=== PATIENT | female | born 1960 | race Hispanic/Latino ===

== ENCOUNTER 2018-11-02 08:47 | Inpatient (IN) | payer MEDICARE, MEDICAID ==
[2018-11-02 09:04] VITALS: BMI 29.2
[2018-11-02] MEDS ORDERED: Sodium Chloride 0.9% 1,000 ML IV STA (09:05)
--- NOTE | 2018-11-02 09:19 | ED PDOC ---
Arrival/HPI - General Chief Complaint: Abdominal Pain Time Seen by Provider: 11/02/18 08:49 Historian: Patient - History of Present Illness Narrative History of Present Illness (Text): 11/02/18 09:22 A 58 year old female, whose past medical history includes gallstones, COPD and [place] (5 yrs ago), presents to the emergency department complaining of right-side abdominal pain. Patient reports she was recently in a hospital down in [facility], where she was diagnosed with cholecystitis. Patient was prescribed antibiotics, which she completed about 3 weeks ago. Patient mentions she was instructed to go to the ER if she began experiencing back pain and fever. Notes experiencing those symptoms at this time, along with multiple episodes of vomiting. States she has not taken anything for pain. Patient denies any other complaints at this time. No PMD Past Medical History - Provider Review Nursing Documentation Reviewed: Yes - Reproductive Menopause: Yes - Cardiac Hx Cardiac Disorders: Yes Hx Hypertension: Yes - Pulmonary Hx Chronic Obstructive Pulmonary Disease (COPD): Yes - Gastrointestinal Hx Gastrointestinal Disorders: Yes Hx Gall Bladder Disease: Yes Hx Gastroesophageal Reflux: Yes Hx Gastrointestinal Ulcer: Yes - Psychiatric Hx Substance Use: No - Surgical History Hx Musculoskeletal Surgery: Yes - Anesthesia Hx Anesthesia: Yes Hx Anesthesia Reactions: No Hx Malignant Hyperthermia: No Family/Social History - Physician Review Nursing Documentation Reviewed: Yes Family/Social History: No Known Family HX Smoking Status: Heavy Smoker > 10 Cigarettes Daily Hx Alcohol Use: No Hx Substance Use: No Allergies/Home Meds Allergies/Adverse Reactions: Allergies chocolate flavor Allergy (Verified 11/02/18 09:03) RASH peanut Allergy (Verified 11/02/18 09:03) ANGIOEDEMA Home Medications: Home Meds Medication Instructions Recorded Confirmed Atorvastatin [Lipitor] 10 mg PO DIN 11/02/18 11/02/18 Clopidogrel [Plavix] 75 mg PO DAILY 11/02/18 11/02/18 Fluticasone/Vilanterol 100/25 1 puff PO DAILY 11/02/18 11/02/18 [Breo Ellipta 100-25 MCG INH] Mirtazapine [Remeron] 15 mg PO HS 11/02/18 11/02/18 Olanzapine [Zyprexa] 5 mg PO BID 11/02/18 11/02/18 Pantoprazole [Protonix] 40 mg PO DAILY 11/02/18 11/02/18 Pregabalin [Lyrica] 50 mg PO TID 11/02/18 11/02/18 RX: Aspirin [Aspirin Chewable] 81 mg PO DAILY 11/02/18 11/02/18 amLODIPine [Norvasc] 5 mg PO DAILY 11/02/18 11/02/18 Review of Systems - Physician Review All systems were reviewed & negative as marked: Yes - Review of Systems Constitutional: Fevers Gastrointestinal: Abdominal Pain (right-side), Vomiting Musculoskeletal: Back Pain Physical Exam Vital Signs Reviewed: Yes Vital Signs Temp Pulse Resp BP Pulse Ox 11/02/18 08:48 98.7 F 92 H 18 135/88 99 Temperature: Afebrile Blood Pressure: Normal Pulse: Regular Respiratory Rate: Normal Appearance: Positive for: Well-Appearing, Non-Toxic, Comfortable Pain Distress: None Mental Status: Positive for: Alert and Oriented X 3 - Systems Exam Head: Present: Atraumatic, Normocephalic Pupils: Present: PERRL Extroacular Muscles: Present: EOMI Conjunctiva: Present: Normal Mouth: Present: Moist Mucous Membranes Neck: Present: Normal Range of Motion Respiratory/Chest: Present: Clear to Auscultation, Good Air Exchange. No: Respiratory Distress, Accessory Muscle Use, Tachypneic Cardiovascular: Present: Regular Rate and Rhythm, Normal S1, S2. No: Murmurs, Tachycardic Abdomen: Present: Tenderness (tenderness to palpation at RUQ). No: Distention, Peritoneal Signs Back: Present: Normal Inspection Upper Extremity: Present: Tenderness (right shoulder). No: Cyanosis, Edema Lower Extremity: Present: Normal Inspection. No: Edema Neurological: Present: GCS=15, CN II-XII Intact, Speech Normal Skin: Present: Warm, Dry, Normal Color. No: Rashes Psychiatric: Present: Alert, Oriented x 3, Normal Insight, Normal Concentration Medical Decision Making ED Course and Treatment: 11/02/18 09:24 Impression: 58 year old female with right-side abdominal pain, multiple episodes of vomiting, back pain, and fever. Plan: -- EKG -- Abdominal Ultrasound -- Chest X-ray -- Labs -- Venous Blood Gas -- Toradol -- Reglan --Maolox -- --Pepcid -- IV Fluids -- Urinalysis -- Reassess and disposition Progress Notes: 11/02/2018 10:46 Labs reviewed with no elevation in bilirubin and transaminases. Surgery resident evaluated patient with no acute surgical intervention to be offered at this time. Upon interrogation, patient reports feelings of suicidal ideation. 11/02/18 12:43 PES feather mixer called. Patient is medically cleared at this time. 11/02/18 13:43 PES feather mixer assesses patient deeming her eligible for inpatient psychiatric admission. She is stable for transfer to the floor - Lab Interpretations Lab Results: 11/02/18 09:42 11/02/18 09:42 Lab Results 11/02/18 09:42: Free T4 0.85, TSH 3rd Generation Pending, Alcohol, Quantitative < 10 11/02/18 09:42: Salicylates < 1 L 11/02/18 09:42: Sodium 134, Chloride 96 L, Potassium 4.7, Carbon Dioxide 23, Anion Gap 20, BUN 13, Creatinine 0.6 L, Est GFR ( Amer) > 60, Est GFR (Non-Af Amer) > 60, Random Glucose 72, Calcium 9.8, Magnesium 1.8, Total Bilirubin 0.8, AST 35, ALT 32, Alkaline Phosphatase 98, Troponin I < 0.01, Total Protein 8.3, Albumin 4.6, Globulin 3.7, Albumin/Globulin Ratio 1.2, Lipase 40 11/02/18 09:42: pO2 41, VBG pH 7.31 L, VBG pCO2 44.0, VBG HCO3 22.2, VBG Total CO2 23.6, VBG O2 Sat (Calc) 78.4 H, VBG Base Excess -4.1 L, VBG Potassium 4.0, Sodium 132.0, Chloride 95.0 L, Glucose 72, Lactate 2.0, FiO2 21.0, Venous Blood Potassium 4.0 11/02/18 09:42: Urine Color Yellow, Urine Appearance Clear, Urine pH 6.0, Ur Specific [place] 1.020, Urine Protein Negative, Urine Glucose (UA) Negative, Urine Ketones >=80, Urine Blood Trace-intact H, Urine Nitrate Negative, Urine Bi lirubin Negative, Urine Urobilinogen 0.2, Ur Leukocyte Esterase Negative, Urine RBC 1 - 3 H, Urine WBC 0 - 2, Ur Epithelial Cells 1 - 3, Urine Bacteria Few 11/02/18 09:42: PT 11.3, INR 0.98, APTT 27.8 11/02/18 09:42: WBC 7.9, RBC 4.24, Hgb 12.3, Hct 37.1, MCV 87.5, MCH 29.0, MCHC 33.2, RDW 14.7 H, Plt Count 341, MPV 9.2, Gran % 64.8, Lymph % (Auto) 24.6, [place] % (Auto) 9.6 H, Eos % (Auto) 0.1 L, Baso % (Auto) 0.9, Gran # 5.09, Lymph # (Auto) 1.9, [place] # (Auto) 0.8 H, Eos # (Auto) 0.0, Baso # (Auto) 0.07 I have reviewed the lab results: Yes - RAD Interpretation Narrative RAD Interpretations (Text): 11/02/2018 10:10 Chest X-ray IMPRESSION: No active pulmonary disease. COPD. Dictator: Evelyn Gilliland MD Radiology Orders: 11/02/18 09:05 CHEST PORTABLE [RAD] Stat ABDOMEN COMPLETE [US] Stat - EKG Interpretation EKG Interpretation (Text): 11/02/18 12:45 Abdominal Ultrasound IMPRESSION: No cholethiasis or or biliary dilatation. Dictator: Evelyn Gilliland MD Interpreted by ED Physician: Yes - Medication Orders Current Medication Orders: Sodium Chloride (Sodium Chloride 0.9%) 1,000 mls @ 1,000 mls/hr IV .Q1H STA Stop: 11/02/18 10:04 Discontinued Medications Ketorolac Tromethamine (Toradol) 30 mg IVP STAT STA Stop: 11/02/18 09:06 Metoclopramide HCl (Reglan) 10 mg IVP STAT STA Stop: 11/02/18 09:06 - Scribe Statement The provider has reviewed the documentation as recorded by the Deborah Ayala Provider Scribe Attestation: All medical record entries made by the Jayibcaitlin were at my direction and personally dictated by me. I have reviewed the chart and agree that the record accurately reflects my personal performance of the history, physical exam, medical decision making, and the department course for this patient. I have also personally directed, reviewed, and agree with the discharge instructions and disposition. Disposition/Present on Arrival - Present on Arrival Any Indicators Present on Arrival: No History of DVT/PE: No History of Uncontrolled Diabetes: No Urinary Catheter: No History of Decub. Ulcer: No History Surgical Site Infection Following: None - Disposition Have Diagnosis and Disposition been Completed?: Yes Diagnosis: Depression Disposition: HOSPITALIZED Disposition Time: 13:00 Patient Plan: Admission Patient Problems: Current Active Problems Problem Status Onset Anxiety Acute Depression Acute Condition: STABLE
[2018-11-02 10:04] LABS: BASO # 0.07 K/mm3 (0.0-2.0); BASO % 0.9 % (0.0-3.0); EOS % 0.1 % (1.5-5.0); GRAN # 5.09 (1.4-6.5); GRAN % 64.8 % (50.0-68.0); HEMOGLOBIN 12.3 g/dL (12.0-16.0); LYMPH # 1.9 (1.2-3.4); LYMPH % 24.6 % (22.0-35.0); MEAN CELL VOLUME 87.5 fl (80.0-105.0); MEAN CORPUSCULAR HGB CONC 33.2 g/dl (31.0-37.0); MEAN PLATELET VOLUME 9.2 fl (7.0-11.0); MONO # 0.8 (0.1-0.6); MONO % 9.6 % (1.0-6.0); RBC 4.24 10^6/uL (3.5-6.1); RED CELL DISTRIBUTION WIDTH 14.7 % (11.5-14.5); WHITE BLOOD COUNT 7.9 10^3/uL (4.5-11.0)
[2018-11-02 10:09] LABS: VENOUS BLOOD GAS BASE EXCESS -4.1 mmol/L (0.0-2.0); VENOUS BLOOD GAS PO2 41 mm/Hg (30-55); VENOUS BLOOD PH 7.31 (7.32-7.43)
[2018-11-02 10:12] LABS: INR 0.98; PARTIAL THROMBOPLASTIN TIME 27.8 Seconds (25.1-36.5); PROTHROMBIN TIME 11.3 SECONDS (9.4-12.5)
--- NOTE | 2018-11-02 10:13 | RAD ---
Date of service: 11/02/2018 HISTORY: RUQ abdominal pain r/o free air COMPARISON: No prior. FINDINGS: LUNGS: The lungs are hyperinflated and there is peribronchial thickening with chronic changes in both lungs. No focal consolidation. PLEURA: No pleural effusions or pneumothorax. CARDIOVASCULAR: The heart is normal in size. No aortic atherosclerotic calcifications present. OSSEOUS STRUCTURES: Within normal limits for the patient's age. VISUALIZED UPPER ABDOMEN: Normal. OTHER FINDINGS: None. IMPRESSION: No active pulmonary disease. COPD.
[2018-11-02 10:26] LABS: TROPONIN I < 0.01 ng/mL
[2018-11-02 10:36] LABS: ALB/GLOB RATIO 1.2 (1.1-1.8); ALBUMIN 4.6 g/dL (3.0-4.8); ALT/SGPT 32 U/L (7-56); AST/SGOT 35 U/L (14-36); BLOOD UREA NITROGEN 13 mg/dL (7-21); CALCIUM 9.8 mg/dL (8.4-10.5); GFR NON-AFRICAN AMERICAN > 60; LIPASE 40 U/L (23-300)
[2018-11-02 10:40] LABS: URINE APPEARANCE CLEAR (CLEAR); URINE BILIRUBIN NEGATIVE (NEGATIVE); URINE BLOOD TRACE-INTACT (NEGATIVE); URINE COLOR YELLOW (YELLOW); URINE GLUCOSE (UA) NEGATIVE (NEGATIVE); URINE LEUKOCYTE ESTERASE NEGATIVE Leu/uL (NEGATIVE); URINE PROTEIN NEGATIVE mg/dL (<30 mg/dL); URINE UROBILINOGEN 0.2 E.U./dL (<1 E.U./dL)
[2018-11-02 10:44] LABS: URINE BACTERIA FEW /hpf; URINE WBC 0 - 2 /hpf (0-6)
--- NOTE | 2018-11-02 10:50 | US ---
Date of service: 11/02/2018 HISTORY: RUQ pain w/ h/o cholecystitis COMPARISON: None. TECHNIQUE: Grayscale imaging was performed. FINDINGS: LIVER: Measures 13.7 cm. Normal echogenicity of the liver parenchyma. No mass. No intrahepatic bile duct dilatation. GALLBLADDER: There are no gallstones, wall thickening or pericholecystic fluid. The sonographic Lindo's sign is negative. COMMON BILE DUCT: Measures 5.2 mm. No stones. No dilatation. PANCREAS: Unremarkable as visualized. No mass. No ductal dilatation. RIGHT KIDNEY: Measures 10.4cm. Normal echogenicity. No calculus, mass, or hydronephrosis. LEFT KIDNEY: Measures 9.5cm. Normal echogenicity. No calculus, mass, or hydronephrosis. SPLEEN: Normal in size and contour. No mass. AORTA: No aneurysmal dilatation. IVC: Unremarkable. OTHER FINDINGS: None. IMPRESSION: No cholelithiasis or biliary dilatation.
--- NOTE | 2018-11-02 11:29 | CP.PCM.CON ---
History of Present Illness - History of Present Illness History of Present Illness: Resident Progress Note for Dr. Middleton Patient is a 58 year old female with past medical history peptic ulcer disease, COPD, and M.I. presenting with chief complaint of abdominal pain and back pain which began approximately a month prior. Patient also admits to subjective fevers, nausea, vomiting, diarrhea. Patient states she was diagnosed with cholecysitis recently for which she completed a course of antibiotics 3 weeks prior. Her most recent endoscopy was one month ago which showed peptic ulcer disease. Denies chills, chest pain, shortness of breath. Review of Systems - Review of Systems All systems: reviewed and no additional remarkable complaints except (as stated in HPI) Past Patient History - Past Social History Smoking Status: Heavy Smoker > 10 Cigarettes Daily - CARDIAC Hx Cardiac Disorders: Yes Hx Hypertension: Yes - PULMONARY Hx Chronic Obstructive Pulmonary Disease (COPD): Yes - GASTROINTESTINAL Hx Gastrointestinal Disorders: Yes Hx Gall Bladder Disease: Yes Hx Gastroesophageal Reflux: Yes - PSYCHIATRIC Hx Substance Use: No - SURGICAL HISTORY Hx Musculoskeletal Surgery: Yes - ANESTHESIA Hx Anesthesia: Yes Hx Anesthesia Reactions: No Hx Malignant Hyperthermia: No Meds Allergies/Adverse Reactions: Allergies Allergy/AdvReac Type Severity Reaction Status Date / Time chocolate flavor Allergy RASH Verified 11/02/18 09:03 peanut Allergy ANGIOEDEMA Verified 11/02/18 09:03 Physical Exam - Constitutional Appears: Non-toxic, No Acute Distress - Head Exam Head Exam: ATRAUMATIC, NORMOCEPHALIC - Eye Exam Eye Exam: EOMI - ENT Exam ENT Exam: Mucous Membranes Moist - Respiratory Exam Respiratory Exam: NORMAL BREATHING PATTERN. absent: Accessory Muscle Use, Respiratory Distress - Cardiovascular Exam Cardiovascular Exam: REGULAR RHYTHM, +S1, +S2 - GI/Abdominal Exam GI & Abdominal Exam: Soft, Tenderness (mild epigastric ). absent: Distended, Firm, Guarding, Mass, Rebound, Rigid - Extremities Exam Extremities exam: Positive for: normal inspection. Negative for: pedal edema - Neurological Exam Neurological exam: Alert, Oriented x3 - Psychiatric Exam Psychiatric exam: Normal Affect, Normal Mood - Skin Skin Exam: Dry, Intact, Normal Color Results - Vital Signs Recent Vital Signs: Last Vital Signs Temp 98.7 F 11/02/18 08:48 Pulse 92 H 11/02/18 08:48 Resp 18 11/02/18 08:48 BP 135/88 11/02/18 08:48 Pulse Ox 99 01/15/19 08:48 - Labs Result Diagrams: 11/02/18 09:42 11/02/18 09:42 Labs: Laboratory Results - last 24 hr 11/02/18 11/02/18 11/02/18 09:42 09:42 09:42 WBC 7.9 RBC 4.24 Hgb 12.3 Hct 37.1 MCV 87.5 MCH 29.0 MCHC 33.2 RDW 14.7 H Plt Count 341 MPV 9.2 Gran % 64.8 Lymph % (Auto) 24.6 [place] % (Auto) 9.6 H Eos % (Auto) 0.1 L Baso % (Auto) 0.9 Gran # 5.09 Lymph # (Auto) 1.9 [place] # (Auto) 0.8 H Eos # (Auto) 0.0 Baso # (Auto) 0.07 PT 11.3 INR 0.98 APTT 27.8 pO2 VBG pH VBG pCO2 VBG HCO3 VBG Total CO2 VBG O2 Sat (Calc) VBG Base Excess VBG Potassium Sodium Chloride Glucose Lactate FiO2 Potassium Carbon Dioxide Anion Gap BUN Creatinine Est GFR ( Amer) Est GFR (Non-Af Amer) Random Glucose Calcium Magnesium Total Bilirubin AST ALT Alkaline Phosphatase Troponin I Total Protein Albumin Globulin Albumin/Globulin Ratio Lipase Venous Blood Potassium Urine Color Yellow Urine Appearance Clear Urine pH 6.0 Ur Specific [place] 1.020 Urine Protein Negative Urine Glucose (UA) Negative Urine Ketones >=80 Urine Blood Trace-intact H Urine Nitrate Negative Urine Bilirubin Negative Urine Urobilinogen 0.2 Ur Leukocyte Esterase Negative Urine RBC 1 - 3 H Urine WBC 0 - 2 Ur Epithelial Cells 1 - 3 Urine Bacteria Few 11/02/18 11/02/18 09:42 09:42 WBC RBC Hgb Hct MCV MCH MCHC RDW Plt Count MPV Gran % Lymph % (Auto) [place] % (Auto) Eos % (Auto) Baso % (Auto) Gran # Lymph # (Auto) [place] # (Auto) Eos # (Auto) Baso # (Auto) PT INR APTT pO2 41 VBG pH 7.31 L VBG pCO2 44.0 VBG HCO3 22.2 VBG Total CO2 23.6 VBG O2 Sat (Calc) 78.4 H VBG Base Excess -4.1 L VBG Potassium 4.0 Sodium 132.0 134 Chloride 95.0 L 96 L Glucose 72 Lactate 2.0 FiO2 21.0 Potassium 4.7 Carbon Dioxide 23 Anion Gap 20 BUN 13 Creatinine 0.6 L Est GFR ( Amer) > 60 Est GFR (Non-Af Amer) > 60 Random Glucose 72 Calcium 9.8 Magnesium 1.8 Total Bilirubin 0.8 AST 35 ALT 32 Alkaline Phosphatase 98 Troponin I < 0.01 Total Protein 8.3 Albumin 4.6 Globulin 3.7 Albumin/Globulin Ratio 1.2 Lipase 40 Venous Blood Potassium 4.0 Urine Color Urine Appearance Urine pH Ur Specific [place] Urine Protein Urine Glucose (UA) Urine Ketones Urine Blood Urine Nitrate Urine Bilirubin Urine Urobilinogen Ur Leukocyte Esterase Urine RBC Urine WBC Ur Epithelial Cells Urine Bacteria Assessment & Plan - Assessment and Plan (Free Text) Assessment: Patient is a 58 year old female with past medical history peptic ulcer disease, COPD, and M.I. presenting with chief complaint of abdominal pain and back pain Plan: Abdominal pain - history of peptic ulcer disease - afebrile, no leukocytosis, LFTs within normal limits - Abd U/S shows no signs of cholecystitis, no renal calculi - CXR unremarkable - no surgical intervention indicated at this time Nikkie Vega PGY-1 - Date & Time Date: 11/02/18 Time: 11:31
[2018-11-02 12:35] LABS: FREE T4 0.85 ng/dL (0.78-2.19)
[2018-11-02] MEDS ORDERED: Alum-Mag Hydrox-Simethicone Susp (30 mL) PO STA (12:42)
[2018-11-02] MEDS ORDERED: Atrop/Hyosc/Scopal/PB Elixir (120 ml) PO STA (12:42)
[2018-11-02 12:55] LABS: BENZODIAZEPINES, UR NEGATIVE (NEGATIVE)
[2018-11-02 13:02] LABS: BARBITURATES, UR NEGATIVE (NEGATIVE); OPIATES, UR NEGATIVE (NEGATIVE); PHENCYCLIDINE, UR NEGATIVE (NEGATIVE)
[2018-11-02] MEDS ORDERED: Magnesium Hydroxide Susp 30 ml UD PO PRN (16:54)
--- NOTE | 2018-11-02 18:39 | PCM.BM ---
<Jenniffer Gonzalez - Last Filed: 11/02/18 18:35> Treatment Plan Problems - Problems identified on initial assessmt anxiety Date Initiated: 11/02/18 Time Initiated: 18:30 Assessment reference: NA Status: Active Priority: 1 fear Date Initiated: 11/02/18 Time Initiated: 18:30 Status: Active Priority: 2 panic attacks Date Initiated: 11/02/18 Time Initiated: 18:30 Assessment reference: NA Status: Active Priority: 3 altered sleep pattern Date Initiated: 11/02/18 Time Initiated: 18:30 Assessment reference: NA Status: Active Priority: 4 Treatment assets and liabiliti Patient Assests: cooperative, ADL independent, cognitively intact Patient Liabilities: live alone, financial problems, poor support system - Milieu Protocol Maintain good personal hygiene: every shift Encourage regular showers, every shift Remind patient to perform daily oral care, every shift Assist patient to perform ADL's Maintain personal safety: every shift Educate patient to report safety concerns to staff, every shift Monitor environment for contraband/sharps Medication safety: Monitor for expected outcome, potential side effects: every shift, Assess barriers to learning: every shift, Assess readiness for medication education: every shift Discharge/Continuing Care - Education Needs Education Needs: Patient Medication, Patient Diagnosis/Disease Process, Patient Coping Skills, Patient Placement options, Patient Community resources, Patient Activities of Daily Living, Patient Pain, Patient Nutrition, Patient Health Practices/Safety, Patient Personal Hygiene/Grooming, Patient Aftercare Safety Plan - Discharge Discharge Criteria: Tolerates medication w/o severe side effects, Free of Suicidal thoughts, Normal sleep pattern, Ability to care for self, Reduction of target symptoms Discharge to:: Home <Teresa Stahl - Last Filed: 11/03/18 13:52> - Diagnosis (1) Depression Status: Acute Interventions: 11/03/18 13:52 Psychoeducation Psychopharmacology/adjustment of medications as needed/ monitoring possible side effects Evaluate pt on daily basis Compliance with medications and follow up appointments Suicide and homicide risk assessment and prevention Relapse prevention Reduction of symptoms Improve functional status Family involvement As outpatient: cognitive behavioral therapy (2) Anxiety Status: Acute Interventions: 11/03/18 13:52 Psychoeducation Psychopharmacology/adjustment of medications as needed/ monitoring possible side effects Evaluate pt on daily basis Discussion of importance of being compliant with medications and follow up appointments Suicide and homicide risk assessment and prevention, coping strategies, safety plan Reduction of symptoms Relaxation techniques and breathing exercises Improve functional status Family involvement Cognitive behavioral therapy as outpatient <Tamara Tello - Last Filed: 11/03/18 16:07>
--- NOTE | 2018-11-03 07:37 | CARD ---
APPROVED REPORT Date of service: 11/02/2018 EKG Measurement Heart [id number] <Conclusion> Normal sinus rhythm Possible Left atrial enlargement Possible septal infarct, age undetermined
[2018-11-03] MEDS: Pantoprazole 40 mg EC Tab PO SCH (09:48)
--- NOTE | 2018-11-03 10:34 | HP ---
DATE OF EXAM: 11/03/2018 HISTORY OF PRESENT ILLNESS: The patient is in the Behavioral Care Unit. The patient has ALLERGY TO PEANUTS AND CHOCOLATE. She has past history of dermatitis and angioedema for peanuts. The patient's past history is significant in that the patient has depression and the patient has past history of coronary artery disease, has been treated medically, has not had any intervention. The patient had 2 episodes of cerebrovascular events, stroke (the patient has been treated for that). The patient has history of chronic lung disease. The patient has history of hypertension and hypothyroidism. SOCIAL HISTORY: The patient is a smoker. PAST SURGICAL HISTORY: She has injury to the right arm, compound fracture that has completely healed. The patient has no other advanced surgical procedures. PHYSICAL EXAMINATION: VITAL SIGNS: The patient's pulse is 89, blood pressure 153/102, but standard blood pressure is 131/75. The patient respirations 22 per minute, HEENT: The patient's head is normocephalic. She is sitting in the chair comfortably answers all questions. NECK: The patient's neck and thyroid is not clinically enlarged. No lymphadenopathy. Carotid pulses are present. LUNGS: Trachea is central. Breath sounds vesicular. No localizing signs. HEART: Normal sinus rhythm. S1 and S2 present. Sinus tachycardia. ABDOMEN: Soft. Liver and spleen not palpable. CENTRAL NERVOUS SYSTEM: The patient is conscious, rational and oriented. She is able to move all 4 limbs and ambulation seems to be adequate. MEDICATIONS: List of medicine, the patient is on Ativan 1 mg every 6 hours p.r.n. for agitation, Geodon 20 mg every 6 hours p.r.n. for agitation. The patient is on Prozac 20 mg daily, Sonata 5 mg daily for sleep and the patient is supposed to be on Plavix 75 mg. The patient's medications have to be placed. She is also on pantoprazole 40 mg daily. The patient is on amlodipine 5 mg daily, Lipitor 10 mg daily. We will have to place these medications. She gets Breo Ellipta that is for chronic lung disease, the patient gets it once a day. DIET: The patient's diet is heart healthy diet. PLAN: We will follow up medically and we will introduce some medications she was supposed to be on. We want to check these medicines and add the Lipitor on this lady. She is supposed to be on Protonix, Plavix, Lipitor and amlodipine. Jose Alfredo Bolanos MD [facility]
--- NOTE | 2018-11-03 13:24 | CP.PCM.CON ---
<Erickson Paul - Last Filed: 11/03/18 17:33> History of Present Illness - History of Present Illness History of Present Illness: GI Consult Note for Dr. Cho Reason for Consultation: Abdominal pain Patient is a 58 yo F with PMH of PUD, COPD, and NV presents to [facility] for 1 month of abdominal and back pain. Patient states that she was admitted to another hospital about one month ago and was diagnosed with acute cholecystitis. Patient was treated with IV antibiotics and PO antibiotics on discharge. Patient was not aware of any plan for cholecystectomy at that time. Patient is currently admitted to [facility] for depression. GI was consulted due to abdominal pain. At time of admission patient complained of subjective fever as well as n/v/d. Patient reports pain in RUQ and midback. Pain will intermittently improve. but worsens with food. Patient denies any alleviating factors. Currently, patient denies CP, SOB, n/v/d, fever, chills, HERNANDEZ, or dizziness. PMH: as above Surg: none All: Chocolate flavor, peanut SH: Admits to smoking; denied EtOH and illicit drug use FHx: non-contributory Review of Systems - Review of Systems All systems: reviewed and no additional remarkable complaints except (12 point ROS reviewed and is negative other than what is stated in HPI.) Past Patient History - Past Social History Smoking Status: Heavy Smoker > 10 Cigarettes Daily - CARDIAC Hx Cardiac Disorders: Yes Hx Hypertension: Yes - PULMONARY Hx Tuberculosis: No - NEUROLOGICAL HX Cerebrovascular Accident: No Hx Seizures: No - ENDOCRINE/METABOLIC Hx Hypothyroidism: Yes - HEMATOLOGICAL/ONCOLOGICAL Hx Cancer: No Hx Human Immunodeficiency Virus (HIV): No - MUSCULOSKELETAL/RHEUMATOLOGICAL Hx Musculoskeletal Disorders: No - GASTROINTESTINAL Hx Gastrointestinal Disorders: Yes Hx Gall Bladder Disease: Yes Hx Gastroesophageal Reflux: Yes - GENITOURINARY/GYNECOLOGICAL Hx Sexually Transmitted Disorders: No - PSYCHIATRIC Hx Anxiety: Yes Hx Depression: Yes Hx Substance Use: No - SURGICAL HISTORY Hx Musculoskeletal Surgery: Yes - ANESTHESIA Hx Anesthesia: Yes Hx Anesthesia Reactions: No Hx Malignant Hyperthermia: No Meds Allergies/Adverse Reactions: Allergies Allergy/AdvReac Type Severity Reaction Status Date / Time chocolate flavor Allergy RASH Verified 11/02/18 09:03 peanut Allergy ANGIOEDEMA Verified 11/02/18 09:03 - Medications Medications: Current Medications Acetaminophen (Tylenol 325mg Tab) 650 mg PO Q6H PRN PRN Reason: Pain, moderate (4-7) Al Hydrox/Mg Hydrox/Simethicone (Maalox Plus 30 Ml) 30 ml PO DAILY PRN PRN Reason: Indigestion / Heartburn Amlodipine Besylate (Norvasc) 5 mg PO DAILY [facility] Last Admin: 11/03/18 09:48 Dose: 5 mg Aspirin (Aspirin Chewable) 81 mg PO DAILY [facility] Atorvastatin Calcium (Lipitor) 10 mg PO DIN [facility] Clopidogrel Bisulfate (Plavix) 75 mg PO DAILY [facility] Last Admin: 11/03/18 09:48 Dose: 75 mg Fluoxetine HCl (Prozac) 20 mg PO DAILY [facility] Last Admin: 11/03/18 08:24 Dose: 20 mg Lorazepam (Ativan) 1 mg PO Q6 PRN; Protocol PRN Reason: Anxiety Last Admin: 11/03/18 08:24 Dose: 1 mg Lorazepam (Ativan) 1 mg IM Q6H PRN; Protocol PRN Reason: Anxiety Magnesium Hydroxide (Milk Of Magnesia) 30 ml PO DAILY PRN PRN Reason: Constipation Pantoprazole Sodium (Protonix Ec Tab) 40 mg PO DAILY [facility] Last Admin: 11/03/18 09:48 Dose: 40 mg Pregabalin (Lyrica) 50 mg PO TID [facility] Zaleplon (Sonata) 5 mg PO HS PRN PRN Reason: Insomnia Ziprasidone (Geodon Cap) 20 mg PO Q6 PRN; Protocol PRN Reason: Agitation Ziprasidone (Geodon Inj) 20 mg IM Q6 PRN; Protocol PRN Reason: Agitation Physical Exam - Constitutional Appears: No Acute Distress - Head Exam Head Exam: NORMAL INSPECTION - Eye Exam Eye Exam: EOMI, Normal appearance - ENT Exam ENT Exam: Mucous Membranes Moist, Normal Exam - Neck Exam Neck exam: Positive for: Normal Inspection - Respiratory Exam Respiratory Exam: Clear to Auscultation Bilateral. absent: Rales, Rhonchi, Wheezes - Cardiovascular Exam Cardiovascular Exam: RRR, +S1, +S2. absent: Gallop, Rubs, Systolic Murmur - GI/Abdominal Exam GI & Abdominal Exam: Soft, Tenderness (RUQ, positive Lindo's sign). absent: Distended, Guarding, Rebound - Extremities Exam Extremities exam: Positive for: normal inspection - Back Exam Back exam: NORMAL INSPECTION - Neurological Exam Neurological exam: Alert, Normal Gait, Oriented x3 - Psychiatric Exam Psychiatric exam: Depressed - Skin Skin Exam: Normal Color, Warm Results - Vital Signs Recent Vital Signs: Last Vital Signs Temp 98.6 F 11/03/18 07:34 Pulse 89 11/03/18 09:48 Resp 22 11/03/18 07:34 BP 153/102 H 11/03/18 09:48 Pulse Ox 99 11/02/18 15:23 - Labs Result Diagrams: 11/02/18 09:42 11/02/18 09:42 Labs: Laboratory Results - last 24 hr 11/02/18 12:11 Urine Opiates Screen Negative Ur Barbiturates Screen Negative Ur Phencyclidine Scrn Negative Ur Amphetamines Screen Negative U Oth Cocaine Metabols Negative U Cannabinoids Screen Negative Assessment & Plan - Assessment and Plan (Free Text) Assessment: Patient is a 58 F with PMH of PUD, COPD, NV is admitted to psychiatry for depression. GI consulted for abdominal pain with history of cholecystitis. Abdominal ultrasound shows no signs of acute cholecystitis. LFT's unremarkable, no signs of cholestasis. 1. Abdominal Pain 2. Biliary Colic 3. Depression Plan: - Abdomen/Pelvis CT with PO and IV contrast - Surgery recommended outpatient followup Patient seen and discussed in detail with Dr. Cho. Frank Paul DO PGY2 <Chandler Cho V - Last Filed: 11/03/18 23:57> Meds - Medications Medications: Current Medications Acetaminophen (Tylenol 325mg Tab) 650 mg PO Q6H PRN PRN Reason: Pain, moderate (4-7) Al Hydrox/Mg Hydrox/Simethicone (Maalox Plus 30 Ml) 30 ml PO DAILY PRN PRN Reason: Indigestion / Heartburn Amlodipine Besylate (Norvasc) 5 mg PO DAILY [facility] Last Admin: 11/03/18 09:48 Dose: 5 mg Aspirin (Aspirin Chewable) 81 mg PO DAILY [facility] Atorvastatin Calcium (Lipitor) 10 mg PO DIN [facility] Last Admin: 11/03/18 17:38 Dose: 10 mg Clopidogrel Bisulfate (Plavix) 75 mg PO DAILY [facility] Last Admin: 11/03/18 09:48 Dose: 75 mg Lorazepam (Ativan) 1 mg PO Q6 PRN; Protocol PRN Reason: Anxiety Last Admin: 11/03/18 21:25 Dose: 1 mg Lorazepam (Ativan) 1 mg IM Q6H PRN; Protocol PRN Reason: Anxiety Magnesium Hydroxide (Milk Of Magnesia) 30 ml PO DAILY PRN PRN Reason: Constipation Nicotine (Nicoderm Cq) 1 patch TD DAILY [facility] Last Admin: 11/03/18 17:29 Dose: Not Given Pantoprazole Sodium (Protonix Ec Tab) 40 mg PO DAILY [facility] Last Admin: 11/03/18 09:48 Dose: 40 mg Pregabalin (Lyrica) 50 mg PO TID [facility] Last Admin: 11/03/18 17:38 Dose: 50 mg Sertraline HCl (Zoloft) 50 mg PO DAILY [facility] Zaleplon (Sonata) 5 mg PO HS PRN PRN Reason: Insomnia Last Admin: 11/03/18 21:25 Dose: 5 mg Ziprasidone (Geodon Cap) 20 mg PO Q6 PRN; Protocol PRN Reason: Agitation Ziprasidone (Geodon Inj) 20 mg IM Q6 PRN; Protocol PRN Reason: Agitation Results - Vital Signs Recent Vital Signs: Last Vital Signs Temp 98.6 F 11/03/18 07:34 Pulse 81 11/03/18 16:00 Resp 22 11/03/18 07:34 BP 123/89 11/03/18 16:00 Pulse Ox 99 11/02/18 15:23 - Labs Result Diagrams: 11/02/18 09:42 11/02/18 09:42 Attending/Attestation - Attestation I have personally seen and examined this patient.: Yes I have fully participated in the care of the patient.: Yes I have reviewed all pertinent clinical information: Yes Notes (Text): This is an addendum to GI consult report dictated by the Flight Radio Officer. The patient was seen and evaluated earlier. Medical records, lab studies, imagings were reviewed. Last 24 hours events reviewed. Agreed with the above treatment plan as outlined in Flight Radio Officer 's notes with the addition of the following 11/03/18 23:55
[2018-11-04] MEDS ORDERED: Barium Sulfate Susp 2.1% w/v, 2.0% w/w 450 mL Bottle PO ONE (00:54)
--- NOTE | 2018-11-04 08:31 | CP.PCM.PN ---
Subjective - Date & Time of Evaluation Date of Evaluation: 11/04/18 Time of Evaluation: 07:45 - Subjective Subjective: Patient seen this morning. she says that she had an abdominal ultrasound. Objective - Vital Signs/Intake and Output Vital Signs (last 24 hours): Temp Pulse Resp BP Pulse Ox 98.5 F 92 H 20 142/105 H 99 11/04/18 07:08 11/04/18 07:08 11/04/18 07:08 11/04/18 07:08 11/02/18 15:23 - Medications Medications: Current Medications Acetaminophen (Tylenol 325mg Tab) 650 mg PO Q6H PRN PRN Reason: Pain, moderate (4-7) Last Admin: 11/04/18 06:44 Dose: 650 mg Al Hydrox/Mg Hydrox/Simethicone (Maalox Plus 30 Ml) 30 ml PO DAILY PRN PRN Reason: Indigestion / Heartburn Amlodipine Besylate (Norvasc) 5 mg PO DAILY [facility] Last Admin: 11/03/18 09:48 Dose: 5 mg Aspirin (Aspirin Chewable) 81 mg PO DAILY [facility] Atorvastatin Calcium (Lipitor) 10 mg PO DIN [facility] Last Admin: 11/03/18 17:38 Dose: 10 mg Clopidogrel Bisulfate (Plavix) 75 mg PO DAILY [facility] Last Admin: 11/03/18 09:48 Dose: 75 mg Lorazepam (Ativan) 1 mg PO Q6 PRN; Protocol PRN Reason: Anxiety Last Admin: 11/04/18 06:20 Dose: 1 mg Lorazepam (Ativan) 1 mg IM Q6H PRN; Protocol PRN Reason: Anxiety Magnesium Hydroxide (Milk Of Magnesia) 30 ml PO DAILY PRN PRN Reason: Constipation Metoprolol Succinate (Toprol Xl) 50 mg PO BRK [facility] Nicotine (Nicoderm Cq) 1 patch TD DAILY [facility] Last Admin: 11/03/18 17:29 Dose: Not Given Pantoprazole Sodium (Protonix Ec Tab) 40 mg PO DAILY [facility] Last Admin: 11/03/18 09:48 Dose: 40 mg Pregabalin (Lyrica) 50 mg PO TID [facility] Last Admin: 11/03/18 17:38 Dose: 50 mg Sertraline HCl (Zoloft) 50 mg PO DAILY [facility] Zaleplon (Sonata) 5 mg PO HS PRN PRN Reason: Insomnia Last Admin: 11/03/18 21:25 Dose: 5 mg Ziprasidone (Geodon Cap) 20 mg PO Q6 PRN; Protocol PRN Reason: Agitation Ziprasidone (Geodon Inj) 20 mg IM Q6 PRN; Protocol PRN Reason: Agitation - Labs Labs: 11/02/18 09:42 11/02/18 09:42 PT 11.3 SECONDS (9.4-12.5) 11/02/18 09:42 INR 0.98 11/02/18 09:42 APTT 27.8 Seconds (25.1-36.5) 11/02/18 09:42 - Constitutional Appears: No Acute Distress - Head Exam Head Exam: ATRAUMATIC, NORMOCEPHALIC - Respiratory Exam Respiratory Exam: Clear to Ausculation Bilateral, NORMAL BREATHING PATTERN - Cardiovascular Exam Cardiovascular Exam: REGULAR RHYTHM, +S1, +S2 - GI/Abdominal Exam GI & Abdominal Exam: Soft, Normal Bowel Sounds. absent: Tenderness - Extremities Exam Extremities Exam: Normal Inspection - Neurological Exam Neurological Exam: Alert, Awake, Oriented x3 Assessment and Plan - Assessment and Plan (Free Text) Assessment: HTN H/O CVA Asthma Plan: continue Norvasc, blood pressure is elevated, will add Toprol continue Lipitor for hyperlipidemia Ultrasound of abdomen is negative for gallstones; no acute findings
--- NOTE | 2018-11-04 08:37 | CP.PCM.PN ---
<Keenan PaulErickson - Last Filed: 11/04/18 11:32> Subjective - Date & Time of Evaluation Date of Evaluation: 11/04/18 Time of Evaluation: 08:34 - Subjective Subjective: GI Progress Note for Dr. Cho Patient seen and examined at bedside. No acute overnight events. Patient states that abdominal pain is intermittent and is worse with fatty meals. Patient denies CP, SOB, n/v/d, fever, chills, HERNANDEZ, or dizziness. Objective - Vital Signs/Intake and Output Vital Signs (last 24 hours): Temp Pulse Resp BP Pulse Ox 98.5 F 92 H 20 142/105 H 99 11/04/18 07:08 11/04/18 07:08 11/04/18 07:08 11/04/18 07:08 11/02/18 15:23 - Medications Medications: Current Medications Acetaminophen (Tylenol 325mg Tab) 650 mg PO Q6H PRN PRN Reason: Pain, moderate (4-7) Last Admin: 11/04/18 06:44 Dose: 650 mg Al Hydrox/Mg Hydrox/Simethicone (Maalox Plus 30 Ml) 30 ml PO DAILY PRN PRN Reason: Indigestion / Heartburn Amlodipine Besylate (Norvasc) 5 mg PO DAILY [facility] Last Admin: 11/03/18 09:48 Dose: 5 mg Aspirin (Aspirin Chewable) 81 mg PO DAILY [facility] Atorvastatin Calcium (Lipitor) 10 mg PO DIN [facility] Last Admin: 11/03/18 17:38 Dose: 10 mg Clopidogrel Bisulfate (Plavix) 75 mg PO DAILY [facility] Last Admin: 11/03/18 09:48 Dose: 75 mg Lorazepam (Ativan) 1 mg PO Q6 PRN; Protocol PRN Reason: Anxiety Last Admin: 11/04/18 06:20 Dose: 1 mg Lorazepam (Ativan) 1 mg IM Q6H PRN; Protocol PRN Reason: Anxiety Magnesium Hydroxide (Milk Of Magnesia) 30 ml PO DAILY PRN PRN Reason: Constipation Metoprolol Succinate (Toprol Xl) 50 mg PO BRK [facility] Nicotine (Nicoderm Cq) 1 patch TD DAILY [facility] Last Admin: 11/03/18 17:29 Dose: Not Given Pantoprazole Sodium (Protonix Ec Tab) 40 mg PO DAILY [facility] Last Admin: 11/03/18 09:48 Dose: 40 mg Pregabalin (Lyrica) 50 mg PO TID [facility] Last Admin: 11/03/18 17:38 Dose: 50 mg Sertraline HCl (Zoloft) 50 mg PO DAILY [facility] Zaleplon (Sonata) 5 mg PO HS PRN PRN Reason: Insomnia Last Admin: 11/03/18 21:25 Dose: 5 mg Ziprasidone (Geodon Cap) 20 mg PO Q6 PRN; Protocol PRN Reason: Agitation Ziprasidone (Geodon Inj) 20 mg IM Q6 PRN; Protocol PRN Reason: Agitation - Labs Labs: 11/02/18 09:42 11/02/18 09:42 PT 11.3 SECONDS (9.4-12.5) 11/02/18 09:42 INR 0.98 11/02/18 09:42 APTT 27.8 Seconds (25.1-36.5) 11/02/18 09:42 - Constitutional Appears: No Acute Distress - Head Exam Head Exam: NORMAL INSPECTION - Eye Exam Eye Exam: EOMI, Normal appearance Pupil Exam: NORMAL ACCOMODATION - ENT Exam ENT Exam: Mucous Membranes Moist, Normal Exam - Neck Exam Neck Exam: Normal Inspection - Respiratory Exam Respiratory Exam: Clear to Ausculation Bilateral. absent: Rales, Rhonchi, Whe ezes - Cardiovascular Exam Cardiovascular Exam: RRR, +S1, +S2. absent: Gallop, Rubs, Murmur - GI/Abdominal Exam GI & Abdominal Exam: Soft, Tenderness (RUQ). absent: Distended, Rebound - Back Exam Back Exam: NORMAL INSPECTION - Neurological Exam Neurological Exam: Alert, Awake, Oriented x3 - Psychiatric Exam Psychiatric exam: Normal Affect, Normal Mood - Skin Skin Exam: Dry, Intact, Normal Color, Warm Assessment and Plan - Assessment and Plan (Free Text) Assessment: Patient is a 58 F with PMH of PUD, COPD, AL is admitted to psychiatry for depression. GI consulted for abdominal pain. Abdominal ultrasound shows no signs of acute cholecystitis. LFT's unremarkable, no signs of cholestasis. 1. Abdominal Pain 2. Depression Plan: - Abdomen/Pelvis CT with PO and IV contrast pending - Will obtain prior inpatient records, workup, EGD/colonoscopy - Surgery consulted - no surgical intervention at this time Patient seen and discussed in detail with Dr. Cho. Frank Paul, DO PGY2 <Marquis,Kovil V - Last Filed: 11/04/18 23:44> Objective - Vital Signs/Intake and Output Vital Signs (last 24 hours): Temp Pulse Resp BP Pulse Ox 98.5 F 79 17 120/86 99 11/04/18 07:08 11/04/18 15:00 11/04/18 09:29 11/04/18 15:00 11/02/18 15:23 - Medications Medications: Current Medications Acetaminophen (Tylenol 325mg Tab) 650 mg PO Q6H PRN PRN Reason: Pain, moderate (4-7) Last Admin: 11/04/18 06:44 Dose: 650 mg Al Hydrox/Mg Hydrox/Simethicone (Maalox Plus 30 Ml) 30 ml PO DAILY PRN PRN Reason: Indigestion / Heartburn Last Admin: 11/04/18 18:58 Dose: 30 ml Amlodipine Besylate (Norvasc) 5 mg PO DAILY [facility] Last Admin: 11/04/18 08:40 Dose: 5 mg Aspirin (Aspirin Chewable) 81 mg PO DAILY [facility] Last Admin: 11/04/18 08:38 Dose: Not Given Atorvastatin Calcium (Lipitor) 10 mg PO DIN [facility] Last Admin: 11/04/18 17:37 Dose: 10 mg Clopidogrel Bisulfate (Plavix) 75 mg PO DAILY [facility] Last Admin: 11/04/18 10:37 Dose: 75 mg Lorazepam (Ativan) 1 mg PO Q6 PRN; Protocol PRN Reason: Anxiety Last Admin: 11/04/18 18:54 Dose: 1 mg Lorazepam (Ativan) 1 mg IM Q6H PRN; Protocol PRN Reason: Anxiety Magnesium Hydroxide (Milk Of Magnesia) 30 ml PO DAILY PRN PRN Reason: Constipation Metoprolol Succinate (Toprol Xl) 50 mg PO BRK [facility] Last Admin: 11/04/18 08:38 Dose: 50 mg Nicotine (Nicoderm Cq) 1 patch TD DAILY [facility] Last Admin: 11/04/18 10:36 Dose: 1 patch Pantoprazole Sodium (Protonix Ec Tab) 40 mg PO DAILY [facility] Last Admin: 11/04/18 10:37 Dose: 40 mg Pregabalin (Lyrica) 50 mg PO TID [facility] Last Admin: 11/04/18 17:37 Dose: 50 mg Sertraline HCl (Zoloft) 50 mg PO DAILY [facility] Last Admin: 11/04/18 10:37 Dose: 50 mg Zaleplon (Sonata) 5 mg PO HS PRN PRN Reason: Insomnia Last Admin: 11/04/18 22:49 Dose: 5 mg Ziprasidone (Geodon Cap) 20 mg PO Q6 PRN; Protocol PRN Reason: Agitation Ziprasidone (Geodon Inj) 20 mg IM Q6 PRN; Protocol PRN Reason: Agitation - Labs Labs: 11/02/18 09:42 11/02/18 09:42 PT 11.3 SECONDS (9.4-12.5) 11/02/18 09:42 INR 0.98 11/02/18 09:42 APTT 27.8 Seconds (25.1-36.5) 11/02/18 09:42 Attending/Attestation - Attestation I have personally seen and examined this patient.: Yes I have fully participated in the care of the patient.: Yes I have reviewed all pertinent clinical information, including history, physical exam and plan: Yes Notes (Text): This is an addendum to GI followup report dictated by the Salon Stylist. The patient was seen and evaluated earlier. Medical records, lab studies, imagings were reviewed. Last 24 hours events reviewed. Agreed with the above treatment plan as outlined in Salon Stylist 's notes with the addition of the following Sonogram and CAT scan imagings were reviewed No gallstones noticed. Etiology for right upper quadrant abdmfort unclear need to Review of the previous GI workup from last hospitalization And discussed with nursing staff 11/04/18 23:43
[2018-11-04] MEDS: Metoprolol Succinate 50 mg XL Tab PO SCH (08:38)
[2018-11-04] MEDS ORDERED: Iohexol 350 MG/100 ML VIAL ONE (09:52)
--- NOTE | 2018-11-04 10:29 | CT ---
Date of service: 11/04/2018 PROCEDURE: CT Abdomen and Pelvis with contrast HISTORY: abdominal pain COMPARISON: None. TECHNIQUE: Contrast dose: 100 cc of Omni 350 Radiation dose: Total exam DLP = 516.01 mGy-cm. This CT exam was performed using one or more of the following dose reduction techniques: Automated exposure control, adjustment of the mA and/or kV according to patient size, and/or use of iterative reconstruction technique. FINDINGS: LOWER THORAX: Unremarkable. LIVER: Unremarkable. No gross lesion or ductal dilatation. GALLBLADDER AND BILE DUCTS: Unremarkable. PANCREAS: Unremarkable. No gross lesion or ductal dilatation. SPLEEN: Unremarkable. ADRENALS: Unremarkable. No mass. KIDNEYS AND URETERS: Unremarkable. No hydronephrosis. No solid mass. VASCULATURE: Unremarkable. No aortic aneurysm. Aortic calcification BOWEL: Unremarkable. No obstruction. No gross mural thickening. APPENDIX: Normal appendix. PERITONEUM: Unremarkable. No free fluid. No free air. LYMPH NODES: Unremarkable. No enlarged lymph nodes. BLADDER: Unremarkable. REPRODUCTIVE: Unremarkable. BONES: No acute fracture. OTHER FINDINGS: None. IMPRESSION: No acute intra-abdominal findings
[2018-11-04] MEDS: Pantoprazole 40 mg EC Tab PO SCH (10:37)
--- NOTE | 2018-11-04 14:50 | PCM.PYCHPN ---
Psychiatric Progress Note - Psychiatric Progress Note Patient seen today, length of contact: 30min Patient Chief Complaint: "I feel the same" Problems Identified/Issues Discussed: Suicide/ homicide prevention, past psychiatric h/o, current psychiatric symptoms, medical problems, risk/benefits and alternatives of medications, medications compliance, coping strategies, substance abuse h/o, relapse prevention, importance of follow up with psychiatrist and therapist, discharge plan. Medical Problems: 11/02/18 09:42 11/02/18 09:42 Lab Results 11/02/18 12:11: Urine Opiates Screen Negative, Urine Methadone Screen Negative, Ur Barbiturates Screen Negative, Ur Phencyclidine Scrn Negative, Ur Amphetamines Screen Negative, U Benzodiazepines Scrn Negative, U Oth Cocaine Metabols Negative, U Cannabinoids Screen Negative 11/02/18 09:42: Free T4 0.85, TSH 3rd Generation 1.19, Alcohol, Quantitative < 10 11/02/18 09:42: Salicylates < 1 L 11/02/18 09:42: Sodium 134, Chloride 96 L, Potassium 4.7, Carbon Dioxide 23, Anion Gap 20, BUN 13, Creatinine 0.6 L, Est GFR ( Amer) > 60, Est GFR (Non-Af Amer) > 60, Random Glucose 72, Calcium 9.8, Magnesium 1.8, Total Bilirubin 0.8, AST 35, ALT 32, Alkaline Phosphatase 98, Troponin I < 0.01, Total Protein 8.3, Albumin 4.6, Globulin 3.7, Albumin/Globulin Ratio 1.2, Lipase 40 11/02/18 09:42: pO2 41, VBG pH 7.31 L, VBG pCO2 44.0, VBG HCO3 22.2, VBG Total CO2 23.6, VBG O2 Sat (Calc) 78.4 H, VBG Base Excess -4.1 L, VBG Potassium 4.0, Sodium 132.0, Chloride 95.0 L, Glucose 72, Lactate 2.0, FiO2 21.0, Venous Blood Potassium 4.0 11/02/18 09:42: Urine Color Yellow, Urine Appearance Clear, Urine pH 6.0, Ur Specific [place] 1.020, Urine Protein Negative, Urine Glucose (UA) Negative, Urine Ketones >=80, Urine Blood Trace-intact H, Urine Nitrate Negative, Urine Bilirubin Negative, Urine Urobilinogen 0.2, Ur Leukocyte Esterase Negative, Urine RBC 1 - 3 H, Urine WBC 0 - 2, Ur Epithelial Cells 1 - 3, Urine Bacteria Few 11/02/18 09:42: PT 11.3, INR 0.98, APTT 27.8 11/02/18 09:42: WBC 7.9, RBC 4.24, Hgb 12.3, Hct 37.1, MCV 87.5, MCH 29.0, MCHC 33.2, RDW 14.7 H, Plt Count 341, MPV 9.2, Gran % 64.8, Lymph % (Auto) 24.6, [place] % (Auto) 9.6 H, Eos % (Auto) 0.1 L, Baso % (Auto) 0.9, Gran # 5.09, Lymph # (Auto) 1.9, [place] # (Auto) 0.8 H, Eos # (Auto) 0.0, Baso # (Auto) 0.07 Vital Signs Temp Pulse Pulse Resp BP Pulse Ox 11/04/18 09:29 81 17 122/93 H 11/04/18 08:40 92 H 142/105 H 11/04/18 08:38 92 H 142/105 H 11/04/18 07:08 98.5 F 92 H 20 142/105 H 11/04/18 07:05 98.5 F 92 H 20 142/105 H 11/03/18 16:00 81 123/89 11/03/18 09:48 89 153/102 H 11/03/18 07:34 98.6 F 89 22 153/102 H 11/02/18 18:48 94 H 18 11/02/18 15:23 97.9 F 84 18 124/75 99 11/02/18 15:21 97.9 F 84 18 124/75 99 11/02/18 11:41 93 H 18 122/79 97 11/02/18 08:48 98.7 F 92 H 18 135/88 99 DSM 5 Symptoms Update: shortly, pt is 58 year old female, self reported h/o depression and anxiety, one previous psychiatric admission, 2 previous suicidal attempts, first 1 was at age of 18 patient overdosed on alcohol and pills, patient was admitted to ICU for 7 days then stayed in to the psychiatric inpatient unit for 3 weeks, second suicidal attempt was about 7 years ago, patient overdosed on pills, jason maya reported lives in [place], came to [place] visiting her family, patient is not sure how she ended up in [place], patient reported that she called 911 because she was feeling depressed and anxious. In the emergency room patient was initially complaining of abdominal pain, nausea, vomiting, patient also reported that she is depressed that is why psychiatric services were involved. Patient was admitted for evaluation and stabilization of depressive symptoms, anxiety, possible suicidal ideation with a plan to shotgun, patient denied access to any guns. Patient was seen and examined today in her room, patient presented with acceptable personal hygiene, good ADLs, patient looks much older than her chronological age, has deep wrinkles in her face, uncombed hair. pt reported that she feels "the same depressed, i wish to be ..." pt reported that she has low energy, hopelessness and helplessness. as per staff pt is self isolating no psychosis, no agitation pt has good appetite pt tolerates meds well, no side effects observed or reported, AIMS 0, no EPS this pattern chart writer asked pt about pharmacy, pt said that it was "mail in orders" Impression: r/o MDD r/o DAVID Medication Change: Yes Medical Record Reviewed: Yes Consults ordered or reviewed: medical and GI consults called Mental Status Examination - Cognitive Function Orientation: Person, Place, Situation, Time Memory: Impaired Attention: Poor Concentration: Poor Association: Loose Fund of Knowledge: Poor - Mood Mood: Depressed, Anxious - Affect Affect: Constricted, Flat - Formal Thought Process Formal Thought Process: No Impairment - Suicidal Ideation Suicidal Ideation: Yes Plan: "I wish to be ' - Homicidal Ideation Homicidal Ideation: No Goal/Treatment Plan - Goal/Treatment Plan Need for Continued Stay: Remain at risks for inpatient hospitalization, Severe depression anxiety, Discharge may exacerbated symptoms, Severe functional impairment Progress Toward Problem(s) and Goals/Treatment Plan: Milieu/structure/supportive therapy Medical consult appreciated, see medical team note for more detailed info SW consultation for discharge plan and social issues Med management As per patient she was feeling medication in [facility] [phone], but as per record patient never filled any medication there As per patient she was on Zyprexa, Prozac, Remeron which were "not effective" We will start Zoloft, as needed medication for sleep, will consider Seroquel Family involvement Follow up on labs Will monitor closely Pt was educated about risk/benefits and alternatives of medications, coping strategies (safety plan, suicide prevention), relapse prevention, importance of follow up with psychiatrist and therapist, stay away from drugs/alcohol/smoking Estimated Date of D/C: 11/11/18
[2018-11-04] MEDS: Alum-Mag Hydrox-Simethicone Susp (30 mL) PO PRN (18:58)
[2018-11-05] MEDS: Metoprolol Succinate 50 mg XL Tab PO SCH (09:37)
[2018-11-05] MEDS: Pantoprazole 40 mg EC Tab PO SCH (09:39)
--- NOTE | 2018-11-05 10:00 | PN ---
DATE: 11/05/2018 LOCATION: The patient is in the [facility] Unit, room 517, bed 1. SUBJECTIVE: The patient was admitted with depression. The patient has history of chronic lung disease, coronary artery disease, cerebrovascular disease, hypertension, and hyperlipidemia. The patient is seen this morning. She is able to ambulate. She seemed to be without distress. PHYSICAL EXAMINATION: VITAL SIGNS: The patient's pulse is 81, blood pressure 122/85, and respirations are 20. HEENT: The patient's head is normocephalic. LUNGS: Trachea is central. Breath sounds vesicular. No adventitious sounds. HEART: Normal sinus rhythm. S1 and S2 present. ABDOMEN: Soft. Liver and spleen not palpable. The patient has also abdominal pain and possible cholelithiasis. CENTRAL NERVOUS SYSTEM: The patient does not have any focal neurological deficits even though she has history of 2 episodes of stroke. MEDICATIONS: The patient's list of medications consists of aspirin 81 mg daily. The patient is on Ativan, Geodon p.r.n. The patient is on Lipitor 10 mg daily, Lyrica 50 mg daily. The patient is also getting nicotine patch for withdrawal from cigarette. The patient is on amlodipine 5 mg daily, Plavix 75 mg daily, and pantoprazole 40 mg daily. LABORATORY DATA: The patient's report regarding the abdominal ultrasound; the thickening of the gallbladder wall, but there is no stones in the gallbladder or in the common duct. The patient has no signs of acute cholecystitis. The patient's plain chest x-ray is clinically clear. PLAN: She will continue current management with all the medications and we will follow up medically. Jose Alfredo Bolanos MD GEO
--- NOTE | 2018-11-05 11:55 | CP.PCM.PN ---
Subjective - Date & Time of Evaluation Date of Evaluation: 11/05/18 Time of Evaluation: 11:51 - Subjective Subjective: GI Progress Note for Dr. Cho Patient seen and examined at bedside. No acute overnight events. Patient states that abdominal pain is not any worse and she tries to eat smaller meals to avoid the pain. Patient denies CP, SOB, n/v/d, fever, chills, HERNANDEZ, or dizziness. Objective - Vital Signs/Intake and Output Vital Signs (last 24 hours): Temp Pulse Resp BP Pulse Ox 98.1 F 81 20 122/85 99 11/05/18 07:19 11/05/18 09:38 11/05/18 07:19 11/05/18 09:38 11/02/18 15:23 - Medications Medications: Current Medications Acetaminophen (Tylenol 325mg Tab) 650 mg PO Q6H PRN PRN Reason: Pain, moderate (4-7) Last Admin: 11/04/18 06:44 Dose: 650 mg Al Hydrox/Mg Hydrox/Simethicone (Maalox Plus 30 Ml) 30 ml PO DAILY PRN PRN Reason: Indigestion / Heartburn Last Admin: 11/04/18 18:58 Dose: 30 ml Amlodipine Besylate (Norvasc) 5 mg PO DAILY [facility] Last Admin: 11/05/18 09:38 Dose: 5 mg Aspirin (Aspirin Chewable) 81 mg PO DAILY [facility] Last Admin: 11/05/18 09:29 Dose: Not Given Atorvastatin Calcium (Lipitor) 10 mg PO DIN [facility] Last Admin: 11/04/18 17:37 Dose: 10 mg Clopidogrel Bisulfate (Plavix) 75 mg PO DAILY [facility] Last Admin: 11/05/18 09:38 Dose: 75 mg Lorazepam (Ativan) 1 mg PO Q6 PRN; Protocol PRN Reason: Anxiety Last Admin: 11/05/18 09:39 Dose: 1 mg Lorazepam (Ativan) 1 mg IM Q6H PRN; Protocol PRN Reason: Anxiety Magnesium Hydroxide (Milk Of Magnesia) 30 ml PO DAILY PRN PRN Reason: Constipation Metoprolol Succinate (Toprol Xl) 50 mg PO BRK [facility] Last Admin: 11/05/18 09:37 Dose: 50 mg Nicotine (Nicoderm Cq) 1 patch TD DAILY [facility] Last Admin: 11/05/18 09:37 Dose: 1 patch Pantoprazole Sodium (Protonix Ec Tab) 40 mg PO DAILY [facility] Last Admin: 11/05/18 09:39 Dose: 40 mg Pregabalin (Lyrica) 50 mg PO TID [facility] Last Admin: 11/05/18 09:38 Dose: 50 mg Sertraline HCl (Zoloft) 50 mg PO DAILY [facility] Last Admin: 11/05/18 09:39 Dose: 50 mg Zaleplon (Sonata) 5 mg PO HS PRN PRN Reason: Insomnia Last Admin: 11/04/18 22:49 Dose: 5 mg Ziprasidone (Geodon Cap) 20 mg PO Q6 PRN; Protocol PRN Reason: Agitation Ziprasidone (Geodon Inj) 20 mg IM Q6 PRN; Protocol PRN Reason: Agitation - Labs Labs: 11/02/18 09:42 11/02/18 09:42 PT 11.3 SECONDS (9.4-12.5) 11/02/18 09:42 INR 0.98 11/02/18 09:42 APTT 27.8 Seconds (25.1-36.5) 11/02/18 09:42 - Constitutional Appears: No Acute Distress - Head Exam Head Exam: NORMAL INSPECTION - Eye Exam Eye Exam: EOMI, Normal appearance - ENT Exam ENT Exam: Mucous Membranes Moist, Normal Exam - Respiratory Exam Respiratory Exam: Clear to Ausculation Bilateral. absent: Rales, Rhonchi, Wheezes - Cardiovascular Exam Cardiovascular Exam: RRR, +S1, +S2. absent: Gallop, Rubs, Murmur - GI/Abdominal Exam GI & Abdominal Exam: Soft, Tenderness (RUQ). absent: Distended, Rigid, Rebound - Extremities Exam Extremities Exam: Normal Inspection - Back Exam Back Exam: NORMAL INSPECTION - Neurological Exam Neurological Exam: Alert, Awake, Oriented x3 - Psychiatric Exam Psychiatric exam: Normal Affect, Normal Mood - Skin Skin Exam: Dry, Intact, Normal Color, Warm Assessment and Plan - Assessment and Plan (Free Text) Assessment: Patient is a 58 F with PMH of PUD, COPD, CT is admitted to psychiatry for depression. GI consulted for abdominal pain. Abdominal ultrasound shows no signs of acute cholecystitis. LFT's unremarkable, no signs of cholestasis. Prior records obtained from admission in 08/2017, which showed biliary sludge and gallstones on imaging. EGD was done at that time which revealed esophagitis and gastritis. Biopsies revealed normal gastric mucosa and mild reflux esophagitis. 1. Abdominal Pain likely biliary colic 2. Depression Plan: - Abdomen/Pelvis CT with PO and IV contrast negative - Will trial Ursodiol for 2 months - Recommend GI outpatient follow up - Surgery consulted - no surgical intervention at this time Patient seen and discussed in detail with Dr. Cho. Frank Paul DO PGY2
--- NOTE | 2018-11-05 16:43 | PCM.PYCHPN ---
Psychiatric Progress Note - Psychiatric Progress Note Patient seen today, length of contact: 30min Patient Chief Complaint: "I feel very depressed, I feel my memory is getting worse, may I see n eurologist?" Problems Identified/Issues Discussed: Suicide/ homicide prevention, past psychiatric h/o, current psychiatric symptoms, medical problems, risk/benefits and alternatives of medications, medications compliance, coping strategies, substance abuse h/o, relapse prevention, importance of follow up with psychiatrist and therapist, discharge plan. Medical Problems: 11/02/18 09:42 11/02/18 09:42 Lab Results 11/02/18 12:11: Urine Opiates Screen Negative, Urine Methadone Screen Negative, Ur Barbiturates Screen Negative, Ur Phencyclidine Scrn Negative, Ur Amphetamines Screen Negative, U Benzodiazepines Scrn Negative, U Oth Cocaine Metabols Negative, U Cannabinoids Screen Negative 11/02/18 09:42: Free T4 0.85, TSH 3rd Generation 1.19, Alcohol, Quantitative < 10 11/02/18 09:42: Salicylates < 1 L 11/02/18 09:42: Sodium 134, Chloride 96 L, Potassium 4.7, Carbon Dioxide 23, Anion Gap 20, BUN 13, Creatinine 0.6 L, Est GFR ( Amer) > 60, Est GFR (Non-Af Amer) > 60, Random Glucose 72, Calcium 9.8, Magnesium 1.8, Total Bilirubin 0.8, AST 35, ALT 32, Alkaline Phosphatase 98, Troponin I < 0.01, Total Protein 8.3, Albumin 4.6, Globulin 3.7, Albumin/Globulin Ratio 1.2, Lipase 40 11/02/18 09:42: pO2 41, VBG pH 7.31 L, VBG pCO2 44.0, VBG HCO3 22.2, VBG Total CO2 23.6, VBG O2 Sat (Calc) 78.4 H, VBG Base Excess -4.1 L, VBG Potassium 4.0, Sodium 132.0, Chloride 95.0 L, Glucose 72, Lactate 2.0, FiO2 21.0, Venous Blood Potassium 4.0 11/02/18 09:42: Urine Color Yellow, Urine Appearance Clear, Urine pH 6.0, Ur Specific [place] 1.020, Urine Protein Negative, Urine Glucose (UA) Negative, Urine Ketones >=80, Urine Blood Trace-intact H, Urine Nitrate Negative, Urine Bilirubin Negative, Urine Urobilinogen 0.2, Ur Leukocyte Esterase Negative, Urine RBC 1 - 3 H, Urine WBC 0 - 2, Ur Epithelial Cells 1 - 3, Urine Bacteria Few 11/02/18 09:42: PT 11.3, INR 0.98, APTT 27.8 11/02/18 09:42: WBC 7.9, RBC 4.24, Hgb 12.3, Hct 37.1, MCV 87.5, MCH 29.0, MCHC 33.2, RDW 14.7 H, Plt Count 341, MPV 9.2, Gran % 64.8, Lymph % (Auto) 24.6, [place] % (Auto) 9.6 H, Eos % (Auto) 0.1 L, Baso % (Auto) 0.9, Gran # 5.09, Lymph # (Auto) 1.9, [place] # (Auto) 0.8 H, Eos # (Auto) 0.0, Baso # (Auto) 0.07 Vital Signs Temp Pulse Pulse Resp BP Pulse Ox 11/04/18 09:29 81 17 122/93 H 11/04/18 08:40 92 H 142/105 H 11/04/18 08:38 92 H 142/105 H 11/04/18 07:08 98.5 F 92 H 20 142/105 H 11/04/18 07:05 98.5 F 92 H 20 142/105 H 11/03/18 16:00 81 123/89 11/03/18 09:48 89 153/102 H 11/03/18 07:34 98.6 F 89 22 153/102 H 11/02/18 18:48 94 H 18 11/02/18 15:23 97.9 F 84 18 124/75 99 11/02/18 15:21 97.9 F 84 18 124/75 99 11/02/18 11:41 93 H 18 122/79 97 11/02/18 08:48 98.7 F 92 H 18 135/88 99 Diagnostic Results: Patient was seen by medical team as well as neurology team Discussed with Dr. Thompson B12 level was ordered, TSH and free T4 is down, CT scan of the head with no contrast DSM 5 Symptoms Update: shortly, pt is 58 year old female, self reported h/o depression and anxiety, one previous psychiatric admission, 2 previous suicidal attempts, first 1 was at age of 18 patient overdosed on alcohol and pills, patient was admitted to ICU for 7 days then stayed in to the psychiatric inpatient unit for 3 weeks, second suicidal attempt was about 7 years ago, patient overdosed on pills, patient reported lives in [place], came to [place] visiting her family, patient is not sure how she ended up in [place], patient reported that she called 911 because she was feeling depressed and anxious. In the emergency room patient was initially complaining of abdominal pain, nausea, vomiting, patient also reported that she is depressed that is why psychiatric services were involved. Patient was admitted for evaluation and stabilization of depressive symptoms, anxiety, possible suicidal ideation with a plan to shotgun, patient denied access to any guns. Patient was seen and examined today at the treatment team meeting room, patient presented with acceptable personal hygiene, good ADLs, patient looks much older than her chronological age, has deep wrinkles in her face, uncombed hair. pt reported that she feels "the same depressed, i wish to be ..." Patient complained that her memory issues are "getting worse", patient reported that she was on Aricept in the past, neurology team was contacted, as per Dr. Thompson no Aricept needed as of now, they will follow up on vitamin B12 level, CT scan of the head with no contrast could be done next week. pt reported that she has low energy, hopelessness and helplessness. as per staff pt is self isolating no psychosis, no agitation pt has good appetite pt tolerates meds well, no side effects observed or reported, AIMS 0, no EPS As per long term care social worker patient is providing inconsistent stories today patient said that she was in boarding home, then she was in a group home, during the treatment team meeting patient said that she was living with her mother. This law writer would like to r/o dementia vs malingering, vs pseudodementia. Impression: r/o MDD r/o DAVID Medication Change: Yes (Vistaril added) Medical Record Reviewed: Yes Consults ordered or reviewed: medical and GI consults called Neurology consult appreciated Mental Status Examination - Cognitive Function Orientation: Person, Place, Situation, Time Memory: Impaired Attention: Poor Concentration: Poor Association: Loose Fund of Knowledge: Poor - Mood Mood: Depressed, Anxious - Affect Affect: Constricted, Flat - Formal Thought Process Formal Thought Process: No Impairment - Suicidal Ideation Suicidal Ideation: No Plan: Denied today - Homicidal Ideation Homicidal Ideation: No Goal/Treatment Plan - Goal/Treatment Plan Need for Continued Stay: Remain at risks for inpatient hospitalization, Severe depression anxiety, Discharge may exacerbated symptoms, Severe functional impairment Progress Toward Problem(s) and Goals/Treatment Plan: Milieu/structure/supportive therapy Medical consult appreciated, see medical team note for more detailed info SW consultation for discharge plan and social issues Med management As per patient she was feeling medication in [place] [facility] [phone], but as per record patient never filled any medication there Medical record was obtained from an [facility] medications reviewed Vistaril 100 mg 3 times a day Remeron 15 mg at the nighttime Lyrica 50 mg 3 times a day Trazodone 100 mg at the nighttime There are no other medications such as Zyprexa, Prozac, more over patient reported all of the medications were "not effective" Zoloft was started 50 mg daily for depression and anxiety Vistaril resumed 50 mg 3 times a day as needed for anxiety Sonata as needed 10 mg at the nighttime for insomnia Family involvement Follow up on labs Will monitor closely Pt was educated about risk/benefits and alternatives of medications, coping strategies (safety plan, suicide prevention), relapse prevention, importance of follow up with psychiatrist and therapist, stay away from drugs/alcohol/smoking Estimated Date of D/C: 11/11/18
--- NOTE | 2018-11-05 17:51 | CON ---
DATE: 11/05/2018 NEUROLOGY CONSULT CHIEF COMPLAINT: Evaluate for dementia. HISTORY OF PRESENT ILLNESS: This is a 58-year-old woman with history of peptic ulcer disease, COPD, [place], admitted to Psychiatry Department for worsening depression, on psychiatric medications in terms of Zoloft, Lyrica. Currently, she was called today for underlying dementia. She has poor attention span, slow thought process, but recall after 5 minutes is 2/3. She can draw the clocks. She can do calculations. She can spell word [place] backwards and can write full sentences without any difficulties. She was on Aricept in the past thinking that she had complete dementia, but she seems that she has very mild cognitive impairment even less than that. No focal weakness and she is moving all extremities equally. Gait is normal. PAST MEDICAL HISTORY: As above. FAMILY HISTORY: Noncontributory. SOCIAL HISTORY: No illicit drug use, smoking or EtOH abuse. ALLERGIES: NOTED TO CHOCOLATE FLAVOR AND PEANUT. MEDICATIONS: Reviewed by nurse's reconciliation sheet. PHYSICAL EXAMINATION: GENERAL: The patient is seen up in bed, in no acute distress. VITAL SIGNS: Temperature of 98.1, pulse rate of 81, blood pressure 122/85, respiratory rate 20, oxygen saturation 99% on room air. HEENT: Atraumatic, normocephalic. PERRLA. Extraocular muscles intact. NECK: Supple. No JVD. No adenopathy noted. LUNGS: Clear to auscultation. No adventitious sounds. HEART: S1 and S2. Normal rate and rhythm. No murmurs, rubs or gallops. ABDOMEN: Soft, nontender, nondistended. Bowel sounds present. EXTREMITIES: No clubbing, no cyanosis. Peripheral pulses are 2+ felt bilaterally. NEUROLOGIC: The patient is alert and oriented to person, place, month and year. Speech is fluent without any errors. Cranial nerves II through XII are intact. Has a flat affect and mildly anxious. Motor: Moves all extremities equally. Toes downgoing bilaterally. Sensory: Light touch, pinprick, proprioception and vibration are intact. DTRs are 2+ throughout. Coordination: [id number] is intact. No dysmetria noted. Gait is normal. Romberg negative. LABORATORY DATA: Sodium is 134, potassium 4.7, chloride 96, carbon dioxide 23, BUN of 13, creatinine 0.6, random glucose 72. IMPRESSION: I feel that she has severe dementia and depression with very mild cognitive impairment in terms of attention span slowing and thought process slowing, but not full-blown dementia. RECOMMENDATIONS: At this time, we recommend: 1. Attention and concentration exercise. 2. B2 level, thyroid function test. 3. We can followup with me in the neurologic office for further cognitive exam for underlying dementia. At this time, continue with current and present psychiatric management. Thank you for this consult. Arie Thompson MD
[2018-11-06] MEDS: Pantoprazole 40 mg EC Tab PO SCH (08:29)
[2018-11-06] MEDS: Metoprolol Succinate 50 mg XL Tab PO SCH (08:30)
[2018-11-06] MEDS: Alum-Mag Hydrox-Simethicone Susp (30 mL) PO PRN (08:32)
--- NOTE | 2018-11-06 09:45 | PN ---
DATE: 11/06/2018 SUBJECTIVE: The patient is in [facility], Behavioral Care Unit. THE PATIENT IS ALLERGIC TO CHOCOLATE AND PEANUT. The patient complains of constipation this morning. She was admitted with depression. She has history of chronic lung disease, history of cholelithiasis. The patient also has history of coronary artery disease and cerebrovascular disease, reflux esophagitis, nicotine addiction and smoker. PHYSICAL EXAMINATION: VITAL SIGNS: This morning, she is ambulating. The pulse is 80, blood pressure 120/80 and respirations are 20. HEENT: The patient's head is normocephalic. LUNGS: Clear clinically. HEART: Normal sinus rhythm. S1 and S2, present. ABDOMEN: Soft. Liver and spleen not palpable. No tenderness. No masses. CENTRAL NERVOUS SYSTEM: The patient has no focal neurological deficits. MEDICATIONS: The patient's medications will be Actigall 300 mg p.o. b.i.d. The patient does not show any stones in the gallbladder at this time, probably it resolved with the use of Actigall. The patient also taking aspirin 81 mg daily, Lipitor 10 mg daily. The patient is on Ativan, Lyrica, Geodon. These are medications for her mental state. She is on heart healthy diet. We will prescribe milk of magnesia and Colace two times a day for her constipation. Jose Alfredo Bolanos MD MTDAlex
--- NOTE | 2018-11-06 10:04 | PCM.PYCHPN ---
Psychiatric Progress Note - Psychiatric Progress Note Patient seen today, length of contact: 30min Problems Identified/Issues Discussed: I reviewed assessment and recent notes. Grooming is adequate and patient is oriented x3. She is pleasant and communicative. Reports that she is feeling much better and "slept fantastic". Feels her mood is stable and anxiety is "always there" but not overwhelming at this time. She denies any AVH. Patient tolerates meds well, no side effects observed or reported, AIMS 0, no EPS Patient has been visible on the unit and engages in activities. She can be friendly and social. There were no behavioral issues overnight. Diagnostic Results: r/o MDD r/o DAVID Medication Change: No ( ) Medical Record Reviewed: Yes Mental Status Examination - Cognitive Function Orientation: Person, Place, Situation, Time Memory: Impaired Attention: Poor Concentration: Poor Association: Loose Fund of Knowledge: Poor - Mood Mood: Depressed (better), Anxious - Affect Affect: Constricted, Flat - Speech Speech: Appropriate - Formal Thought Process Formal Thought Process: No Impairment - Suicidal Ideation Suicidal Ideation: No - Homicidal Ideation Homicidal Ideation: No Goal/Treatment Plan - Goal/Treatment Plan Need for Continued Stay: Remain at risks for inpatient hospitalization, Severe depression anxiety, Discharge may exacerbated symptoms, Severe functional impairment Progress Toward Problem(s) and Goals/Treatment Plan: * c/w current tx and plan * No new weekend lab results thus far * Vitals reviewed and noted below: Selected Entries 11/06/18 07:25 Temperature 97.9 F Pulse Rate 81 Respiratory 20 Rate Blood Pressure 118/80 Estimated Date of D/C: 11/11/18
--- NOTE | 2018-11-07 09:32 | PN ---
DATE: 11/07/2018 LOCATION: The patient is in [facility], Behavioral Care Unit. The patient is in room 514, bed 1. SUBJECTIVE: The patient is seen this morning. She still complaints of gas and constipation. She also complaints of abdominal discomfort. Past history is significant that she has history of cholelithiasis. The patient has history of cerebrovascular disease, coronary artery disease and hypothyroidism. The patient also has history of nicotine addiction, cigarette smoking, gastritis and hypertension. The patient seen this morning, sitting in the solarium. PHYSICAL EXAMINATION VITAL SIGNS: The patient's pulse is 72, blood pressure 130/90 and respirations are 20. HEENT: The patient's head is normocephalic. LUNGS: Trachea is central. Breath sounds vesicular. No adventitious sounds. HEART: Normal sinus rhythm. S1 and S2 present. No murmurs. ABDOMEN: Soft. Liver and spleen not palpable. No tenderness. Distention is noted. No localizing signs. CENTRAL NERVOUS SYSTEM: The patient is in normal range even though the patient has had past history of 2 strokes there is no residual weakness noted at this time. LABORATORY DATA: The patient's blood work remains the same. MEDICATIONS: The patient is on aspirin 81 mg daily. The patient is on Actigall 300 mg b.i.d. The patient is on Ativan 1 mg every 6 hours p.r.n. The patient is on Geodon 20 mg every 6 hours p.r.n. and Lipitor 10 mg daily. The patient is on Lyrica 50 mg t.i.d., nicotine patch for withdrawal from cigarettes, Plavix 75 mg daily, amlodipine 5 mg daily, pantoprazole 40 mg daily. The patient is on heart healthy diet and she also gets Sonata 10 mg at nighttime for sleep and metoprolol 50 mg daily also for coronary artery disease and hypertension. ASSESSMENT AND PLAN: The patient's condition seems to be improving. We will continue current medical management. Followup in the unit. Jose Alfredo Bolanos MD GEO
[2018-11-07] MEDS: Pantoprazole 40 mg EC Tab PO SCH (10:00)
[2018-11-07] MEDS: Metoprolol Succinate 50 mg XL Tab PO SCH (10:03)
--- NOTE | 2018-11-07 10:09 | PCM.PYCHPN ---
Psychiatric Progress Note - Psychiatric Progress Note Patient seen today, length of contact: 30min Problems Identified/Issues Discussed: I reviewed recent notes and met with patient in the dayroom. She appears more unkempt today. Remains oriented x3. She generally remains pleasant and communi cative. Reports that she is feeling much better and slept well again. Feels her mood is stable and anxiety is "always there" but not overwhelming at this time. Patient report having vague suicidal thoughts to staff on Thursday. She denies having these thoughts today. She also denies any AVH. Patient tolerates meds well, no side effects observed or reported. Patient has been visible on the unit and engages in some activities. She can be friendly and social. There were no behavioral issues over the weekend. Diagnostic Results: r/o MDD r/o DAVID Medication Change: No ( ) Medical Record Reviewed: Yes Mental Status Examination - Cognitive Function Orientation: Person, Place, Situation, Time Memory: Impaired Attention: Poor Concentration: Poor Association: Loose Fund of Knowledge: Poor - Mood Mood: Depressed (better), Anxious - Affect Affect: Constricted, Flat - Speech Speech: Appropriate - Formal Thought Process Formal Thought Process: No Impairment - Suicidal Ideation Suicidal Ideation: No - Homicidal Ideation Homicidal Ideation: No Goal/Treatment Plan - Goal/Treatment Plan Need for Continued Stay: Remain at risks for inpatient hospitalization, Severe depression anxiety, Discharge may exacerbated symptoms, Severe functional impairment Progress Toward Problem(s) and Goals/Treatment Plan: * c/w current tx and plan * Appreciate f/u by Dr. Bolanos on 11/06/18 and 11/07/18~provided MOM 30 ml and increased colace to TID due to complaints of constipation * Vitals reviewed and noted below: 11/07/18 11/07/18 07:00 09:56 Temperature 97.9 F Pulse Rate 73 81 Respiratory 20 Rate Blood Pressure 129/90 112/71 * New weekend labs noted below: 11/06/18 07:00 Vitamin B12 526 Estimated Date of D/C: 11/11/18
[2018-11-08] MEDS: Pantoprazole 40 mg EC Tab PO SCH (07:02)
--- NOTE | 2018-11-08 08:28 | CP.PCM.PN ---
Subjective - Date & Time of Evaluation Date of Evaluation: 11/08/18 Time of Evaluation: 07:45 - Subjective Subjective: Patient is seen this morning. She says she had a bowel movement. Objective - Vital Signs/Intake and Output Vital Signs (last 24 hours): Temp Pulse Resp BP Pulse Ox 97.6 F 76 20 134/91 H 99 11/08/18 07:00 11/08/18 07:00 11/08/18 07:00 11/08/18 07:00 11/02/18 15:23 - Medications Medications: Current Medications Acetaminophen (Tylenol 325mg Tab) 650 mg PO Q6H PRN PRN Reason: Pain, moderate (4-7) Last Admin: 11/05/18 15:41 Dose: 650 mg Al Hydrox/Mg Hydrox/Simethicone (Maalox Plus 30 Ml) 30 ml PO DAILY PRN PRN Reason: Indigestion / Heartburn Last Admin: 11/06/18 08:32 Dose: 30 ml Amlodipine Besylate (Norvasc) 5 mg PO DAILY [facility] Last Admin: 11/07/18 09:56 Dose: 5 mg Aspirin (Aspirin Chewable) 81 mg PO DAILY [facility] Last Admin: 11/07/18 10:00 Dose: 81 mg Atorvastatin Calcium (Lipitor) 10 mg PO DIN [facility] Last Admin: 11/07/18 16:22 Dose: 10 mg Clopidogrel Bisulfate (Plavix) 75 mg PO DAILY [facility] Last Admin: 11/07/18 09:55 Dose: 75 mg Docusate Sodium (Colace) 100 mg PO BID [facility] Last Admin: 11/07/18 16:22 Dose: 100 mg Hydroxyzine Pamoate (Vistaril) 50 mg PO Q8 PRN; Protocol PRN Reason: Anxiety Last Admin: 11/07/18 10:49 Dose: 50 mg Lorazepam (Ativan) 1 mg PO Q6 PRN; Protocol PRN Reason: Anxiety Last Admin: 11/08/18 07:03 Dose: 1 mg Lorazepam (Ativan) 1 mg IM Q6H PRN; Protocol PRN Reason: Anxiety Magnesium Hydroxide (Milk Of Magnesia) 30 ml PO DAILY PRN PRN Reason: Constipation Metoprolol Succinate (Toprol Xl) 50 mg PO BRK [facility] Last Admin: 11/07/18 10:03 Dose: 50 mg Nicotine (Nicoderm Cq) 1 patch TD DAILY [facility] Last Admin: 11/07/18 09:55 Dose: 1 patch Pantoprazole Sodium (Protonix Ec Tab) 40 mg PO DAILY [facility] Last Admin: 11/08/18 07:02 Dose: 40 mg Pregabalin (Lyrica) 50 mg PO TID [facility] Last Admin: 11/07/18 18:03 Dose: 50 mg Sertraline HCl (Zoloft) 75 mg PO DAILY [facility] Last Admin: 11/07/18 09:56 Dose: 75 mg Ursodiol (Actigall) 300 mg PO BID [facility] Last Admin: 11/07/18 16:22 Dose: 300 mg Zaleplon (Sonata) 10 mg PO HS PRN PRN Reason: Insomnia Last Admin: 11/08/18 00:30 Dose: 10 mg Ziprasidone (Geodon Cap) 20 mg PO Q6 PRN; Protocol PRN Reason: Agitation Last Admin: 11/07/18 10:48 Dose: 20 mg Ziprasidone (Geodon Inj) 20 mg IM Q6 PRN; Protocol PRN Reason: Agitation - Labs Labs: 11/02/18 09:42 11/02/18 09:42 PT 11.3 SECONDS (9.4-12.5) 11/02/18 09:42 INR 0.98 11/02/18 09:42 APTT 27.8 Seconds (25.1-36.5) 11/02/18 09:42 - Constitutional Appears: No Acute Distress - Head Exam Head Exam: ATRAUMATIC, NORMOCEPHALIC - Respiratory Exam Respiratory Exam: Clear to Ausculation Bilateral, NORMAL BREATHING PATTERN - Cardiovascular Exam Cardiovascular Exam: REGULAR RHYTHM, +S1, +S2 - GI/Abdominal Exam GI & Abdominal Exam: Soft, Normal Bowel Sounds. absent: Tenderness - Extremities Exam Extremities Exam: Normal Inspection - Neurological Exam Neurological Exam: Alert, Awake Assessment and Plan - Assessment and Plan (Free Text) Assessment: Constipation HTN HLP H/O CVA CAD Plan: Patient says she had a bowel movement yesterday. continue current medications continue colace twice a day; continue milk of magnesia as needed for constipation
[2018-11-08] MEDS: Metoprolol Succinate 50 mg XL Tab PO SCH (09:23)
--- NOTE | 2018-11-08 16:09 | PCM.PYCHPN ---
Psychiatric Progress Note - Psychiatric Progress Note Patient seen today, length of contact: 30min Patient Chief Complaint: "I don't know, I feel depress and anxious, the same..." Problems Identified/Issues Discussed: Suicide/ homicide prevention, past psychiatric h/o, current psychiatric symptoms, medical problems, risk/benefits and alternatives of medications, medications compliance, coping strategies, substance abuse h/o, relapse prevention, importance of follow up with psychiatrist and therapist, discharge plan. Medical Problems: 11/02/18 09:42 11/02/18 09:42 Lab Results 11/02/18 12:11: Urine Opiates Screen Negative, Urine Methadone Screen Negative, Ur Barbiturates Screen Negative, Ur Phencyclidine Scrn Negative, Ur Amphetamines Screen Negative, U Benzodiazepines Scrn Negative, U Oth Cocaine Metabols Negative, U Cannabinoids Screen Negative 11/02/18 09:42: Free T4 0.85, TSH 3rd Generation 1.19, Alcohol, Quantitative < 10 11/02/18 09:42: Salicylates < 1 L 11/02/18 09:42: Sodium 134, Chloride 96 L, Potassium 4.7, Carbon Dioxide 23, Anion Gap 20, BUN 13, Creatinine 0.6 L, Est GFR ( Amer) > 60, Est GFR (Non-Af Amer) > 60, Random Glucose 72, Calcium 9.8, Magnesium 1.8, Total Bilirubin 0.8, AST 35, ALT 32, Alkaline Phosphatase 98, Troponin I < 0.01, Total Protein 8.3, Albumin 4.6, Globulin 3.7, Albumin/Globulin Ratio 1.2, Lipase 40 11/02/18 09:42: pO2 41, VBG pH 7.31 L, VBG pCO2 44.0, VBG HCO3 22.2, VBG Total CO2 23.6, VBG O2 Sat (Calc) 78.4 H, VBG Base Excess -4.1 L, VBG Potassium 4.0, Sodium 132.0, Chloride 95.0 L, Glucose 72, Lactate 2.0, FiO2 21.0, Venous Blood Potassium 4.0 11/02/18 09:42: Urine Color Yellow, Urine Appearance Clear, Urine pH 6.0, Ur Spe cific [place] 1.020, Urine Protein Negative, Urine Glucose (UA) Negative, Urine Ketones >=80, Urine Blood Trace-intact H, Urine Nitrate Negative, Urine Bilirubin Negative, Urine Urobilinogen 0.2, Ur Leukocyte Esterase Negative, Urine RBC 1 - 3 H, Urine WBC 0 - 2, Ur Epithelial Cells 1 - 3, Urine Bacteria Few 11/02/18 09:42: PT 11.3, INR 0.98, APTT 27.8 11/02/18 09:42: WBC 7.9, RBC 4.24, Hgb 12.3, Hct 37.1, MCV 87.5, MCH 29.0, MCHC 33.2, RDW 14.7 H, Plt Count 341, MPV 9.2, Gran % 64.8, Lymph % (Auto) 24.6, [place] % (Auto) 9.6 H, Eos % (Auto) 0.1 L, Baso % (Auto) 0.9, Gran # 5.09, Lymph # (Auto) 1.9, [place] # (Auto) 0.8 H, Eos # (Auto) 0.0, Baso # (Auto) 0.07 Vital Signs Temp Pulse Pulse Resp BP Pulse Ox 11/04/18 09:29 81 17 122/93 H 11/04/18 08:40 92 H 142/105 H 11/04/18 08:38 92 H 142/105 H 11/04/18 07:08 98.5 F 92 H 20 142/105 H 11/04/18 07:05 98.5 F 92 H 20 142/105 H 11/03/18 16:00 81 123/89 11/03/18 09:48 89 153/102 H 11/03/18 07:34 98.6 F 89 22 153/102 H 11/02/18 18:48 94 H 18 11/02/18 15:23 97.9 F 84 18 124/75 99 11/02/18 15:21 97.9 F 84 18 124/75 99 11/02/18 11:41 93 H 18 122/79 97 11/02/18 08:48 98.7 F 92 H 18 135/88 99 Diagnostic Results: Patient was seen by medical team as well as neurology team Discussed with Dr. Thompson B12 level was ordered, TSH and free T4 is down, CT scan of the head with no contrast DSM 5 Symptoms Update: shortly, pt is 58 year old female, self reported h/o depression and anxiety, one previous psychiatric admission, 2 previous suicidal attempts, first 1 was at age of 18 patient overdosed on alcohol and pills, patient was admitted to ICU for 7 days then stayed in to the psychiatric inpatient unit for 3 weeks, second suicidal attempt was about 7 years ago, patient overdosed on pills, patient reported lives in [place], came to [place] visiting her family, patient is not sure how she ended up in [place], patient reported that she called 911 because she was feeling depressed and anxious. In the emergency room patient was initially complaining of abdominal pain, nausea, vomiting, patient also reported that she is depressed that is why psychiatric services were involved. Patient was admitted for evaluation and stabilization of depressive symptoms, anxiety, possible suicidal ideation with a plan to shotgun, patient de nied access to any guns. Patient was seen and examined today next nursing station, patient presented with acceptable personal hygiene, good ADLs, patient looks much older than her chronological age, has deep wrinkles in her face, uncombed hair. Patient has difficulties to express herself and verbalize her symptoms, patient was making general statements such as "I feel the same, I do not know, very depressed and anxious" Patient was seen by neurology, Dr. Thompson recommended no Aricept needed as of now, they will follow up on vitamin B12 level, CT scan of the head with no contrast could be done next week. pt reported that she has low energy, hopelessness and helplessness. as per staff pt is self isolating no psychosis, no agitation pt has good appetite pt tolerates meds well, no side effects observed or reported, AIMS 0, no EPS As per social services analyst patient is providing inconsistent stories today patient said that she was in boarding home, then she was in a skilled nursing, during the tr eatment team meeting patient said that she was living with her mother. This advertising copy writer would like to r/o dementia vs malingering, vs pseudodementia. Over the weekend as per nursing report patient was more visible in the unit, was brighter. Impression: r/o MDD r/o DAVID Medication Change: Yes (Zoloft increased) Medical Record Reviewed: Yes Consults ordered or reviewed: medical and GI consults called Neurology consult appreciated Mental Status Examination - Cognitive Function Orientation: Person, Place, Situation, Time Memory: Impaired Attention: Poor Concentration: Poor Association: Loose Fund of Knowledge: Poor - Mood Mood: Depressed (better), Anxious - Affect Affect: Constricted, Flat - Speech Speech: Appropriate - Formal Thought Process Formal Thought Process: No Impairment - Suicidal Ideation Suicidal Ideation: No - Homicidal Ideation Homicidal Ideation: No Goal/Treatment Plan - Goal/Treatment Plan Need for Continued Stay: Remain at risks for inpatient hospitalization, Severe depression anxiety, Discharge may exacerbated symptoms, Severe functional impairment Progress Toward Problem(s) and Goals/Treatment Plan: Milieu/structure/supportive therapy Medical consult appreciated, see medical team note for more detailed info SW consultation for discharge plan and social issues Med management As per patient she fills medication in [place] [facility] [phone], but as per record patient never filled any medication there Zoloft 100 mg daily for depression and anxiety Vistaril resumed 50 mg 3 times a day as needed for anxiety Sonata as needed 10 mg at the nighttime for insomnia Family involvement Follow up on labs Will monitor closely Pt was educated about risk/benefits and alternatives of medications, coping strategies (safety plan, suicide prevention), relapse prevention, importance of follow up with psychiatrist and therapist, stay away from drugs/alcohol/smoking Estimated Date of D/C: 11/11/18
[2018-11-09] MEDS: Metoprolol Succinate 50 mg XL Tab PO SCH (08:42)
[2018-11-09] MEDS: Pantoprazole 40 mg EC Tab PO SCH (08:43)
--- NOTE | 2018-11-09 09:05 | PN ---
DATE: 11/09/2018 LOCATION: The patient is seen in [facility] Behavioral Care Unit, room 514, bed 1. SUBJECTIVE: The patient is seen this morning ambulating. She feels better. The patient's constipation is relieved. The patient has no abdominal discomfort that she actually had before even admitted with depression. She has history of coronary artery disease, cerebrovascular disease, hypertension, chronic lung disease, cholecystitis, and cholelithiasis. PHYSICAL EXAMINATION: The patient is seen this morning. VITAL SIGNS: The pulse is 74. The patient's blood pressure is 112/80, and respirations are 20. HEENT: The patient's head is normocephalic. LUNGS: Clear. HEART: Normal sinus rhythm. S1 and S2 present. ABDOMEN: Soft. Nontender. CENTRAL NERVOUS SYSTEM: No focal deficits are noted. MEDICATIONS: Actigall 300 mg b.i.d., aspirin 81 mg daily. The patient is on Ativan, Geodon, Colace, Lipitor, Lyrica, magnesium oxide which is recommended for constipation. The patient is on nicotine patch for cigarette, nicotine withdrawal, cigarette smoker. The patient is on amlodipine, Plavix, pantoprazole, Sonata, and metoprolol. DIET: Heart healthy diet. ASSESSMENT AND PLAN: We will continue current management and followup. Medically, the patient is improving. Jose Alfredo Bolanos MD MTDAlex
--- NOTE | 2018-11-09 15:33 | PCM.PYCHPN ---
Psychiatric Progress Note - Psychiatric Progress Note Patient seen today, length of contact: 30min Patient Chief Complaint: "I feel depressed, I feel the same" Problems Identified/Issues Discussed: Suicide/ homicide prevention, past psychiatric h/o, current psychiatric symp toms, medical problems, risk/benefits and alternatives of medications, medications compliance, coping strategies, substance abuse h/o, relapse prevention, importance of follow up with psychiatrist and therapist, discharge plan. Medical Problems: 11/02/18 09:42 11/02/18 09:42 Lab Results 11/02/18 12:11: Urine Opiates Screen Negative, Urine Methadone Screen Negative, Ur Barbiturates Screen Negative, Ur Phencyclidine Scrn Negative, Ur Amphetamines Screen Negative, U Benzodiazepines Scrn Negative, U Oth Cocaine Metabols Negative, U Cannabinoids Screen Negative 11/02/18 09:42: Free T4 0.85, TSH 3rd Generation 1.19, Alcohol, Quantitative < 10 11/02/18 09:42: Salicylates < 1 L 11/02/18 09:42: Sodium 134, Chloride 96 L, Potassium 4.7, Carbon Dioxide 23, Anion Gap 20, BUN 13, Creatinine 0.6 L, Est GFR ( Amer) > 60, Est GFR (Non-Af Amer) > 60, Random Glucose 72, Calcium 9.8, Magnesium 1.8, Total Bilirubin 0.8, AST 35, ALT 32, Alkaline Phosphatase 98, Troponin I < 0.01, Total Protein 8.3, Albumin 4.6, Globulin 3.7, Albumin/Globulin Ratio 1.2, Lipase 40 11/02/18 09:42: pO2 41, VBG pH 7.31 L, VBG pCO2 44.0, VBG HCO3 22.2, VBG Total CO2 23.6, VBG O2 Sat (Calc) 78.4 H, VBG Base Excess -4.1 L, VBG Potassium 4.0, Sodium 132.0, Chloride 95.0 L, Glucose 72, Lactate 2.0, FiO2 21.0, Venous Blood Potassium 4.0 11/02/18 09:42: Urine Color Yellow, Urine Appearance Clear, Urine pH 6.0, Ur Specific [place] 1.020, Urine Protein Negative, Urine Glucose (UA) Negative, Urine Ketones >=80, Urine Blood Trace-intact H, Urine Nitrate Negative, Urine Bilirubin Negative, Urine Urobilinogen 0.2, Ur Leukocyte Esterase Negative, Urine RBC 1 - 3 H, Urine WBC 0 - 2, Ur Epithelial Cells 1 - 3, Urine Bacteria Few 11/02/18 09:42: PT 11.3, INR 0.98, APTT 27.8 11/02/18 09:42: WBC 7.9, RBC 4.24, Hgb 12.3, Hct 37.1, MCV 87.5, MCH 29.0, MCHC 33.2, RDW 14.7 H, Plt Count 341, MPV 9.2, Gran % 64.8, Lymph % (Auto) 24.6, [place] % (Auto) 9.6 H, Eos % (Auto) 0.1 L, Baso % (Auto) 0.9, Gran # 5.09, Lymph # (Auto) 1.9, [place] # (Auto) 0.8 H, Eos # (Auto) 0.0, Baso # (Auto) 0.07 Vital Signs Temp Pulse Pulse Resp BP Pulse Ox 11/04/18 09:29 81 17 122/93 H 11/04/18 08:40 92 H 142/105 H 11/04/18 08:38 92 H 142/105 H 11/04/18 07:08 98.5 F 92 H 20 142/105 H 11/04/18 07:05 98.5 F 92 H 20 142/105 H 11/03/18 16:00 81 123/89 11/03/18 09:48 89 153/102 H 11/03/18 07:34 98.6 F 89 22 153/102 H 11/02/18 18:48 94 H 18 11/02/18 15:23 97.9 F 84 18 124/75 99 11/02/18 15:21 97.9 F 84 18 124/75 99 11/02/18 11:41 93 H 18 122/79 97 11/02/18 08:48 98.7 F 92 H 18 135/88 99 Diagnostic Results: Patient was seen by medical team as well as neurology team Discussed with Dr. Thompson B12 level was ordered, TSH and free T4 is down, CT scan of the head with no contrast DSM 5 Symptoms Update: shortly, pt is 58 year old female, self reported h/o depression and anxiety, one previous psychiatric admission, 2 previous suicidal attempts, first 1 was at age of 18 patient overdosed on alcohol and pills, patient was admitted to ICU for 7 days then stayed in to the psychiatric inpatient unit for 3 weeks, second suicidal attempt was about 7 years ago, patient overdosed on pills, patient reported lives in [place], came to [place] visiting her family, patient is not sure how she ended up in [place], patient reported that she called 911 because she was feeling depressed and anxious. In the emergency room patient was initially complaining of abdominal pain, nausea, vomiting, patient also reported that she is depressed that is why psychiatric services were involved. Patient was admitted for evaluation and stabilization of depressive symptoms, anxiety, possible suicidal ideation with a plan to shotgun, patient denied access to any guns. Patient was seen and examined today in her room, patient presented with acceptable personal hygiene, good ADLs, patient looks much older than her chronological age, has deep wrinkles in her face, uncombed hair. Patient has difficulties to express herself and verbalize her symptoms, patient was making general statements such as "I feel the same, I do not know, very depressed and anxious", pt then asked what she could have for mood stabilization, then asked about seroquel, willing to resume. Patient was seen by neurology, Dr. Thompson recommended no Aricept needed as of now, they will follow up on vitamin B12 level, CT scan of the head with no contrast could be done next week. pt reported that she has low energy, hopelessness and helplessness. as per staff pt is self isolating no psychosis, no agitation pt has good appetite pt tolerates meds well, no side effects observed or reported, AIMS 0, no EPS As per psychiatric social worker supervisor patient is providing inconsistent stories today patient said that she was in boarding home, then she was in a group home, during the treatment team meeting patient said that she was living with her mother. This bond writer would like to r/o dementia vs malingering, vs pseudodementia. Over the weekend as per nursing report patient was more visible in the unit, was brighter. Impression: r/o MDD r/o DAVID Medication Change: Yes (seroquel resumed) Medical Record Reviewed: Yes Consults ordered or reviewed: medical and GI consults called Neurology consult appreciated Mental Status Examination - Cognitive Function Orientation: Person, Place, Situation, Time Memory: Impaired Attention: Poor Concentration: Poor Association: Loose Fund of Knowledge: Poor - Mood Mood: Depressed (better), Anxious - Affect Affect: Constricted, Flat - Speech Speech: Appropriate - Formal Thought Process Formal Thought Process: No Impairment - Suicidal Ideation Suicidal Ideation: No - Homicidal Ideation Homicidal Ideation: No Goal/Treatment Plan - Goal/Treatment Plan Need for Continued Stay: Remain at risks for inpatient hospitalization, Severe depression anxiety, Discharge may exacerbated symptoms, Severe functional impairment Progress Toward Problem(s) and Goals/Treatment Plan: Milieu/structure/supportive therapy Medical consult appreciated, see medical team note for more detailed info SW consultation for discharge plan and social issues Med management As per patient she fills medication in [facility] [phone], but as per record patient never filled any medication there Zoloft 100 mg daily for depression and anxiety Vistaril resumed 50 mg 3 times a day as needed for anxiety sonata d/c seroquel 100mg po hs, for mood stabilization, pt is not neuroleptically naive, it will be safe for the pt to start with 100mg Family involvement Follow up on labs Will monitor closely Pt was educated about risk/benefits and alternatives of medications, coping strategies (safety plan, suicide prevention), relapse prevention, importance of follow up with psychiatrist and therapist, stay away from drugs/alcohol/smoking Estimated Date of D/C: 11/12/18
[2018-11-10] MEDS: Metoprolol Succinate 50 mg XL Tab PO SCH (08:36)
[2018-11-10] MEDS: Pantoprazole 40 mg EC Tab PO SCH (08:37)
--- NOTE | 2018-11-10 11:51 | PN ---
DATE: 11/10/2018 LOCATION: The patient is in the Behavioral Care Unit Care [facility] in [place]. SUBJECTIVE: She was admitted with depression. She has history of coronary artery disease, cerebrovascular disease, hypertension, and chronic lung disease. PHYSICAL EXAMINATION: VITAL SIGNS: The patient's vital signs this morning; pulse is 75, blood pressure 130/95, and respirations are 20. HEENT: The patient's head is normocephalic. LUNGS: Clear. HEART: Normal sinus rhythm. S1 and S2 present. No murmurs. ABDOMEN: Soft. Liver and spleen not palpable. No tenderness. CENTRAL NERVOUS SYSTEM: No focal deficits. MEDICATIONS: The patient's medications list consists of Actigall 300 mg twice a day. The patient is on aspirin 81 mg daily. The patient also gets Ativan, Geodon p.r.n. The patient is on Lipitor 10 mg daily, Lyrica 50 mg three times a day, nicotine patch for withdrawal from nicotine. The patient is a smoker. LABORATORY DATA: Lab work, no change. ASSESSMENT AND PLAN: We will continue current management and followup medically. Jose Alfredo Bolanos MD [facility]
--- NOTE | 2018-11-10 15:31 | PCM.PYCHPN ---
Psychiatric Progress Note - Psychiatric Progress Note Patient seen today, length of contact: 30min Patient Chief Complaint: "I do not know, my symptoms need to be addressed, can you increase the dose of my medications for my symptoms?" At the same time patient had difficulties to describe reported symptoms that she have. Problems Identified/Issues Discussed: Suicide/ homicide prevention, past psychiatric h/o, current psychiatric symptoms, medical problems, risk/benefits and alternatives of medications, medications compliance, coping strategies, substance abuse h/o, relapse prevention, importance of follow up with psychiatrist and therapist, discharge plan. Medical Problems: 11/02/18 09:42 11/02/18 09:42 Lab Results 11/02/18 12:11: Urine Opiates Screen Negative, Urine Methadone Screen Negative, Ur Barbiturates Screen Negative, Ur Phencyclidine Scrn Negative, Ur Amphetamines Screen Negative, U Benzodiazepines Scrn Negative, U Oth Cocaine Metabols Negative, U Cannabinoids Screen Negative 11/02/18 09:42: Free T4 0.85, TSH 3rd Generation 1.19, Alcohol, Quantitative < 10 11/02/18 09:42: Salicylates < 1 L 11/02/18 09:42: Sodium 134, Chloride 96 L, Potassium 4.7, Carbon Dioxide 23, Anion Gap 20, BUN 13, Creatinine 0.6 L, Est GFR ( Amer) > 60, Est GFR (Non-Af Amer) > 60, Random Glucose 72, Calcium 9.8, Magnesium 1.8, Total Bilirubin 0.8, AST 35, ALT 32, Alkaline Phosphatase 98, Troponin I < 0.01, Total Protein 8.3, Albumin 4.6, Globulin 3.7, Albumin/Globulin Ratio 1.2, Lipase 40 11/02/18 09:42: pO2 41, VBG pH 7.31 L, VBG pCO2 44.0, VBG HCO3 22.2, VBG Total CO2 23.6, VBG O2 Sat (Calc) 78.4 H, VBG Base Excess -4.1 L, VBG Potassium 4.0, Sodium 132.0, Chloride 95.0 L, Glucose 72, Lactate 2.0, FiO2 21.0, Venous Blood Potassium 4.0 11/02/18 09:42: Urine Color Yellow, Urine Appearance Clear, Urine pH 6.0, Ur Specific [place] 1.020, Urine Protein Negative, Urine Glucose (UA) Negative, Urine Ketones >=80, Urine Blood Trace-intact H, Urine Nitrate Negative, Urine Bilirubin Negative, Urine Urobilinogen 0.2, Ur Leukocyte Esterase Negative, Urine RBC 1 - 3 H, Urine WBC 0 - 2, Ur Epithelial Cells 1 - 3, Urine Bacteria Few 11/02/18 09:42: PT 11.3, INR 0.98, APTT 27.8 11/02/18 09:42: WBC 7.9, RBC 4.24, Hgb 12.3, Hct 37.1, MCV 87.5, MCH 29.0, MCHC 33.2, RDW 14.7 H, Plt Count 341, MPV 9.2, Gran % 64.8, Lymph % (Auto) 24.6, [place] % (Auto) 9.6 H, Eos % (Auto) 0.1 L, Baso % (Auto) 0.9, Gran # 5.09, Lymph # (Auto) 1.9, [place] # (Auto) 0.8 H, Eos # (Auto) 0.0, Baso # (Auto) 0.07 Vital Signs Temp Pulse Pulse Resp BP Pulse Ox 11/04/18 09:29 81 17 122/93 H 11/04/18 08:40 92 H 142/105 H 11/04/18 08:38 92 H 142/105 H 11/04/18 07:08 98.5 F 92 H 20 142/105 H 11/04/18 07:05 98.5 F 92 H 20 142/105 H 11/03/18 16:00 81 123/89 11/03/18 09:48 89 153/102 H 11/03/18 07:34 98.6 F 89 22 153/102 H 11/02/18 18:48 94 H 18 11/02/18 15:23 97.9 F 84 18 124/75 99 11/02/18 15:21 97.9 F 84 18 124/75 99 11/02/18 11:41 93 H 18 122/79 97 11/02/18 08:48 98.7 F 92 H 18 135/88 99 Diagnostic Results: Patient was seen by medical team as well as neurology team Discussed with Dr. Thompson B12 level was ordered, TSH and free T4 is down, CT scan of the head with no contrast DSM 5 Symptoms Update: shortly, pt is 58 year old female, self reported h/o depression and anxiety, one previous psychiatric admission, 2 previous suicidal attempts, first 1 was at age of 18 patient overdosed on alcohol and pills, patient was admitted to ICU for 7 days then stayed in to the psychiatric inpatient unit for 3 weeks, second suicidal attempt was about 7 years ago, patient overdosed on pills, jason maya reported lives in [place], came to [place] visiting her family, patient is not sure how she ended up in [place], patient reported that she called 911 because she was feeling depressed and anxious. In the emergency room patient was initially complaining of abdominal pain, nausea, vomiting, patient also reported that she is depressed that is why psychiatric services were involved. Patient was admitted for evaluation and stabilization of depressive symptoms, anxiety, possible suicidal ideation with a plan to shotgun, patient denied access to any guns. Patient was seen and examined today at the treatment team meeting, patient presented with some improvements with her mood, still has difficulties to express herself and find right words for description of her symptoms. Patient r eported slept well, patient denied hearing voices, denied seeing things, patient has angry feelings towards her family and her mother especially. Patient was stated "my mother think that I am disappointment for her, may be she is disappointment for all of us". Patient was seen by neurology, Dr. Thompson recommended no Aricept needed as of now, they will follow up on vitamin B12 level, CT scan of the head with no contrast could be done next week. pt reported that she has low energy, hopelessness and helplessness. as per staff pt is self isolating, keeps asking for Ativan which will be decrea sed today pt has good appetite pt tolerates meds well, no side effects observed or reported, AIMS 0, no EPS Patient was accepted to boarding home, but patient does not know how she feels about it. Impression: r/o MDD r/o DAVID Medication Change: Yes (Seroquel increased, Ativan decreased) Medical Record Reviewed: Yes Mental Status Examination - Cognitive Function Orientation: Person, Place, Situation, Time Memory: Impaired Attention: Poor Concentration: Poor Association: Loose Fund of Knowledge: Poor - Mood Mood: Depressed (better), Anxious - Affect Affect: Constricted, Flat - Speech Speech: Appropriate - Formal Thought Process Formal Thought Process: No Impairment - Suicidal Ideation Suicidal Ideation: No - Homicidal Ideation Homicidal Ideation: No Goal/Treatment Plan - Goal/Treatment Plan Need for Continued Stay: Remain at risks for inpatient hospitalization, Severe depression anxiety, Discharge may exacerbated symptoms, Severe functional imp airment Progress Toward Problem(s) and Goals/Treatment Plan: Milieu/structure/supportive therapy Medical consult appreciated, see medical team note for more detailed info SW consultation for discharge plan and social issues Med management As per patient she fills medication in [facility] [phone], but as per record patient never filled any medication there Zoloft 150 mg daily for depression and anxiety Vistaril resumed 50 mg 3 times a day as needed for anxiety sonata d/c seroquel 100mg po a.m. and at bedtime for mood stabilization Family involvement Follow up on labs Will monitor closely Pt was educated about risk/benefits and alternatives of medications, coping strategies (safety plan, suicide prevention), relapse prevention, importance of follow up with psychiatrist and therapist, stay away from drugs/alcohol/smoking Estimated Date of D/C: 11/15/18
--- NOTE | 2018-11-10 15:43 | PCM.BM ---
<Maegan Rooney Y - Last Filed: 11/10/18 15:43> Treatment Plan Problems - Problems identified on initial assessmt anxiety Date Initiated: 11/02/18 Time Initiated: 18:30 Assessment reference: NA Status: Active Priority: 1 fear Date Initiated: 11/02/18 Time Initiated: 18:30 Status: Active Priority: 2 panic attacks Date Initiated: 11/02/18 Time Initiated: 18:30 Assessment reference: NA Status: Active Priority: 3 altered sleep pattern Date Initiated: 11/02/18 Time Initiated: 18:30 Assessment reference: NA Status: Active Priority: 4 Treatment assets and liabiliti Patient Assests: cooperative, ADL independent, cognitively intact Patient Liabilities: live alone, financial problems, poor support system - Milieu Protocol Maintain good personal hygiene: every shift Encourage regular showers, every shift Remind patient to perform daily oral care, every shift Assist patient to perform ADL's Maintain personal safety: every shift Educate patient to report safety concerns to staff, every shift Monitor environment for contraband/sharps Medication safety: Monitor for expected outcome, potential side effects: every shift, Assess barriers to learning: every shift, Assess readiness for medication education: every shift Milieu Narrative: Milieu/structure/supportive therapy Medical consult appreciated, see medical team note for more detailed info SW consultation for discharge plan and social issues Med management As per patient she fills medication in [facility] [phone], but as per record patient never filled any medication there Zoloft 150 mg daily for depression and anxiety Vistaril resumed 50 mg 3 times a day as needed for anxiety sonata d/c seroquel 100mg po a.m. and at bedtime for mood stabilization Family involvement Follow up on labs Will monitor closely Pt was educated about risk/benefits and alternatives of medications, coping strategies (safety plan, suicide prevention), relapse prevention, importance of follow up with psychiatrist and therapist, stay away from drugs/alcohol/smoking Family Contact Family involvement: Famliy/SO not involved - Goals for Treatment Patient goals for treatment: "I want my anxiety to be controlled." Discharge/Continuing Care - Education Needs Education Needs: Patient Medication, Patient Diagnosis/Disease Process, Patient Coping Skills, Patient Placement options, Patient Community resources, Patient Activities of Daily Living, Patient Pain, Patient Nutrition, Patient Health Practices/Safety, Patient Personal Hygiene/Grooming, Patient Aftercare Safety Plan - Discharge Discharge Criteria: Tolerates medication w/o severe side effects, Free of Suicidal thoughts, Normal sleep pattern, Ability to care for self, Reduction of target symptoms Discharge to:: Home - Treatment Team Participation Patient/Family/SO Statement: Milieu/structure/supportive therapy Medical consult appreciated, see medical team note for more detailed info SW consultation for discharge plan and social issues Med management As per patient she fills medication in [facility] [phone], but as per record patient never filled any medication there Zoloft 150 mg daily for depression and anxiety Vistaril resumed 50 mg 3 times a day as needed for anxiety sonata d/c seroquel 100mg po a.m. and at bedtime for mood stabilization Family involvement Follow up on labs Will monitor closely Pt was educated about risk/benefits and alternatives of medications, coping strategies (safety plan, suicide prevention), relapse prevention, importance of follow up with psychiatrist and therapist, stay away from drugs/alcohol/smoking Treatment Plan Review - Problem anxiety Time Initiated: 18:30 fear Time Initiated: 18:30 panic attacks Time Initiated: 18:30 altered sleep pattern Time Initiated: 18:30 <Teresa Stahl - Last Filed: 11/11/18 15:17> - Diagnosis (1) Depression Status: Acute Interventions: 11/11/18 15:13 pt still depressed but not suicidal or homicidal good appetite and sleep (2) Anxiety Status: Acute Interventions: 11/11/18 15:16 still reports to be anxious but visible in the unit
[2018-11-11] MEDS: Pantoprazole 40 mg EC Tab PO SCH (07:17)
[2018-11-11] MEDS: Metoprolol Succinate 50 mg XL Tab PO SCH (07:18)
--- NOTE | 2018-11-11 09:49 | PN ---
DATE: 11/11/2018 LOCATION: The patient is in [facility] in [place] in room 514, bed 1. SUBJECTIVE: THE PATIENT IS ALLERGIC TO CHOCOLATE AND PEANUT. She is admitted with depression, and she has history of coronary artery disease and cerebrovascular disease. The patient also has history of chronic lung disease, hypertension, gastritis and cholelithiasis. The patient is seen this morning. She is comfortable and ambulating. PHYSICAL EXAMINATION: VITAL SIGNS: The patient's pulse is 70, blood pressure 130/90, and respirations are 20 per minute. LUNGS: The patient's lungs are clear. HEART: Normal sinus rhythm. S1 and S2 present. No murmurs. ABDOMEN: Soft. Liver and spleen not palpable. No tenderness. LABORATORY DATA: Studies performed on the gallbladder by ultrasound did not reveal any calculi in the gallbladder. The patient is on Actigall and probably that is helping to dissolve the stones. MEDICATIONS: The patient's other medications consist of aspirin and the patient is on Lipitor and Ativan. The patient gets Lyrica, nicotine patch, amlodipine 5 mg daily, Plavix 75 mg daily, pantoprazole 40 mg daily, and the patient is on Seroquel 100 mg p.o. at bedtime. DIET: Heart healthy diet. ASSESSMENT AND PLAN: The patient is medically stable and improved. We will continue to follow up the patient's medical conditions. Jose Alfredo Bolanos MD [facility]
--- NOTE | 2018-11-11 15:20 | PCM.PYCHPN ---
Psychiatric Progress Note - Psychiatric Progress Note Patient seen today, length of contact: 30min Patient Chief Complaint: "I do not know, my symptoms need to be addressed, can you increase the dose of my medications for my symptoms?" At the same time patient had difficulties to describe reported symptoms that she have. Problems Identified/Issues Discussed: Suicide/ homicide prevention, past psychiatric h/o, current psychiatric symptoms, medical problems, risk/benefits and alternatives of medications, medications compliance, coping strategies, substance abuse h/o, relapse prevention, importance of follow up with psychiatrist and therapist, discharge plan. Medical Problems: 11/02/18 09:42 11/02/18 09:42 Lab Results 11/02/18 12:11: Urine Opiates Screen Negative, Urine Methadone Screen Negative, Ur Barbiturates Screen Negative, Ur Phencyclidine Scrn Negative, Ur Amphetamines Screen Negative, U Benzodiazepines Scrn Negative, U Oth Cocaine Metabols Negative, U Cannabinoids Screen Negative 11/02/18 09:42: Free T4 0.85, TSH 3rd Generation 1.19, Alcohol, Quantitative < 10 11/02/18 09:42: Salicylates < 1 L 11/02/18 09:42: Sodium 134, Chloride 96 L, Potassium 4.7, Carbon Dioxide 23, Anion Gap 20, BUN 13, Creatinine 0.6 L, Est GFR ( Amer) > 60, Est GFR (Non-Af Amer) > 60, Random Glucose 72, Calcium 9.8, Magnesium 1.8, Total Bilirubin 0.8, AST 35, ALT 32, Alkaline Phosphatase 98, Troponin I < 0.01, Total Protein 8.3, Albumin 4.6, Globulin 3.7, Albumin/Globulin Ratio 1.2, Lipase 40 11/02/18 09:42: pO2 41, VBG pH 7.31 L, VBG pCO2 44.0, VBG HCO3 22.2, VBG Total CO2 23.6, VBG O2 Sat (Calc) 78.4 H, VBG Base Excess -4.1 L, VBG Potassium 4.0, Sodium 132.0, Chloride 95.0 L, Glucose 72, Lactate 2.0, FiO2 21.0, Venous Blood Potassium 4.0 11/02/18 09:42: Urine Color Yellow, Urine Appearance Clear, Urine pH 6.0, Ur Specific [place] 1.020, Urine Protein Negative, Urine Glucose (UA) Negative, Urine Ketones >=80, Urine Blood Trace-intact H, Urine Nitrate Negative, Urine Bilirubin Negative, Urine Urobilinogen 0.2, Ur Leukocyte Esterase Negative, Urine RBC 1 - 3 H, Urine WBC 0 - 2, Ur Epithelial Cells 1 - 3, Urine Bacteria Few 11/02/18 09:42: PT 11.3, INR 0.98, APTT 27.8 11/02/18 09:42: WBC 7.9, RBC 4.24, Hgb 12.3, Hct 37.1, MCV 87.5, MCH 29.0, MCHC 33.2, RDW 14.7 H, Plt Count 341, MPV 9.2, Gran % 64.8, Lymph % (Auto) 24.6, [place] % (Auto) 9.6 H, Eos % (Auto) 0.1 L, Baso % (Auto) 0.9, Gran # 5.09, Lymph # (Auto) 1.9, [place] # (Auto) 0.8 H, Eos # (Auto) 0.0, Baso # (Auto) 0.07 Vital Signs Temp Pulse Pulse Resp BP Pulse Ox 11/04/18 09:29 81 17 122/93 H 11/04/18 08:40 92 H 142/105 H 11/04/18 08:38 92 H 142/105 H 11/04/18 07:08 98.5 F 92 H 20 142/105 H 11/04/18 07:05 98.5 F 92 H 20 142/105 H 11/03/18 16:00 81 123/89 11/03/18 09:48 89 153/102 H 11/03/18 07:34 98.6 F 89 22 153/102 H 11/02/18 18:48 94 H 18 11/02/18 15:23 97.9 F 84 18 124/75 99 11/02/18 15:21 97.9 F 84 18 124/75 99 11/02/18 11:41 93 H 18 122/79 97 11/02/18 08:48 98.7 F 92 H 18 135/88 99 Diagnostic Results: Patient was seen by medical team as well as neurology team Discussed with Dr. Thompson B12 level was ordered, TSH and free T4 is down, CT scan of the head with no contrast DSM 5 Symptoms Update: shortly, pt is 58 year old female, self reported h/o depression and anxiety, one previous psychiatric admission, 2 previous suicidal attempts, first 1 was at age of 18 patient overdosed on alcohol and pills, patient was admitted to ICU for 7 days then stayed in to the psychiatric inpatient unit for 3 weeks, second suicidal attempt was about 7 years ago, patient overdosed on pills, jason maya reported lives in [place], came to [place] visiting her family, patient is not sure how she ended up in [place], patient reported that she called 911 because she was feeling depressed and anxious. In the emergency room patient was initially complaining of abdominal pain, nausea, vomiting, patient also reported that she is depressed that is why psychiatric services were involved. Patient was admitted for evaluation and stabilization of depressive symptoms, anxiety, possible suicidal ideation with a plan to shotgun, patient denied access to any guns. Patient was seen and examined today next to the nursing station. patient presented with some improvements with her mood, still has difficulties to express herself and find right words for description of her symptoms. Patient reported slept well, patient denied hearing voices, denied seeing things. pt reported that she has low energy, hopelessness and helplessness. as per staff pt is visible in the unit, watch TV, very passive in regards of making a phone calls and f/u plan pt has good appetite pt tolerates meds well, no side effects observed or reported, AIMS 0, no EPS Patient was accepted to boarding home, but patient does not know how she feels about it. Impression: r/o MDD r/o DAVID Medication Change: Yes (Seroquel increased, Ativan decreased) Medical Record Reviewed: Yes Mental Status Examination - Cognitive Function Orientation: Person, Place, Situation, Time Memory: Impaired Attention: Poor Concentration: Poor Association: Loose Fund of Knowledge: Poor - Mood Mood: Depressed (better), Anxious - Affect Affect: Constricted, Flat - Speech Speech: Appropriate - Formal Thought Process Formal Thought Process: No Impairment - Suicidal Ideation Suicidal Ideation: No - Homicidal Ideation Homicidal Ideation: No Goal/Treatment Plan - Goal/Treatment Plan Need for Continued Stay: Remain at risks for inpatient hospitalization, Severe depression anxiety, Discharge may exacerbated symptoms, Severe functional impairment Progress Toward Problem(s) and Goals/Treatment Plan: Milieu/structure/supportive therapy Medical consult appreciated, see medical team note for more detailed info SW consultation for discharge plan and social issues Med management As per patient she fills medication in [facility] [phone], but as per record patient never filled any medication there Zoloft 150 mg daily for depression and anxiety Vistaril resumed 50 mg 3 times a day as needed for anxiety sonata d/c seroquel 100mg po a.m. and at bedtime for mood stabilization Family involvement Follow up on labs Will monitor closely Pt was educated about risk/benefits and alternatives of medications, coping strategies (safety plan, suicide prevention), relapse prevention, importance of follow up with psychiatrist and therapist, stay away from drugs/alcohol/smoking Estimated Date of D/C: 11/15/18
[2018-11-12] MEDS: Pantoprazole 40 mg EC Tab PO SCH (08:32)
[2018-11-12] MEDS: Metoprolol Succinate 50 mg XL Tab PO SCH (08:35)
--- NOTE | 2018-11-12 10:59 | PN ---
DATE: 11/12/2018 LOCATION: The patient is in the Behavioral Care Unit, [facility]. SUBJECTIVE: The patient was admitted with depression, suicidal tendency. The patient has history of chronic lung disease, atherosclerotic heart disease, cerebrovascular disease. The patient has history of hypertension. The patient is improved clinically. The patient has had history of cholelithiasis, the gallstones seem to have resolved with Actigall. PHYSICAL EXAMINATION VITAL SIGNS: Pulse is 73, blood pressure 128/78, respirations 20 and O2 saturation 98% on room air. HEENT: The patient's head is normocephalic. NECK: Thyroid is not enlarged. No lymphadenopathy. The carotid pulses are present. LUNGS: Tracheal central. Breath sounds are vesicular. No adventitious sounds. HEART: Normal sinus rhythm. S1 and S2 present. No rubs. No murmurs. ABDOMEN: Soft. Liver and spleen not palpable. No tenderness. No localizing signs. CENTRAL NERVOUS SYSTEM: The patient is conscious, seems to be more rational. No focal neurological deficit. LABORATORY DATA: The patient's lab work remains the same. The patient is waiting for placement in a boarding house and we will followup medically while the patient is under the care of the Behavioral Care Unit. Her medication list consist of Actigall 300 mg b.i.d. The patient is on aspirin 81 mg daily, Ativan 1 mg every 6 hours p.r.n. The patient is on Colace 100 mg b.i.d., Lipitor 10 mg daily. The patient gets Lyrica 50 mg 3 times a day, milk of magnesia for constipation, nicotine patch for nicotine withdrawal, she is smoker by history and the patient is also getting Plavix 75 mg daily, amlodipine 5 mg daily, pantoprazole 40 mg daily. These are her medications and she is getting them during the hospital stay. She will be advised to take these medicines when she goes home. Jose Alfredo Bolanos MD [facility]
--- NOTE | 2018-11-12 14:46 | PCM.PYCHPN ---
Psychiatric Progress Note - Psychiatric Progress Note Patient seen today, length of contact: 30min Patient Chief Complaint: "I do not know, I feel very anxious, I don't know what to say... 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 Medical Problems: 11/02/18 09:42 11/02/18 09:42 Lab Results 11/02/18 12:11: Urine Opiates Screen Negative, Urine Methadone Screen Negative, Ur Barbiturates Screen Negative, Ur Phencyclidine Scrn Negative, Ur Amphetamines Screen Negative, U Benzodiazepines Scrn Negative, U Oth Cocaine Metabols Negative, U Cannabinoids Screen Negative 11/02/18 09:42: Free T4 0.85, TSH 3rd Generation 1.19, Alcohol, Quantitative < 10 11/02/18 09:42: Salicylates < 1 L 11/02/18 09:42: Sodium 134, Chloride 96 L, Potassium 4.7, Carbon Dioxide 23, Anion Gap 20, BUN 13, Creatinine 0.6 L, Est GFR ( Amer) > 60, Est GFR (Non-Af Amer) > 60, Random Glucose 72, Calcium 9.8, Magnesium 1.8, Total Bilirubin 0.8, AST 35, ALT 32, Alkaline Phosphatase 98, Troponin I < 0.01, Total Protein 8.3, Albumin 4.6, Globulin 3.7, Albumin/Globulin Ratio 1.2, Lipase 40 11/02/18 09:42: pO2 41, VBG pH 7.31 L, VBG pCO2 44.0, VBG HCO3 22.2, VBG Total CO2 23.6, VBG O2 Sat (Calc) 78.4 H, VBG Base Excess -4.1 L, VBG Potassium 4.0, Sodium 132.0, Chloride 95.0 L, Glucose 72, Lactate 2.0, FiO2 21.0, Venous Blood Potassium 4.0 11/02/18 09:42: Urine Color Yellow, Urine Appearance Clear, Urine pH 6.0, Ur Specific [place] 1.020, Urine Protein Negative, Urine Glucose (UA) Negative, Urine Ketones >=80, Urine Blood Trace-intact H, Urine Nitrate Negative, Urine Bilirubin Negative, Urine Urobilinogen 0.2, Ur Leukocyte Esterase Negative, Urine RBC 1 - 3 H, Urine WBC 0 - 2, Ur Epithelial Cells 1 - 3, Urine Bacteria Few 11/02/18 09:42: PT 11.3, INR 0.98, APTT 27.8 11/02/18 09:42: WBC 7.9, RBC 4.24, Hgb 12.3, Hct 37.1, MCV 87.5, MCH 29.0, MCHC 33.2, RDW 14.7 H, Plt Count 341, MPV 9.2, Gran % 64.8, Lymph % (Auto) 24.6, [place] % (Auto) 9.6 H, Eos % (Auto) 0.1 L, Baso % (Auto) 0.9, Gran # 5.09, Lymph # (Auto) 1.9, [place] # (Auto) 0.8 H, Eos # (Auto) 0.0, Baso # (Auto) 0.07 Vital Signs Temp Pulse Pulse Resp BP Pulse Ox 11/04/18 09:29 81 17 122/93 H 11/04/18 08:40 92 H 142/105 H 11/04/18 08:38 92 H 142/105 H 11/04/18 07:08 98.5 F 92 H 20 142/105 H 11/04/18 07:05 98.5 F 92 H 20 142/105 H 11/03/18 16:00 81 123/89 11/03/18 09:48 89 153/102 H 11/03/18 07:34 98.6 F 89 22 153/102 H 11/02/18 18:48 94 H 18 11/02/18 15:23 97.9 F 84 18 124/75 99 11/02/18 15:21 97.9 F 84 18 124/75 99 11/02/18 11:41 93 H 18 122/79 97 11/02/18 08:48 98.7 F 92 H 18 135/88 99 Diagnostic Results: Patient was seen by medical team as well as neurology team Discussed with Dr. Thompson B12 level was ordered, TSH and free T4 is down, CT scan of the head with no contrast DSM 5 Symptoms Update: shortly, pt is 58 year old female, self reported h/o depression and anxiety, one previous psychiatric admission, 2 previous suicidal attempts, first 1 was at age of 18 patient overdosed on alcohol and pills, patient was admitted to ICU for 7 days then stayed in to the psychiatric inpatient unit for 3 weeks, second suicidal attempt was about 7 years ago, patient overdosed on pills, patient reported lives in [place], came to [place] visiting her family, patient is not sure how she ended up in [place], patient reported that she called 911 because she was feeling depressed and anxious. In the emergency room patient was initially complaining of abdominal pain, nausea, vomiting, patient also reported that she is depressed that is why psychiatric services were involved. Patient was admitted for evaluation and stabilization of depressive symptoms, anxiety, possible suicidal ideation with a plan to shotgun, patient denied access to any guns. Patient was seen and examined today next to the nursing station. patient presented with some improvements with her mood, still has difficulties to express herself and find right words for description of her symptoms, pt was repeating that she is anxious and "I don't know". but when this television script writer compare pt prior to admission, pt said "oh yes I am better". Patient reported slept well, patient denied hearing voices, denied seeing things. pt reported that she has low energy, hopelessness and helplessness. as per staff pt is visible in the unit, watch TV, very passive in regards of m aking a phone calls and f/u plan pt has good appetite pt tolerates meds well, no side effects observed or reported, AIMS 0, no EPS Patient was accepted to boarding home, but patient does not know how she feels about it. Impression: r/o MDD r/o DAVID Medication Change: Yes ( ) Medical Record Reviewed: Yes Mental Status Examination - Cognitive Function Orientation: Person, Place, Situation, Time Memory: Impaired Attention: Poor Concentration: Poor Association: Loose Fund of Knowledge: Poor - Mood Mood: Depressed (better), Anxious - Affect Affect: Constricted, Flat - Speech Speech: Appropriate - Formal Thought Process Formal Thought Process: No Impairment - Suicidal Ideation Suicidal Ideation: No - Homicidal Ideation Homicidal Ideation: No Goal/Treatment Plan - Goal/Treatment Plan Need for Continued Stay: Remain at risks for inpatient hospitalization, Severe depression anxiety, Discharge may exacerbated symptoms, Severe functional impairment Progress Toward Problem(s) and Goals/Treatment Plan: Milieu/structure/supportive therapy Medical consult appreciated, see medical team note for more detailed info SW consultation for discharge plan and social issues Med management As per patient she fills medication in [facility] [phone], but as per record patient never filled any medication there Zoloft 200 mg daily for depression and anxiety Vistaril resumed 50 mg 3 times a day as needed for anxiety sonata resumed seroquel 100mg po a.m. and at bedtime for mood stabilization Family involvement Follow up on labs Will monitor closely Pt was educated about risk/benefits and alternatives of medications, coping strategies (safety plan, suicide prevention), relapse prevention, importance of follow up with psychiatrist and therapist, stay away from drugs/alcohol/smoking Estimated Date of D/C: 11/15/18
--- NOTE | 2018-11-13 08:21 | CP.PCM.PN ---
Subjective - Date & Time of Evaluation Date of Evaluation: 11/13/18 Time of Evaluation: 08:00 - Subjective Subjective: Patient is in the behavioral care unit for depression. Patient says she feels better. Objective - Vital Signs/Intake and Output Vital Signs (last 24 hours): Temp Pulse Resp BP Pulse Ox 98.2 F 72 20 118/82 99 11/13/18 07:00 11/13/18 07:00 11/13/18 07:00 11/13/18 07:00 11/02/18 15:23 - Medications Medications: Current Medications Acetaminophen (Tylenol 325mg Tab) 650 mg PO Q6H PRN PRN Reason: Pain, moderate (4-7) Last Admin: 11/05/18 15:41 Dose: 650 mg Al Hydrox/Mg Hydrox/Simethicone (Maalox Plus 30 Ml) 30 ml PO DAILY PRN PRN Reason: Indigestion / Heartburn Last Admin: 11/06/18 08:32 Dose: 30 ml Amlodipine Besylate (Norvasc) 5 mg PO DAILY [facility] Last Admin: 11/12/18 08:35 Dose: 5 mg Aspirin (Aspirin Chewable) 81 mg PO DAILY [facility] Last Admin: 11/12/18 08:34 Dose: 81 mg Atorvastatin Calcium (Lipitor) 10 mg PO DIN [facility] Last Admin: 11/12/18 16:06 Dose: 10 mg Clopidogrel Bisulfate (Plavix) 75 mg PO DAILY [facility] Last Admin: 11/12/18 08:34 Dose: 75 mg Docusate Sodium (Colace) 100 mg PO BID [facility] Last Admin: 11/12/18 16:06 Dose: 100 mg Hydroxyzine Pamoate (Vistaril) 50 mg PO Q8 PRN; Protocol PRN Reason: Anxiety Last Admin: 11/11/18 05:33 Dose: 50 mg Lorazepam (Ativan) 1 mg IM Q6H PRN; Protocol PRN Reason: Anxiety Lorazepam (Ativan) 0.5 mg PO Q6 PRN; Protocol PRN Reason: Anxiety Last Admin: 11/12/18 17:43 Dose: 0.5 mg Magnesium Hydroxide (Milk Of Magnesia) 30 ml PO DAILY PRN PRN Reason: Constipation Metoprolol Succinate (Toprol Xl) 50 mg PO BRK [facility] Last Admin: 11/12/18 08:35 Dose: 50 mg Nicotine (Nicoderm Cq) 1 patch TD DAILY [facility] Last Admin: 11/12/18 08:37 Dose: 1 patch Pantoprazole Sodium (Protonix Ec Tab) 40 mg PO DAILY [facility] Last Admin: 11/12/18 08:32 Dose: 40 mg Pregabalin (Lyrica) 50 mg PO TID [facility] Last Admin: 11/12/18 17:43 Dose: 50 mg Quetiapine Fumarate (Seroquel) 100 mg PO HS [facility]; Protocol Last Admin: 11/12/18 22:37 Dose: 100 mg Quetiapine Fumarate (Seroquel) 100 mg PO DAILY [facility]; Protocol Last Admin: 11/12/18 08:32 Dose: 100 mg Sertraline HCl (Zoloft) 200 mg PO DAILY [facility] Ursodiol (Actigall) 300 mg PO BID [facility] Last Admin: 11/12/18 16:06 Dose: 300 mg Zaleplon (Sonata) 10 mg PO HS [facility] Last Admin: 11/12/18 22:37 Dose: 10 mg Ziprasidone (Geodon Cap) 20 mg PO Q6 PRN; Protocol PRN Reason: Agitation Last Admin: 11/09/18 16:30 Dose: 20 mg Ziprasidone (Geodon Inj) 20 mg IM Q6 PRN; Protocol PRN Reason: Agitation - Labs Labs: 11/02/18 09:42 11/02/18 09:42 PT 11.3 SECONDS (9.4-12.5) 11/02/18 09:42 INR 0.98 11/02/18 09:42 APTT 27.8 Seconds (25.1-36.5) 11/02/18 09:42 - Constitutional Appears: No Acute Distress - Head Exam Head Exam: ATRAUMATIC, NORMOCEPHALIC - Respiratory Exam Respiratory Exam: Clear to Ausculation Bilateral, NORMAL BREATHING PATTERN - Cardiovascular Exam Cardiovascular Exam: REGULAR RHYTHM, +S1, +S2 - Extremities Exam Extremities Exam: Normal Inspection - Neurological Exam Neurological Exam: Alert, Awake Assessment and Plan - Assessment and Plan (Free Text) Assessment: HTN H/O CVA Neuropathy Asthma Plan: continue current management continue Norvasc and Toprol for hypertension blood pressure and heart rate are controlled
[2018-11-13] MEDS: Pantoprazole 40 mg EC Tab PO SCH (08:27)
[2018-11-13] MEDS: Metoprolol Succinate 50 mg XL Tab PO SCH (08:29)
--- NOTE | 2018-11-13 15:11 | PCM.PYCHPN ---
Psychiatric Progress Note - Psychiatric Progress Note Patient seen today, length of contact: 30min Patient Chief Complaint: "I am so-so" Problems Identified/Issues Discussed: Suicide/ homicide prevention, past psychiatric h/o, current psychiatric symptoms, medical problems, risk/benefits and alternatives of medications, medications compliance, coping strategies, substance abuse h/o, relapse prevention, importance of follow up with psychiatrist and therapist, discharge p azar. Medical Problems: 11/02/18 09:42 11/02/18 09:42 Lab Results 11/02/18 12:11: Urine Opiates Screen Negative, Urine Methadone Screen Negative, Ur Barbiturates Screen Negative, Ur Phencyclidine Scrn Negative, Ur Amphetamines Screen Negative, U Benzodiazepines Scrn Negative, U Oth Cocaine Metabols Negative, U Cannabinoids Screen Negative 11/02/18 09:42: Free T4 0.85, TSH 3rd Generation 1.19, Alcohol, Quantitative < 10 11/02/18 09:42: Salicylates < 1 L 11/02/18 09:42: Sodium 134, Chloride 96 L, Potassium 4.7, Carbon Dioxide 23, Anion Gap 20, BUN 13, Creatinine 0.6 L, Est GFR ( Amer) > 60, Est GFR (Non-Af Amer) > 60, Random Glucose 72, Calcium 9.8, Magnesium 1.8, Total Bilirubin 0.8, AST 35, ALT 32, Alkaline Phosphatase 98, Troponin I < 0.01, Total Protein 8.3, Albumin 4.6, Globulin 3.7, Albumin/Globulin Ratio 1.2, Lipase 40 11/02/18 09:42: pO2 41, VBG pH 7.31 L, VBG pCO2 44.0, VBG HCO3 22.2, VBG Total CO2 23.6, VBG O2 Sat (Calc) 78.4 H, VBG Base Excess -4.1 L, VBG Potassium 4.0, Sodium 132.0, Chloride 95.0 L, Glucose 72, Lactate 2.0, FiO2 21.0, Venous Blood Potassium 4.0 11/02/18 09:42: Urine Color Yellow, Urine Appearance Clear, Urine pH 6.0, Ur Specific [place] 1.020, Urine Protein Negative, Urine Glucose (UA) Negative, Urine Ketones >=80, Urine Blood Trace-intact H, Urine Nitrate Negative, Urine Bilirubin Negative, Urine Urobilinogen 0.2, Ur Leukocyte Esterase Negative, Urine RBC 1 - 3 H, Urine WBC 0 - 2, Ur Epithelial Cells 1 - 3, Urine Bacteria Few 11/02/18 09:42: PT 11.3, INR 0.98, APTT 27.8 11/02/18 09:42: WBC 7.9, RBC 4.24, Hgb 12.3, Hct 37.1, MCV 87.5, MCH 29.0, MCHC 33.2, RDW 14.7 H, Plt Count 341, MPV 9.2, Gran % 64.8, Lymph % (Auto) 24.6, [place] % (Auto) 9.6 H, Eos % (Auto) 0.1 L, Baso % (Auto) 0.9, Gran # 5.09, Lymph # (Auto) 1.9, [place] # (Auto) 0.8 H, Eos # (Auto) 0.0, Baso # (Auto) 0.07 Vital Signs Temp Pulse Pulse Resp BP Pulse Ox 11/04/18 09:29 81 17 122/93 H 11/04/18 08:40 92 H 142/105 H 11/04/18 08:38 92 H 142/105 H 11/04/18 07:08 98.5 F 92 H 20 142/105 H 11/04/18 07:05 98.5 F 92 H 20 142/105 H 11/03/18 16:00 81 123/89 11/03/18 09:48 89 153/102 H 11/03/18 07:34 98.6 F 89 22 153/102 H 11/02/18 18:48 94 H 18 11/02/18 15:23 97.9 F 84 18 124/75 99 11/02/18 15:21 97.9 F 84 18 124/75 99 11/02/18 11:41 93 H 18 122/79 97 11/02/18 08:48 98.7 F 92 H 18 135/88 99 Diagnostic Results: Patient was seen by medical team as well as neurology team Discussed with Dr. Thompson B12 level was ordered, TSH and free T4 is down, CT scan of the head with no contrast DSM 5 Symptoms Update: shortly, pt is 58 year old female, self reported h/o depression and anxiety, one previous psychiatric admission, 2 previous suicidal attempts, first 1 was at age of 18 patient overdosed on alcohol and pills, patient was admitted to ICU for 7 days then stayed in to the psychiatric inpatient unit for 3 weeks, second suicidal attempt was about 7 years ago, patient overdosed on pills, patient reported lives in [place], came to [place] visiting her family, patient is not sure how she ended up in [place], patient reported that she called 911 because she was feeling depressed and anxious. In the emergency room patient was initially complaining of abdominal pain, nausea, vomiting, patient also reported that she is depressed that is why psychiatric services were i nvolved. Patient was admitted for evaluation and stabilization of depressive symptoms, anxiety, possible suicidal ideation with a plan to shotgun, patient denied access to any guns. Patient was seen and examined today next to the nursing station. patient presented with some improvements with her mood, still has difficulties to express herself today patient reported that she slept better, and her mood is "so-so", when this teletypewriter operator compare pt prior to admission, pt said "oh yes I am better". In regards of anxiety, patient is not asking for Vistaril, patient is using Ativan only twice a day, will start tapering down Ativan. Patient reported slept well, patient denied hearing voices, denied seeing things. pt reported that she has low energy, hopelessness and helplessness. as per staff pt is visible in the unit, watch TV, very passive in regards of making a phone calls and f/u plan pt has good appetite pt tolerates meds well, no side effects observed or reported, AIMS 0, no EPS Patient was accepted to boarding home, but patient does not know how she feels about it. Impression: r/o MDD r/o DAVID Medication Change: Yes (Ativan decreased, Vistaril decreased) Medical Record Reviewed: Yes Mental Status Examination - Cognitive Function Orientation: Person, Place, Situation, Time Memory: Impaired Attention: Poor Concentration: Poor Association: Loose Fund of Knowledge: Poor - Mood Mood: Depressed (better), Anxious - Affect Affect: Constricted, Flat - Speech Speech: Appropriate - Formal Thought Process Formal Thought Process: No Impairment - Suicidal Ideation Suicidal Ideation: No - Homicidal Ideation Homicidal Ideation: No Goal/Treatment Plan - Goal/Treatment Plan Need for Continued Stay: Remain at risks for inpatient hospitalization, Severe depression anxiety, Discharge may exacerbated symptoms, Severe functional impairment Progress Toward Problem(s) and Goals/Treatment Plan: Milieu/structure/supportive therapy Medical consult appreciated, see medical team note for more detailed info SW consultation for discharge plan and social issues Med management As per patient she fills medication in [facility] [phone], but as per record patient never filled any medication there Zoloft 200 mg daily for depression and anxiety Vistaril discontinued because last time patient used Vistaril was on 11 November 2018 chantalata resumed seroquel 100mg po a.m. and at bedtime for mood stabilization Family involvement Follow up on labs Will monitor closely Pt was educated about risk/benefits and alternatives of medications, coping strategies (safety plan, suicide prevention), relapse prevention, importance of follow up with psychiatrist and therapist, stay away from drugs/alcohol/smoking Estimated Date of D/C: 11/15/18
--- NOTE | 2018-11-14 09:26 | CP.PCM.PN ---
Subjective - Date & Time of Evaluation Date of Evaluation: 11/14/18 Time of Evaluation: 08:00 - Subjective Subjective: Patient seen this morning. She is in the behavioral unit for depression Objective - Vital Signs/Intake and Output Vital Signs (last 24 hours): Temp Pulse Resp BP Pulse Ox 97.6 F 71 20 124/81 99 11/14/18 07:17 11/14/18 07:17 11/14/18 07:17 11/14/18 07:17 11/02/18 15:23 - Medications Medications: Current Medications Acetaminophen (Tylenol 325mg Tab) 650 mg PO Q6H PRN PRN Reason: Pain, moderate (4-7) Last Admin: 11/13/18 20:52 Dose: 650 mg Al Hydrox/Mg Hydrox/Simethicone (Maalox Plus 30 Ml) 30 ml PO DAILY PRN PRN Reason: Indigestion / Heartburn Last Admin: 11/06/18 08:32 Dose: 30 ml Amlodipine Besylate (Norvasc) 5 mg PO DAILY [facility] Last Admin: 11/13/18 08:30 Dose: 5 mg Aspirin (Aspirin Chewable) 81 mg PO DAILY [facility] Last Admin: 11/13/18 08:27 Dose: 81 mg Atorvastatin Calcium (Lipitor) 10 mg PO DIN [facility] Last Admin: 11/13/18 16:07 Dose: 10 mg Clopidogrel Bisulfate (Plavix) 75 mg PO DAILY [facility] Last Admin: 11/13/18 08:27 Dose: 75 mg Docusate Sodium (Colace) 100 mg PO BID [facility] Last Admin: 11/13/18 16:07 Dose: 100 mg Lorazepam (Ativan) 1 mg IM Q6H PRN; Protocol PRN Reason: Anxiety Lorazepam (Ativan) 0.5 mg PO BID PRN; Protocol PRN Reason: Anxiety Last Admin: 11/14/18 07:45 Dose: 0.5 mg Magnesium Hydroxide (Milk Of Magnesia) 30 ml PO DAILY PRN PRN Reason: Constipation Metoprolol Succinate (Toprol Xl) 50 mg PO BRK [facility] Last Admin: 11/13/18 08:29 Dose: 50 mg Nicotine (Nicoderm Cq) 1 patch TD DAILY [facility] Last Admin: 11/13/18 08:27 Dose: 1 patch Pantoprazole Sodium (Protonix Ec Tab) 40 mg PO DAILY [facility] Last Admin: 11/13/18 08:27 Dose: 40 mg Pregabalin (Lyrica) 50 mg PO TID [facility] Last Admin: 11/13/18 17:51 Dose: 50 mg Quetiapine Fumarate (Seroquel) 100 mg PO HS [facility]; Protocol Last Admin: 11/13/18 22:28 Dose: 100 mg Quetiapine Fumarate (Seroquel) 100 mg PO DAILY [facility]; Protocol Last Admin: 11/13/18 08:29 Dose: 100 mg Sertraline HCl (Zoloft) 200 mg PO DAILY [facility] Last Admin: 11/13/18 08:29 Dose: 200 mg Ursodiol (Actigall) 300 mg PO BID [facility] Last Admin: 11/13/18 16:07 Dose: 300 mg Zaleplon (Sonata) 10 mg PO HS [facility] Last Admin: 11/13/18 22:28 Dose: 10 mg Ziprasidone (Geodon Cap) 20 mg PO Q6 PRN; Protocol PRN Reason: Agitation Last Admin: 11/09/18 16:30 Dose: 20 mg Ziprasidone (Geodon Inj) 20 mg IM Q6 PRN; Protocol PRN Reason: Agitation - Labs Labs: 11/02/18 09:42 11/02/18 09:42 PT 11.3 SECONDS (9.4-12.5) 11/02/18 09:42 INR 0.98 11/02/18 09:42 APTT 27.8 Seconds (25.1-36.5) 11/02/18 09:42 - Constitutional Appears: No Acute Distress - Head Exam Head Exam: ATRAUMATIC, NORMOCEPHALIC - Respiratory Exam Respiratory Exam: Clear to Ausculation Bilateral, NORMAL BREATHING PATTERN - Cardiovascular Exam Cardiovascular Exam: REGULAR RHYTHM, +S1, +S2 - GI/Abdominal Exam GI & Abdominal Exam: Soft, Normal Bowel Sounds. absent: Tenderness - Extremities Exam Extremities Exam: Normal Inspection - Neurological Exam Neurological Exam: Alert, Awake, Oriented x3 Assessment and Plan - Assessment and Plan (Free Text) Assessment: HTN HLP H/O CVA Constipation Plan: continue current medications continue colace for constipation continue behavioral care treatment as per Dr. Moore guest services representative working on placing patient in a assisted
[2018-11-14] MEDS: Metoprolol Succinate 50 mg XL Tab PO SCH (10:42)
[2018-11-14] MEDS: Pantoprazole 40 mg EC Tab PO SCH (10:43)
--- NOTE | 2018-11-14 12:59 | PCM.PYCHPN ---
Psychiatric Progress Note - Psychiatric Progress Note Patient seen today, length of contact: 30min Patient Chief Complaint: "I not sleeping, but overall better..." Problems Identified/Issues Discussed: Suicide/ homicide prevention, past psychiatric h/o, current psychiatric symptoms, medical problems, risk/benefits and alternatives of medications, medications compliance, coping strategies, substance abuse h/o, relapse prevention, importance of follow up with psychiatrist and therapist, discharge plan. Medical Problems: 11/02/18 09:42 11/02/18 09:42 Lab Results 11/02/18 12:11: Urine Opiates Screen Negative, Urine Methadone Screen Negative, Ur Barbiturates Screen Negative, Ur Phencyclidine Scrn Negative, Ur Amphetamines Screen Negative, U Benzodiazepines Scrn Negative, U Oth Cocaine Metabols Negative, U Cannabinoids Screen Negative 11/02/18 09:42: Free T4 0.85, TSH 3rd Generation 1.19, Alcohol, Quantitative < 10 11/02/18 09:42: Salicylates < 1 L 11/02/18 09:42: Sodium 134, Chloride 96 L, Potassium 4.7, Carbon Dioxide 23, Anion Gap 20, BUN 13, Creatinine 0.6 L, Est GFR ( Amer) > 60, Est GFR (Non-Af Amer) > 60, Random Glucose 72, Calcium 9.8, Magnesium 1.8, Total Bilirubin 0.8, AST 35, ALT 32, Alkaline Phosphatase 98, Troponin I < 0.01, Total Protein 8.3, Albumin 4.6, Globulin 3.7, Albumin/Globulin Ratio 1.2, Lipase 40 11/02/18 09:42: pO2 41, VBG pH 7.31 L, VBG pCO2 44.0, VBG HCO3 22.2, VBG Total CO2 23.6, VBG O2 Sat (Calc) 78.4 H, VBG Base Excess -4.1 L, VBG Potassium 4.0, Sodium 132.0, Chloride 95.0 L, Glucose 72, Lactate 2.0, FiO2 21.0, Venous Blood Potassium 4.0 11/02/18 09:42: Urine Color Yellow, Urine Appearance Clear, Urine pH 6.0, Ur Specific [place] 1.020, Urine Protein Negative, Urine Glucose (UA) Negative, Urine Ketones >=80, Urine Blood Trace-intact H, Urine Nitrate Negative, Urine Bilirubin Negative, Urine Urobilinogen 0.2, Ur Leukocyte Esterase Negative, Urine RBC 1 - 3 H, Urine WBC 0 - 2, Ur Epithelial Cells 1 - 3, Urine Bacteria Few 11/02/18 09:42: PT 11.3, INR 0.98, APTT 27.8 11/02/18 09:42: WBC 7.9, RBC 4.24, Hgb 12.3, Hct 37.1, MCV 87.5, MCH 29.0, MCHC 33.2, RDW 14.7 H, Plt Count 341, MPV 9.2, Gran % 64.8, Lymph % (Auto) 24.6, [place] % (Auto) 9.6 H, Eos % (Auto) 0.1 L, Baso % (Auto) 0.9, Gran # 5.09, Lymph # (Auto) 1.9, [place] # (Auto) 0.8 H, Eos # (Auto) 0.0, Baso # (Auto) 0.07 Vital Signs Temp Pulse Pulse Resp BP Pulse Ox 11/04/18 09:29 81 17 122/93 H 11/04/18 08:40 92 H 142/105 H 11/04/18 08:38 92 H 142/105 H 11/04/18 07:08 98.5 F 92 H 20 142/105 H 11/04/18 07:05 98.5 F 92 H 20 142/105 H 11/03/18 16:00 81 123/89 11/03/18 09:48 89 153/102 H 11/03/18 07:34 98.6 F 89 22 153/102 H 11/02/18 18:48 94 H 18 11/02/18 15:23 97.9 F 84 18 124/75 99 11/02/18 15:21 97.9 F 84 18 124/75 99 11/02/18 11:41 93 H 18 122/79 97 11/02/18 08:48 98.7 F 92 H 18 135/88 99 Diagnostic Results: Patient was seen by medical team as well as neurology team Discussed with Dr. Thompson B12 level was ordered, TSH and free T4 is down, CT scan of the head with no contrast DSM 5 Symptoms Update: shortly, pt is 58 year old female, self reported h/o depression and anxiety, one previous psychiatric admission, 2 previous suicidal attempts, first 1 was at age of 18 patient overdosed on alcohol and pills, patient was admitted to ICU for 7 days then stayed in to the psychiatric inpatient unit for 3 weeks, second suicidal attempt was about 7 years ago, patient overdosed on pills, patient reported lives in [place], came to [place] visiting her family, patient is not sure how she ended up in [place], patient reported that she called 911 because she was feeling depressed and anxious. In the emergency room patient was initially complaining of abdominal pain, nausea, vomiting, patient also reported that she is depressed that is why psychiatric services were involved. Patient was admitted for evaluation and stabilization of depressive symptoms, anxiety, possible suicidal ideation with a plan to shotgun, patient denied access to any guns. Patient was seen and examined today at the dining area, patient appears to be positive from her treatment, usually sitting in the chair, watching TV all day long. Patient reported that she still has difficulty to fall asleep and to stay asleep, but overall "I feel much better". patient presented with some improvements with her mood, still has difficulties to express herself probably due to poor vocabulary and some learning challenges, in regards of anxiety, patient is not asking for Vistaril, patient is using Ativan only twice a day, will start tapering down Ativan. patient denied hearing voices, denied seeing things. pt reported that she has low energy, hopelessness and helplessness. as per staff pt is visible in the unit, watch TV, very passive in regards of making a phone calls and f/u plan pt has good appetite pt tolerates meds well, no side effects observed or reported, AIMS 0, no EPS Patient was accepted to boarding home, but patient does not know how she feels about it. Impression: r/o MDD r/o DAVID Medication Change: Yes (Ativan decreased, Vistaril decreased) Medical Record Reviewed: Yes Mental Status Examination - Cognitive Function Orientation: Person, Place, Situation, Time Memory: Impaired Attention: Poor Concentration: Poor Association: Loose Fund of Knowledge: Poor - Mood Mood: Depressed (better), Anxious - Affect Affect: Constricted, Flat - Speech Speech: Appropriate - Formal Thought Process Formal Thought Process: No Impairment - Suicidal Ideation Suicidal Ideation: No - Homicidal Ideation Homicidal Ideation: No Goal/Treatment Plan - Goal/Treatment Plan Need for Continued Stay: Remain at risks for inpatient hospitalization, Severe depression anxiety, Discharge may exacerbated symptoms, Severe functional impairment Progress Toward Problem(s) and Goals/Treatment Plan: Milieu/structure/supportive therapy Medical consult appreciated, see medical team note for more detailed info SW consultation for discharge plan and social issues Med management As per patient she fills medication in [facility] [phone], but as per record patient never filled any medication there Zoloft 200 mg daily for depression and anxiety Vistaril discontinued because last time patient used Vistaril was on 11 November 2018 sonata resumed seroquel 100mg po a.m. and at bedtime for mood stabilization Family involvement Follow up on labs Will monitor closely Pt was educated about risk/benefits and alternatives of medications, coping strategies (safety plan, suicide prevention), relapse prevention, importance of follow up with psychiatrist and therapist, stay away from drugs/alcohol/smoking Estimated Date of D/C: 11/16/18
[2018-11-15] MEDS: Metoprolol Succinate 50 mg XL Tab PO SCH (10:21)
[2018-11-15] MEDS: Pantoprazole 40 mg EC Tab PO SCH (10:23)
--- NOTE | 2018-11-15 14:56 | PCM.PYCHPN ---
Psychiatric Progress Note - Psychiatric Progress Note Patient seen today, length of contact: 30min Patient Chief Complaint: "I feel very anxious" Problems Identified/Issues Discussed: Suicide/ homicide prevention, past psychiatric h/o, current psychiatric symptoms, medical problems, risk/benefits and alternatives of medications, medications compliance, coping strategies, substance abuse h/o, relapse prevention, importance of follow up with psychiatrist and therapist, discharge plan. Medical Problems: 11/02/18 09:42 11/02/18 09:42 Lab Results 11/02/18 12:11: Urine Opiates Screen Negative, Urine Methadone Screen Negative, Ur Barbiturates Screen Negative, Ur Phencyclidine Scrn Negative, Ur Amphetamines Screen Negative, U Benzodiazepines Scrn Negative, U Oth Cocaine Metabols Negative, U Cannabinoids Screen Negative 11/02/18 09:42: Free T4 0.85, TSH 3rd Generation 1.19, Alcohol, Quantitative < 10 11/02/18 09:42: Salicylates < 1 L 11/02/18 09:42: Sodium 134, Chloride 96 L, Potassium 4.7, Carbon Dioxide 23, Anion Gap 20, BUN 13, Creatinine 0.6 L, Est GFR ( Amer) > 60, Est GFR (Non-Af Amer) > 60, Random Glucose 72, Calcium 9.8, Magnesium 1.8, Total Bilirubin 0.8, AST 35, ALT 32, Alkaline Phosphatase 98, Troponin I < 0.01, Total Protein 8.3, Albumin 4.6, Globulin 3.7, Albumin/Globulin Ratio 1.2, Lipase 40 11/02/18 09:42: pO2 41, VBG pH 7.31 L, VBG pCO2 44.0, VBG HCO3 22.2, VBG Total CO2 23.6, VBG O2 Sat (Calc) 78.4 H, VBG Base Excess -4.1 L, VBG Potassium 4.0, Sodium 132.0, Chloride 95.0 L, Glucose 72, Lactate 2.0, FiO2 21.0, Venous Blood Potassium 4.0 11/02/18 09:42: Urine Color Yellow, Urine Appearance Clear, Urine pH 6.0, Ur Specific [place] 1.020, Urine Protein Negative, Urine Glucose (UA) Negative, Urine Ketones >=80, Urine Blood Trace-intact H, Urine Nitrate Negative, Urine Bilirubin Negative, Urine Urobilinogen 0.2, Ur Leukocyte Esterase Negative, Urine RBC 1 - 3 H, Urine WBC 0 - 2, Ur Epithelial Cells 1 - 3, Urine Bacteria Few 11/02/18 09:42: PT 11.3, INR 0.98, APTT 27.8 11/02/18 09:42: WBC 7.9, RBC 4.24, Hgb 12.3, Hct 37.1, MCV 87.5, MCH 29.0, MCHC 33.2, RDW 14.7 H, Plt Count 341, MPV 9.2, Gran % 64.8, Lymph % (Auto) 24.6, [place] % (Auto) 9.6 H, Eos % (Auto) 0.1 L, Baso % (Auto) 0.9, Gran # 5.09, Lymph # (Auto) 1.9, [place] # (Auto) 0.8 H, Eos # (Auto) 0.0, Baso # (Auto) 0.07 Vital Signs Temp Pulse Pulse Resp BP Pulse Ox 11/04/18 09:29 81 17 122/93 H 11/04/18 08:40 92 H 142/105 H 11/04/18 08:38 92 H 142/105 H 11/04/18 07:08 98.5 F 92 H 20 142/105 H 11/04/18 07:05 98.5 F 92 H 20 142/105 H 11/03/18 16:00 81 123/89 11/03/18 09:48 89 153/102 H 11/03/18 07:34 98.6 F 89 22 153/102 H 11/02/18 18:48 94 H 18 11/02/18 15:23 97.9 F 84 18 124/75 99 11/02/18 15:21 97.9 F 84 18 124/75 99 11/02/18 11:41 93 H 18 122/79 97 11/02/18 08:48 98.7 F 92 H 18 135/88 99 Diagnostic Results: Patient was seen by medical team as well as neurology team Discussed with Dr. Thompson B12 level was ordered, TSH and free T4 is down, CT scan of the head with no contrast DSM 5 Symptoms Update: shortly, pt is 58 year old female, self reported h/o depression and anxiety, one previous psychiatric admission, 2 previous suicidal attempts, first 1 was at age of 18 patient overdosed on alcohol and pills, patient was admitted to ICU for 7 days then stayed in to the psychiatric inpatient unit for 3 weeks, second suicidal attempt was about 7 years ago, patient overdosed on pills, patient reported lives in [place], came to [place] visiting her family, patient is not sure how she ended up in [place], patient reported that she called 911 because she was feeling depressed and anxious. In the emergency room patient was initially complaining of abdominal pain, nausea, vomiting, patient also reported that she is depressed that is why psychiatric services were involved. Patient was admitted for evaluation and stabilization of depressive symptoms, anxiety, possible suicidal ideation with a plan to shotgun, patient denied access to any guns. Patient was seen and examined today at the dining area, correction to my previous note, "patient appears to be positive from her treatment" should be read as PATIENT APPEARS TO BE PASSIVE FOR HER TREATMENT, usually sitting in the chair, watching TV all day long, disengaged, not interested to make any phone calls, not interested to participate in unit activities, just observing. Patient reported that she still has difficulty to fall asleep and to stay asleep, but overall "I feel much better", pt complained of anxiety today to be resumed. patient still has difficulties to express herself probably due to poor vocabulary and some learning challenges. patient denied hearing voices, denied seeing things. pt reported that she has low energy, hopelessness and helplessness. as per staff pt is visible in the unit, watch TV, very passive in regards of making a phone calls and f/u plan pt has good appetite pt tolerates meds well, no side effects observed or reported, AIMS 0, no EPS Patient was accepted to boarding home, but patient does not know how she feels about it. Impression: r/o MDD r/o DAVID Medication Change: Yes (Ativan decreased, Vistaril decreased) Medical Record Reviewed: Yes Mental Status Examination - Cognitive Function Orientation: Person, Place, Situation, Time Memory: Impaired Attention: Poor Concentration: Poor Association: Loose Fund of Knowledge: Poor - Mood Mood: Depressed (better), Anxious - Affect Affect: Constricted, Flat - Speech Speech: Appropriate - Formal Thought Process Formal Thought Process: No Impairment - Suicidal Ideation Suicidal Ideation: No - Homicidal Ideation Homicidal Ideation: No Goal/Treatment Plan - Goal/Treatment Plan Need for Continued Stay: Remain at risks for inpatient hospitalization, Severe depression anxiety, Discharge may exacerbated symptoms, Severe functional impairment Progress Toward Problem(s) and Goals/Treatment Plan: Milieu/structure/supportive therapy Medical consult appreciated, see medical team note for more detailed info SW consultation for discharge plan and social issues Med management As per patient she fills medication in [facility] [phone], but as per record patient never filled any medication there Zoloft 200 mg daily for depression and anxiety Vistaril 50 mg 3 times a day was resumed sonata resumed seroquel 100mg po a.m. and at bedtime for mood stabilization Family involvement Follow up on labs Will monitor closely Pt was educated about risk/benefits and alternatives of medications, coping strategies (safety plan, suicide prevention), relapse prevention, importance of follow up with psychiatrist and therapist, stay away from drugs/alcohol/smoking Estimated Date of D/C: 11/19/18
[2018-11-16 08:54] LABS: BASO # 0.1 K/mm3 (0.0-2.0); BASO % 1.4 % (0.0-3.0); EOS # 0.5 (0.0-0.7); EOS % 6.2 % (1.5-5.0); HEMOGLOBIN 13.2 g/dL (12.0-16.0); LYMPH # 2.6 (1.2-3.4); LYMPH % 35.8 % (22.0-35.0); MEAN CELL VOLUME 89.4 fl (80.0-105.0); MEAN CORPUSCULAR HEMOGLOBIN 28.6 pg (25.0-35.0); MEAN PLATELET VOLUME 9.5 fl (7.0-11.0); MONO # 0.5 (0.1-0.6); MONO % 7.1 % (1.0-6.0); RBC 4.62 10^6/uL (3.5-6.1); RED CELL DISTRIBUTION WIDTH 15.1 % (11.5-14.5); WHITE BLOOD COUNT 7.3 10^3/uL (4.5-11.0)
[2018-11-16 09:25] LABS: ALB/GLOB RATIO 1.1 (1.1-1.8); ALBUMIN 4.4 g/dL (3.0-4.8); ALT/SGPT 17 U/L (7-56); AST/SGOT 21 U/L (14-36); BLOOD UREA NITROGEN 24 mg/dL (7-21); CALCIUM 9.9 mg/dL (8.4-10.5); GFR NON-AFRICAN AMERICAN > 60
[2018-11-16] MEDS: Pantoprazole 40 mg EC Tab PO SCH (09:37)
[2018-11-16] MEDS: Metoprolol Succinate 50 mg XL Tab PO SCH (09:38)
--- NOTE | 2018-11-16 11:35 | PN ---
DATE: 11/16/2018 LOCATION: The patient is in [facility], Behavioral Care Unit, room 519, bed 2. SUBJECTIVE: The patient is a 58-year-old female who was admitted with depression, history of chronic lung disease. The patient has a history of coronary artery disease, cerebrovascular disease, hyperlipidemia, and hypertension. The patient was seen this morning. She is resting in bed. She has no acute complaints. PHYSICAL EXAMINATION: VITAL SIGNS: Pulse 65, blood pressure 96/60, respirations 20. The patient is afebrile. LUNGS: The patient's lungs are clear. HEART: Normal sinus rhythm. S1 and S2 present. ABDOMEN: Soft. Liver and spleen not palpable. No tenderness. CENTRAL NERVOUS SYSTEM: The patient has no focal neurological deficit. MEDICATIONS: The patient is on Actigall for cholelithiasis. The patient has aspirin. She is on Ativan, Geodon p.r.n., Lipitor, Plavix, Lyrica, nicotine patch, amlodipine, pantoprazole, Seroquel, Sonata for sleep, metoprolol for blood pressure. The patient's diet is heart healthy diet. ASSESSMENT AND PLAN: She is clinically improved. We will continue with medical management. Jose Alfredo Bolanos MD MTDAlex
--- NOTE | 2018-11-16 16:27 | PCM.PYCHPN ---
Psychiatric Progress Note - Psychiatric Progress Note Patient seen today, length of contact: 30min Patient Chief Complaint: "I feel little better" Problems Identified/Issues Discussed: Suicide/ homicide prevention, past psychiatric h/o, current psychiatric symptoms, medical problems, risk/benefits and alternatives of medications, medications compliance, coping strategies, substance abuse h/o, relapse prevention, importance of follow up with psychiatrist and therapist, discharge plan. Medical Problems: 11/02/18 09:42 11/02/18 09:42 Lab Results 11/02/18 12:11: Urine Opiates Screen Negative, Urine Methadone Screen Negative, Ur Barbiturates Screen Negative, Ur Phencyclidine Scrn Negative, Ur Amphetamines Screen Negative, U Benzodiazepines Scrn Negative, U Oth Cocaine Metabols Negative, U Cannabinoids Screen Negative 11/02/18 09:42: Free T4 0.85, TSH 3rd Generation 1.19, Alcohol, Quantitative < 10 11/02/18 09:42: Salicylates < 1 L 11/02/18 09:42: Sodium 134, Chloride 96 L, Potassium 4.7, Carbon Dioxide 23, Anion Gap 20, BUN 13, Creatinine 0.6 L, Est GFR ( Amer) > 60, Est GFR (Non-Af Amer) > 60, Random Glucose 72, Calcium 9.8, Magnesium 1.8, Total Bilirubin 0.8, AST 35, ALT 32, Alkaline Phosphatase 98, Troponin I < 0.01, Total Protein 8.3, Albumin 4.6, Globulin 3.7, Albumin/Globulin Ratio 1.2, Lipase 40 11/02/18 09:42: pO2 41, VBG pH 7.31 L, VBG pCO2 44.0, VBG HCO3 22.2, VBG Total CO2 23.6, VBG O2 Sat (Calc) 78.4 H, VBG Base Excess -4.1 L, VBG Potassium 4.0, Sodium 132.0, Chloride 95.0 L, Glucose 72, Lactate 2.0, FiO2 21.0, Venous Blood Potassium 4.0 11/02/18 09:42: Urine Color Yellow, Urine Appearance Clear, Urine pH 6.0, Ur Specific [place] 1.020, Urine Protein Negative, Urine Glucose (UA) Negative, Urine Ketones >=80, Urine Blood Trace-intact H, Urine Nitrate Negative, Urine Bilirubin Negative, Urine Urobilinogen 0.2, Ur Leukocyte Esterase Negative, Urine RBC 1 - 3 H, Urine WBC 0 - 2, Ur Epithelial Cells 1 - 3, Urine Bacteria Few 11/02/18 09:42: PT 11.3, INR 0.98, APTT 27.8 11/02/18 09:42: WBC 7.9, RBC 4.24, Hgb 12.3, Hct 37.1, MCV 87.5, MCH 29.0, MCHC 33.2, RDW 14.7 H, Plt Count 341, MPV 9.2, Gran % 64.8, Lymph % (Auto) 24.6, Hill % (Auto) 9.6 H, Eos % (Auto) 0.1 L, Baso % (Auto) 0.9, Gran # 5.09, Lymph # (Auto) 1.9, Hill # (Auto) 0.8 H, Eos # (Auto) 0.0, Baso # (Auto) 0.07 Vital Signs Temp Pulse Pulse Resp BP Pulse Ox 11/04/18 09:29 81 17 122/93 H 11/04/18 08:40 92 H 142/105 H 11/04/18 08:38 92 H 142/105 H 11/04/18 07:08 98.5 F 92 H 20 142/105 H 11/04/18 07:05 98.5 F 92 H 20 142/105 H 11/03/18 16:00 81 123/89 11/03/18 09:48 89 153/102 H 11/03/18 07:34 98.6 F 89 22 153/102 H 11/02/18 18:48 94 H 18 11/02/18 15:23 97.9 F 84 18 124/75 99 11/02/18 15:21 97.9 F 84 18 124/75 99 11/02/18 11:41 93 H 18 122/79 97 11/02/18 08:48 98.7 F 92 H 18 135/88 99 Abnormal Lab Results 11/16/18 11/16/18 08:40 08:40 WBC 7.3 RBC 4.62 Hgb 13.2 Hct 41.3 MCV 89.4 MCH 28.6 MCHC 32.0 RDW 15.1 H Plt Count 409 MPV 9.5 Neut % (Auto) 49.5 L Lymph % (Auto) 35.8 H Hill % (Auto) 7.1 H Eos % (Auto) 6.2 H Baso % (Auto) 1.4 Lymph # (Auto) 2.6 Hill # (Auto) 0.5 Eos # (Auto) 0.5 Baso # (Auto) 0.10 Absolute Neuts (auto) 3.62 Sodium 141 Potassium 4.2 Chloride 103 Carbon Dioxide 28 Anion Gap 14 BUN 24 H Creatinine 0.8 Est GFR ( Amer) > 60 Est GFR (Non-Af Amer) > 60 Random Glucose 98 Calcium 9.9 Total Bilirubin 0.3 AST 21 ALT 17 Alkaline Phosphatase 76 Total Protein 8.6 H Albumin 4.4 Globulin 4.2 Albumin/Globulin Ratio 1.1 Diagnostic Results: Patient was seen by medical team as well as neurology team Discussed with Dr. Thompson B12 level was ordered, TSH and free T4 is down, CT scan of the head with no contrast CT of the abdomen was within normal DSM 5 Symptoms Update: shortly, pt is 58 year old female, self reported h/o depression and anxiety, one previous psychiatric admission, 2 previous suicidal attempts, first 1 was at age of 18 patient overdosed on alcohol and pills, patient was admitted to ICU for 7 days then stayed in to the psychiatric inpatient unit for 3 weeks, second suicidal attempt was about 7 years ago, patient overdosed on pills, patient reported lives in [place], came to [place] visiting her family, patient is not sure how she ended up in [place], patient reported that she called 911 because she was feeling depressed and anxious. In the emergency room patient was initially complaining of abdominal pain, nausea, vomiting, patient also reported that she is depressed that is why psychiatric services were involved. Patient was admitted for evaluation and stabilization of depressive symptoms, anxiety, possible suicidal ideation with a plan to shotgun, patient denied access to any guns. Patient was seen and examined today at the dining area, PATIENT APPEARS TO BE PASSIVE IN HER TREATMENT, usually sitting in the chair, watching TV all day long, disengaged, not interested to make any phone calls, not interested to participate in unit activities, just observing. Patient reported that today "I feel little better", patient reported that she slept through the night, patient denied any thoughts of harming himself or others. Patient has some future oriented plans to be discharged to [facility] this coming Thursday. patient still has difficulties to express herself probably due to poor vocabulary and some learning challenges. patient denied hearing voices, denied seeing things. as per staff pt is visible in the unit, watch TV, very passive in regards of making a phone calls and f/u plan pt has good appetite pt tolerates meds well, no side effects observed or reported, AIMS 0, no EPS Patient was accepted to boarding home, but patient does not know how she feels about it. Impression: r/o MDD r/o DAVID Medication Change: Yes (Ativan decreased, Vistaril decreased) Medical Record Reviewed: Yes Consults ordered or reviewed: medical and GI consults called Neurology consult appreciated Mental Status Examination - Cognitive Function Orientation: Person, Place, Situation, Time Memory: Impaired Attention: Poor (Some improvement) Concentration: Poor (, Improvement) Association: Loose Fund of Knowledge: Poor - Mood Mood: Depressed (better), Anxious - Affect Affect: Constricted, Flat - Speech Speech: Appropriate - Formal Thought Process Formal Thought Process: No Impairment - Suicidal Ideation Suicidal Ideation: No - Homicidal Ideation Homicidal Ideation: No Goal/Treatment Plan - Goal/Treatment Plan Need for Continued Stay: Remain at risks for inpatient hospitalization, Severe depression anxiety, Discharge may exacerbated symptoms, Severe functional impairment Progress Toward Problem(s) and Goals/Treatment Plan: Milieu/structure/supportive therapy Medical consult appreciated, see medical team note for more detailed info SW consultation for discharge plan and social issues Med management As per patient she fills medication in [place] [facility] [phone], but as per record patient never filled any medication there Zoloft 200 mg daily for depression and anxiety Vistaril 50 mg 3 times a day was resumed sonata resumed seroquel 100mg po a.m. and at bedtime for mood stabilization Family involvement Follow up on labs Will monitor closely Pt was educated about risk/benefits and alternatives of medications, coping strategies (safety plan, suicide prevention), relapse prevention, importance of follow up with psychiatrist and therapist, stay away from drugs/alcohol/smoking Estimated Date of D/C: 11/19/18
[2018-11-17] MEDS: Pantoprazole 40 mg EC Tab PO SCH (08:59)
[2018-11-17] MEDS: Metoprolol Succinate 50 mg XL Tab PO SCH (09:00)
--- NOTE | 2018-11-17 11:38 | PN ---
DATE: 11/17/2018 LOCATION: The patient is seen in [facility], Behavioral Care Unit. SUBJECTIVE: The patient has been on observation. She has depression. She has history of chronic lung disease, coronary artery disease, cerebrovascular disease, and hypertension. PHYSICAL EXAMINATION: VITAL SIGNS: This morning; the pulse is 70, blood pressure is 120/80, respirations are 20. HEENT: The patient's head is normocephalic. NECK: Thyroid is not enlarged. JVP is flat. LUNGS: Clear. HEART: Normal sinus rhythm. S1 and S2 present. No murmur. ABDOMEN: Soft. Liver and spleen not palpable. CENTRAL NERVOUS SYSTEM: No focal deficit. MEDICATIONS: The patient medications were reviewed, these are not changed from yesterday. LABORATORY DATA: The patient has lab work done, the white count is 7,000. The patient's differential shows 49% neutrophils, 35% lymphocytes with 7% monocytes, eosinophils, she has 6.2%. ASSESSMENT AND PLAN: The patient's condition is clinically stable. She has no acute symptoms at this time. She was evaluated for abdominal pain with cholelithiasis. She is on Actigall and the stones seem to have been resolved at this time. We will continue current management and followup medically. Jose Alfredo Bolanos MD MTDD
--- NOTE | 2018-11-17 12:50 | PCM.PYCHPN ---
Psychiatric Progress Note - Psychiatric Progress Note Patient seen today, length of contact: 30min Problems Identified/Issues Discussed: I reviewed recent notes, patient is familiar to me from prior interviews during this admission. She remembers me and appears friendly I meet with her. She rem ains oriented x3. Patient reports feeling "okay, still anxious", a little felix today because she has "been up since 2 am". In general patient feels she is "getting better, eating fine". She denies any side effects new discomfort or pain. Patient has been visible on the unit and engages in some activities. She likes to watch tv. Staff notes indicate that patient appears to be slowly improving t antwon she still seems unmotivated. Diagnostic Results: r/o MDD r/o DAVID Medication Change: Yes (Sonata increased to 15 mg po HS) Medical Record Reviewed: Yes Mental Status Examination - Cognitive Function Orientation: Person, Place, Situation, Time Memory: Impaired Attention: Poor (Some improvement) Concentration: Poor (, Improvement) Association: Loose Fund of Knowledge: Poor - Mood Mood: Depressed (better), Anxious - Affect Affect: Constricted, Flat - Speech Speech: Appropriate - Formal Thought Process Formal Thought Process: No Impairment - Suicidal Ideation Suicidal Ideation: No - Homicidal Ideation Homicidal Ideation: No Goal/Treatment Plan - Goal/Treatment Plan Need for Continued Stay: Remain at risks for inpatient hospitalization, Severe depression anxiety, Discharge may exacerbated symptoms, Severe functional impairment Progress Toward Problem(s) and Goals/Treatment Plan: * c/w current tx and plan * zoloft 200 mg po daily * seroquel 100 mg AMHS * Sonata 10 mg HS increased to 15 mg po HS on 11/17/18 * vistaril 50 q8 prns * Vitals reviewed and noted below: Selected Entries 11/16/18 11/16/18 11/16/18 07:00 09:37 09:38 Temperature 98.5 F Pulse Rate 65 65 72 Respiratory 20 Rate Blood Pressure 96/68 L 96/68 L 101/66 11/16/18 16:00 Temperature Pulse Rate 70 Respiratory Rate Blood Pressure 105/70 * No new lab results noted thus far today Estimated Date of D/C: 11/19/18
--- NOTE | 2018-11-17 14:53 | PCM.BM ---
<Maegan Rooney Y - Last Filed: 11/17/18 14:53> Treatment Plan Problems - Problems identified on initial assessmt anxiety Date Initiated: 11/02/18 Time Initiated: 18:30 Assessment reference: NA Status: Active Priority: 1 fear Date Initiated: 11/02/18 Time Initiated: 18:30 Status: Active Priority: 2 panic attacks Date Initiated: 11/02/18 Time Initiated: 18:30 Assessment reference: NA Status: Active Priority: 3 altered sleep pattern Date Initiated: 11/02/18 Time Initiated: 18:30 Assessment reference: NA Status: Active Priority: 4 Treatment assets and liabiliti Patient Assests: cooperative, ADL independent, cognitively intact Patient Liabilities: live alone, financial problems, poor support system - Milieu Protocol Maintain good personal hygiene: every shift Encourage regular showers, every shift Remind patient to perform daily oral care, every shift Assist patient to perform ADL's Maintain personal safety: every shift Educate patient to report safety concerns to staff, every shift Monitor environment for contraband/sharps Medication safety: Monitor for expected outcome, potential side effects: every shift, Assess barriers to learning: every shift, Assess readiness for medication education: every shift Milieu Narrative: * c/w current tx and plan * zoloft 200 mg po daily * seroquel 100 mg AMHS * Sonata 10 mg HS increased to 15 mg po HS on 11/17/18 * vistaril 50 q8 prns * Vitals reviewed and noted below: Selected Entries 11/16/18 11/16/18 11/16/18 07:00 09:37 09:38 Temperature 98.5 F Pulse Rate 65 65 72 Respiratory 20 Rate Blood Pressure 96/68 L 96/68 L 101/66 11/16/18 16:00 Temperature Pulse Rate 70 Respiratory Rate Blood Pressure 105/70 * No new lab results noted thus far today Family Contact - Goals for Treatment Patient goals for treatment: "I want my anxiety to be controlled." Discharge/Continuing Care - Education Needs Education Needs: Patient Medication, Patient Diagnosis/Disease Process, Patient Coping Skills, Patient Placement options, Patient Community resources, Patient Activities of Daily Living, Patient Pain, Patient Nutrition, Patient Health Practices/Safety, Patient Personal Hygiene/Grooming, Patient Aftercare Safety Plan - Discharge Discharge Criteria: Tolerates medication w/o severe side effects, Free of Suicidal thoughts, Normal sleep pattern, Ability to care for self, Reduction of target symptoms Discharge to:: Home - Treatment Team Participation Patient/Family/SO Statement: * c/w current tx and plan * zoloft 200 mg po daily * seroquel 100 mg AMHS * Sonata 10 mg HS increased to 15 mg po HS on 11/17/18 * vistaril 50 q8 prns * Vitals reviewed and noted below: Selected Entries 11/16/18 11/16/18 11/16/18 07:00 09:37 09:38 Temperature 98.5 F Pulse Rate 65 65 72 Respiratory 20 Rate Blood Pressure 96/68 L 96/68 L 101/66 11/16/18 16:00 Temperature Pulse Rate 70 Respiratory Rate Blood Pressure 105/70 * No new lab results noted thus far today Treatment Plan Review - Problem anxiety Time Initiated: 18:30 fear Time Initiated: 18:30 panic attacks Time Initiated: 18:30 altered sleep pattern Time Initiated: 18:30 <Sylvester Mi - Last Filed: 11/17/18 16:24> Treatment Plan Review - Problem anxiety Progress toward outcomes: improved fear Progress toward outcomes: improved panic attacks Progress toward outcomes: improved altered sleep pattern Progress toward outcomes: improved
[2018-11-17 20:32] VITALS: O2SAT 98
[2018-11-18 07:23] VITALS: RESP 20
--- NOTE | 2018-11-18 10:35 | PCM.PYCHPN ---
Psychiatric Progress Note - Psychiatric Progress Note Patient seen today, length of contact: 30min Problems Identified/Issues Discussed: I reviewed recent notes and met with patient in the hallway. Appearance is unkempt and patient reports that sleep was still restless last night though improved with increase of sonata to 15 mg po HS. She is willing to try 20 mg po tonight. Patient remains oriented x3. Patient reports feeling "okay, still very anxious", In general patient feels she is "getting better, eating fine". Neither hopeful or hopeless. She denies any side effects new discomfort or pain. Patient has been visible on the unit and engages in some activities. She likes to watch tv. Staff notes indicate that patient appears to be slowly improving though she still seems passive and unmotivated. Diagnostic Results: r/o MDD r/o DAVID Medication Change: Yes (Sonata increased to 15 mg po HS) Medical Record Reviewed: Yes Mental Status Examination - Cognitive Function Orientation: Person, Place, Situation, Time Memory: Impaired Attention: Poor (Some improvement) Concentration: Poor (, Improvement) Association: Loose Fund of Knowledge: Poor - Mood Mood: Depressed ("better, neither hopeful or hopeless"), Anxious - Affect Affect: Constricted, Flat - Speech Speech: Appropriate - Formal Thought Process Formal Thought Process: No Impairment - Suicidal Ideation Suicidal Ideation: No - Homicidal Ideation Homicidal Ideation: No Goal/Treatment Plan - Goal/Treatment Plan Need for Continued Stay: Remain at risks for inpatient hospitalization, Severe depression anxiety, Discharge may exacerbated symptoms, Severe functional impairment Progress Toward Problem(s) and Goals/Treatment Plan: * c/w current tx and plan * Appreciate f/u by Dr. Bolanos on 11/17/18~no new recommendations, will continue to follow * zoloft 200 mg po daily * seroquel 100 mg AMHS * Sonata 15 mg HS increased to 20 mg po HS on 11/18/18 * vistaril 50 q8 prns * Vitals reviewed and noted below: Selected Entries 11/18/18 07:23 Temperature 97.5 F L Pulse Rate 70 Respiratory 20 Rate Blood Pressure 119/72 * No new lab results noted thus far today Estimated Date of D/C: 11/19/18
[2018-11-18] MEDS: Pantoprazole 40 mg EC Tab PO SCH (10:38)
[2018-11-18] MEDS: Metoprolol Succinate 50 mg XL Tab PO SCH (10:39)
--- NOTE | 2018-11-18 12:46 | PN ---
DATE: 11/18/2018 LOCATION: This patient is in the [facility] Behavioral Care Unit, room 519, bed 2. SUBJECTIVE: She is seen this morning. She has no complaints. She is resting. PHYSICAL EXAMINATION: VITAL SIGNS: Pulse is 70, blood pressure 119/72, respirations are 20 and the patient's temperature 97.5. HEENT: Head is normocephalic. NECK: Thyroid is not enlarged. JVP is flat. LUNGS: Clear. HEART: Normal sinus rhythm. S1 and S2 present. ABDOMEN: Soft. Liver and spleen not palpable. CENTRAL NERVOUS SYSTEM: No focal neurological deficits. MEDICATIONS: The patient's medications are reviewed and they are not changed. LABORATORY DATA: The patient's lab work was reviewed yesterday. The white count is within normal range except that her neutrophil count is low and lymphocytic count is higher. Monocyte count is also elevated. ASSESSMENT AND PLAN: The patient's clinical condition seemed to be improving. Continue medical care. She has history of coronary artery disease, cerebrovascular disease, chronic lung disease, hypertension and gallbladder disease. Jose Alfredo Bolanos MD MTDD
[2018-11-19 07:18] VITALS: BP 110/69; PULSE 71; TEMP 97.2
[2018-11-19] MEDS: Metoprolol Succinate 50 mg XL Tab PO SCH (09:12)
[2018-11-19] MEDS: Pantoprazole 40 mg EC Tab PO SCH (09:12)
--- NOTE | 2018-11-19 09:19 | PN ---
DATE: 10/20/2018 LOCATION: The patient is in Behavioral Care Unit, [facility] in [place] in room 519, bed 2. SUBJECTIVE: The patient is a 58-year-old female. She was admitted with depression. The patient has history of coronary artery disease, cerebrovascular disease, chronic lung disease, hypothyroidism. The patient also has history of smoking, gallbladder disease and hypertension. She is medically improved. PHYSICAL EXAMINATION: VITAL SIGNS: Pulse is 71, blood pressure 110/70 and respirations are 20. HEENT: The patient's head is normocephalic. LUNGS: Clear. HEART: Normal sinus rhythm. ABDOMEN: No tenderness. CENTRAL NERVOUS SYSTEM: No focal deficits. MEDICATIONS: The patient's medications consists of Actigall 300 mg b.i.d., aspirin 81 mg daily, Ativan 1 mg every 6 hours p.r.n. for agitation. The patient is on Colace twice a day. The patient is also on Lipitor 10 mg daily, Lyrica 50 mg three times a day. The patent is on nicotine patch for withdrawal from nicotine, she has history of smoking. Amlodipine 5 mg daily, Plavix 75 mg daily, pantoprazole 40 mg daily, Seroquel 100 mg at night. The patient gets Sonata 50 mg at night and metoprolol 50 mg daily. LABORATORY DATA: The patient's lab work remains the same and stable. The patient will continue current medications and we will followup. Jose Alfredo Bolanos MD GEO
--- NOTE | 2018-11-19 15:32 | PCM.PYCHDC ---
Mental Status Examination - Mental Status Examination Orientation: Person, Place, Situation, Time Memory: Intact Mood: Neutral Affect: Constricted (But reactive and mood congruent) Speech: Appropriate (Underproductive about since that baseline) Attention: WNL (Much improved) Concentration: WNL (Much improved) Association: WNL Fund of Knowledge: Poor (Baseline) Formal Thought Process: No Impairment, Other (Thought process seems to be concrete) Description of patient's judgement and insight: Pt has improved insight into mental and medical illness, pt was compliant with medications and unit rules and regulations, pt was going to groups, was calm, cooperative, socially appropriate, no behavioral incidents, no agitation, no aggression. Psychotic Thoughts and Behaviors: Pt denied v/a/t hallucinations, denied paranoid ideations, pt does not appear to be psychotic, and thought process is goal directed. Suicidal Ideation: No Current Homicidal Ideation?: No Plan: pt adamantly denied thoughts of harming self or others denied intent or plan. Discharge Summary - Discharge Note Reason for Hospitalization: pt was admitted for evaluation of depression, worsening of anxiety, possible suicidal ideation. Psychiatric History (includes Medical, Family, Personal Hx): as per HPI Laboratory Data: 11/16/18 08:40 11/16/18 08:40 Lab Results 11/16/18 08:40: Sodium 141, Chloride 103, Potassium 4.2, Carbon Dioxide 28, Anion Gap 14, BUN 24 H, Creatinine 0.8, Est GFR ( Amer) > 60, Est GFR (Non-Af Amer) > 60, Random Glucose 98, Calcium 9.9, Total Bilirubin 0.3, AST 21, ALT 17, Alkaline Phosphatase 76, Total Protein 8.6 H, Albumin 4.4, Globulin 4.2, Albumin/Globulin Ratio 1.1 11/16/18 08:40: WBC 7.3, RBC 4.62, Hgb 13.2, Hct 41.3, MCV 89.4, MCH 28.6, MCHC 32.0, RDW 15.1 H, Plt Count 409, MPV 9.5, Neut % (Auto) 49.5 L, Lymph % (Auto) 35.8 H, [place] % (Auto) 7.1 H, Eos % (Auto) 6.2 H, Baso % (Auto) 1.4, Lymph # (Auto) 2.6, [place] # (Auto) 0.5, Eos # (Auto) 0.5, Baso # (Auto) 0.10, Absolute Neuts (auto) 3.62 11/06/18 07:00: Vitamin B12 526 11/02/18 12:11: Urine Opiates Screen Negative, Urine Methadone Screen Negative, Ur Barbiturates Screen Negative, Ur Phencyclidine Scrn Negative, Ur Amphetamines Screen Negative, U Benzodiazepines Scrn Negative, U Oth Cocaine Metabols Negative, U Cannabinoids Screen Negative 11/02/18 09:42: Free T4 0.85, TSH 3rd Generation 1.19, Alcohol, Quantitative < 10 11/02/18 09:42: Salicylates < 1 L 11/02/18 09:42: Sodium 134, Chloride 96 L, Potassium 4.7, Carbon Dioxide 23, Anion Gap 20, BUN 13, Creatinine 0.6 L, Est GFR ( Amer) > 60, Est GFR (Non-Af Amer) > 60, Random Glucose 72, Calcium 9.8, Magnesium 1.8, Total Bilirubin 0.8, AST 35, ALT 32, Alkaline Phosphatase 98, Troponin I < 0.01, Total Protein 8.3, Albumin 4.6, Globulin 3.7, Albumin/Globulin Ratio 1.2, Lipase 40 11/02/18 09:42: pO2 41, VBG pH 7.31 L, VBG pCO2 44.0, VBG HCO3 22.2, VBG Total CO2 23.6, VBG O2 Sat (Calc) 78.4 H, VBG Base Excess -4.1 L, VBG Potassium 4.0, Sodium 132.0, Chloride 95.0 L, Glucose 72, Lactate 2.0, FiO2 21.0, Venous Blood Potassium 4.0 11/02/18 09:42: Urine Color Yellow, Urine Appearance Clear, Urine pH 6.0, Ur Specific [place] 1.020, Urine Protein Negative, Urine Glucose (UA) Negative, Urine Ketones >=80, Urine Blood Trace-intact H, Urine Nitrate Negative, Urine Bilirubin Negative, Urine Urobilinogen 0.2, Ur Leukocyte Esterase Negative, Urine RBC 1 - 3 H, Urine WBC 0 - 2, Ur Epithelial Cells 1 - 3, Urine Bacteria F ew 11/02/18 09:42: PT 11.3, INR 0.98, APTT 27.8 11/02/18 09:42: WBC 7.9, RBC 4.24, Hgb 12.3, Hct 37.1, MCV 87.5, MCH 29.0, MCHC 33.2, RDW 14.7 H, Plt Count 341, MPV 9.2, Gran % 64.8, Lymph % (Auto) 24.6, [place] % (Auto) 9.6 H, Eos % (Auto) 0.1 L, Baso % (Auto) 0.9, Gran # 5.09, Lymph # (Auto) 1.9, [place] # (Auto) 0.8 H, Eos # (Auto) 0.0, Baso # (Auto) 0.07 Vital Signs Temp Pulse Pulse Resp BP Pulse Ox 11/19/18 09:14 71 110/69 11/19/18 09:12 71 110/69 11/19/18 07:17 97.2 F L 71 20 110/69 11/18/18 16:00 74 99/62 L 11/18/18 10:40 70 119/72 11/18/18 10:39 70 119/72 11/18/18 07:23 97.5 F L 70 20 119/72 11/17/18 20:31 68 18 110/79 98 11/17/18 16:00 74 108/71 11/17/18 06:52 97.2 F L 71 20 118/80 11/16/18 16:00 70 105/70 11/16/18 09:38 72 101/66 11/16/18 09:37 65 96/68 L 11/16/18 07:00 98.5 F 65 20 96/68 L 11/15/18 15:00 84 20 101/62 11/15/18 10:21 70 120/82 11/15/18 07:29 97.9 F 70 20 120/82 11/14/18 10:43 71 124/81 11/14/18 10:42 71 124/81 11/14/18 07:17 97.6 F 71 20 124/81 11/13/18 08:30 72 118/82 11/13/18 08:29 72 118/82 11/13/18 07:00 98.2 F 72 20 118/82 11/12/18 08:35 73 128/78 11/12/18 07:27 98.6 F 73 20 128/78 11/11/18 16:00 75 116/80 11/11/18 07:18 70 133/91 H 11/11/18 07:17 70 133/91 H 11/11/18 07:11 98.1 F 70 20 133/91 H 11/10/18 15:00 73 120/71 11/10/18 08:37 75 128/98 H 11/10/18 08:36 75 128/95 H 11/10/18 07:11 97.5 F L 75 20 128/95 H 11/09/18 15:00 73 106/75 11/09/18 08:42 74 112/80 11/09/18 07:17 97.2 F L 74 20 112/80 11/08/18 09:23 76 134/91 H 11/08/18 09:05 76 134/91 H 11/08/18 07:00 97.6 F 76 20 134/91 H 11/07/18 16:00 82 120/75 11/07/18 10:03 81 112/71 11/07/18 09:56 81 112/71 11/07/18 07:00 97.9 F 73 20 129/90 11/06/18 15:42 81 123/85 11/06/18 08:30 81 118/80 11/06/18 08:29 81 118/80 11/06/18 07:25 97.9 F 81 20 118/80 11/05/18 09:38 81 122/85 11/05/18 09:37 81 122/85 11/05/18 07:19 98.1 F 81 20 122/85 11/04/18 15:00 79 120/86 11/04/18 09:29 81 17 122/93 H 11/04/18 09:28 81 17 122/93 H 11/04/18 08:40 92 H 142/105 H 11/04/18 08:38 92 H 142/105 H 11/04/18 07:08 98.5 F 92 H 20 142/105 H 11/04/18 07:05 98.5 F 92 H 20 142/105 H 11/03/18 16:00 81 123/89 11/03/18 09:48 89 153/102 H 11/03/18 07:34 98.6 F 89 22 153/102 H 11/02/18 18:48 94 H 18 11/02/18 15:23 97.9 F 84 18 124/75 99 11/02/18 15:21 97.9 F 84 18 124/75 99 11/02/18 11:41 93 H 18 122/79 97 11/02/18 08:48 98.7 F 92 H 18 135/88 99 Consultations:: List each consultation separately and include: 1. Reason for request. 2. Findings. 3. Follow-up Consultations: medical and GI consults called Neurology consult appreciated Please see notes for more detailed information Summary of Hospital Course include:: 1. Description of specific treatment plan utilized for patients during their course of treatmen. 2. Summarize the time- course for resolution of acute symptoms and/or regressed behaviors. 3. Describe issues identified and worked on during hospitalization. 4. Describe medication utilized. 5. Describe medical problems identified and treated. 6. Reassessment of suicide risk Summary of Hospital Course: shortly, pt is 58 year old female, self reported h/o depression and anxiety, one previous psychiatric admission, 2 previous suicidal attempts, first 1 was at age of 18 patient overdosed on alcohol and pills, patient was admitted to ICU for 7 days then stayed in to the psychiatric inpatient unit for 3 weeks, second suicidal attempt was about 7 years ago, patient overdosed on pills, patient reported lives in [place], came to [place] visiting her family, patient is not sure how she ended up in [place], patient reported that she called 911 because she was feeling depressed and anxious. In the emergency room patient was initially complaining of abdominal pain, nausea, vomiting, patient also reported that she is depressed that is why psychiatric services were involved. Patient was admitted for evaluation and stabilization of depressive symptoms, anxiety, possible suicidal ideation with a plan to shotgun, patient denied access to any guns. Please see admission note for more detailed information. Patient was stabilized on the following medications: Zoloft 200 mg daily for depression and anxiety Vistaril 50 mg 3 times a day for anxiety sonata 5 mg at the nighttime for insomnia seroquel 100mg po a.m. and at bedtime for mood stabilization Patient tolerated medications well, no side effects observed or reported, aims 0, no EPS. 11/02/18 09:42 11/02/18 09:42 Lab Results 11/02/18 12:11: Urine Opiates Screen Negative, Urine Methadone Screen Negative, Ur Barbiturates Screen Negative, Ur Phencyclidine Scrn Negative, Ur Amphetamines Screen Negative, U Benzodiazepines Scrn Negative, U Oth Cocaine Metabols Negative, U Cannabinoids Screen Negative 11/02/18 09:42: Free T4 0.85, TSH 3rd Generation 1.19, Alcohol, Quantitative < 10 11/02/18 09:42: Salicylates < 1 L 11/02/18 09:42: Sodium 134, Chloride 96 L, Potassium 4.7, Carbon Dioxide 23, Anion Gap 20, BUN 13, Creatinine 0.6 L, Est GFR ( Amer) > 60, Est GFR (Non-Af Amer) > 60, Random Glucose 72, Calcium 9.8, Magnesium 1.8, Total Bilirubin 0.8, AST 35, ALT 32, Alkaline Phosphatase 98, Troponin I < 0.01, Total Protein 8.3, Albumin 4.6, Globulin 3.7, Albumin/Globulin Ratio 1.2, Lipase 40 11/02/18 09:42: pO2 41, VBG pH 7.31 L, VBG pCO2 44.0, VBG HCO3 22.2, VBG Total CO2 23.6, VBG O2 Sat (Calc) 78.4 H, VBG Base Excess -4.1 L, VBG Potassium 4.0, Sodium 132.0, Chloride 95.0 L, Glucose 72, Lactate 2.0, FiO2 21.0, Venous Blood Potassium 4.0 11/02/18 09:42: Urine Color Yellow, Urine Appearance Clear, Urine pH 6.0, Ur Specific [place] 1.020, Urine Protein Negative, Urine Glucose (UA) Negative, Urine Ketones >=80, Urine Blood Trace-intact H, Urine Nitrate Negative, Urine Bilirubin Negative, Urine Urobilinogen 0.2, Ur Leukocyte Esterase Negative, Urine RBC 1 - 3 H, Urine WBC 0 - 2, Ur Epithelial Cells 1 - 3, Urine Bacteria Few 11/02/18 09:42: PT 11.3, INR 0.98, APTT 27.8 11/02/18 09:42: WBC 7.9, RBC 4.24, Hgb 12.3, Hct 37.1, MCV 87.5, MCH 29.0, MCHC 33.2, RDW 14.7 H, Plt Count 341, MPV 9.2, Gran % 64.8, Lymph % (Auto) 24.6, [place] % (Auto) 9.6 H, Eos % (Auto) 0.1 L, Baso % (Auto) 0.9, Gran # 5.09, Lymph # (Auto) 1.9, [place] # (Auto) 0.8 H, Eos # (Auto) 0.0, Baso # (Auto) 0.07 Vital Signs Temp Pulse Pulse Resp BP Pulse Ox 11/03/18 09:48 89 153/102 H 11/03/18 07:34 98.6 F 89 22 153/102 H 11/02/18 18:48 94 H 18 11/02/18 15:23 97.9 F 84 18 124/75 99 11/02/18 15:21 97.9 F 84 18 124/75 99 11/02/18 11:41 93 H 18 122/79 97 11/02/18 08:48 98.7 F 92 H 18 135/88 99 Over the course of this hospitalization pt was attending groups, pt also had medication management, had therapeutic milieu. Overall pt improved significantly, pt's affect became brighter, pt was less depressed, has realistic future oriented plans, pt also does not appear to be psychotic, or anxious, pt was socially appropriate, no behavioral issues, pts insight improved as well and soon pt deemed to be ready for discharge. SW referred pt to a boarding home, pt was accepted, pt was feeling "happy about it". At the time of the discharge patient pose no imminent danger to self or others, will be following up at [facility] program, information about follow up appointment, time and address provided to the pt, (see SW note for more detailed information). It is a patient responsibility to follow up with outpatient clinic, PMD as well as specialists. In case patient will need to obtain results of studies pending at discharge, patient was provided with contact information of Psychiatric Inpatient unit [phone] as well as Medical Record Department [phone], as well as [facility] Program Manager team [phone]. Patient denied any drug abuse, denied smoking, denied alcohol consumption pt was provided with prescriptions for two weeks and one refill for psychotropic meds and one week for medical meds (see medication reconciliation form) Pt was educated about safety plan in case of worsening of symptoms or in case of suicidal or homicidal ideation call 911 or go to the nearest ER, also was educated to take meds as prescribed and stay away from drugs, pt verbalized understanding. - Diagnosis (1) Depression Status: Chronic Priority: Medium (2) Anxiety Status: Chronic Priority: High - Final Diagnosis (DSM 5) Condition upon Discharge: STABLE Disposition: HOME/ ROUTINE Follow-up Treatment Plan: At the time of the discharge patient pose no imminent danger to self or others, will be following up at [facility] program, information about follow up appointment, time and address provided to the pt, (see SW note for more detailed information). It is a patient responsibility to follow up with outpatient clinic, PMD as well as specialists. Prescriptions/Medication Reconciliation: amLODIPine [Norvasc] 5 mg PO DAILY #14 tab Aspirin [Aspirin Chewable] 81 mg PO DAILY #14 chew Atorvastatin [Lipitor] 10 mg PO DIN #14 tab Clopidogrel [Plavix] 75 mg PO DAILY #14 tab Docusate [Colace] 100 mg PO BID #30 cap hydrOXYzine Pamoate [Vistaril] 50 mg PO Q8 PRN #30 cap PRN Reason: Anxiety LORazepam [Ativan] 0.5 mg PO BID PRN #30 tab PRN Reason: Anxiety Metoprolol Succinate XL [Toprol XL] 50 mg PO BRK #14 tab Nicotine 14 mg/24 hr [Nicoderm CQ] 1 patch TD DAILY #14 patch Pantoprazole [Protonix EC Tab] 40 mg PO DAILY #14 ect Pregabalin [Lyrica] 50 mg PO TID #45 cap QUEtiapine [Seroquel] 100 mg PO AMHS #30 tab Sertraline [Zoloft] 200 mg PO DAILY #30 tab Ursodiol [Actigall] 300 mg PO BID #30 cap Zaleplon [Sonata] 10 mg PO HS #14 capsule - Smoking Cessation Smoking Cessation Medication prescribed: No Reason for not providing: Patient denied smoking - Antipsychotic Medications Pt discharged on 2 or more routine antipsychotic medications: No
== END 2018-11-19 12:41 | disposition home or self-care (01) | DRG 885 ==
LOC: ED 08:47 → ERH 14:07 → PSYC 16:00
PROVIDERS: ADMIT Psychiatry & Neurology Psychiatry; ATTEND Psychiatry & Neurology Psychiatry
DX: F32.89 Other specified depressive episodes (principal); R45.851 Suicidal ideations; F41.9 Anxiety disorder, unspecified; G62.9 Polyneuropathy, unspecified; I10 Essential (primary) hypertension; J44.9 Chronic obstructive pulmonary disease, unspecified; E03.9 Hypothyroidism, unspecified; E78.5 Hyperlipidemia, unspecified; G31.84 Mild cognitive impairment of uncertain or unknown etiology; I25.10 Atherosclerotic heart disease of native coronary artery without angina pectoris; Z86.73 Personal history of transient ischemic attack (TIA), and cerebral infarction without residual deficits; K21.0 Gastro-esophageal reflux disease with esophagitis; K29.70 Gastritis, unspecified, without bleeding; K59.00 Constipation, unspecified; K81.9 Cholecystitis, unspecified; F17.210 Nicotine dependence, cigarettes, uncomplicated; Z79.02 Long term (current) use of antithrombotics/antiplatelets; Z79.899 Other long term (current) drug therapy; Z87.11 Personal history of peptic ulcer disease; Z91.010 Allergy to peanuts; Z91.018 Allergy to other foods; Z87.81 Personal history of (healed) traumatic fracture

== ENCOUNTER 2019-01-12 12:01 | Inpatient (IN) | payer MEDICARE, MEDICAID ==
[2019-01-12 12:01] VITALS: BMI 29.2
--- NOTE | 2019-01-12 12:20 | ED PDOC ---
Arrival/HPI - General Chief Complaint: Psychiatric Evaluation Time Seen by Provider: 01/12/19 12:03 Historian: Patient - History of Present Illness Narrative History of Present Illness (Text): 58 y/o female with PMH of HTN and Depression presents to the ED c/o depression x 1 week. Associated anxiety and suicidal ideations without a plan. Pt was advised by her drug abuse social worker to be evaluated in the ED. Pt follows with Dr. Dung rdedy. Admits to taking psychiatric medications as prescribed but states they are not working. Denies any current somatic complaints. Denies substance use, HI, hallucinations, fever, chills, abdominal pain, chest pain, SOB, nausea, vomiting, diarrhea, constipation, back pain, neck pain, urinary symptoms, numbness, weakness, paresthesias, headache, or any other associated symptoms. Past Medical History - Provider Review Nursing Documentation Reviewed: Yes - Cardiac Hx Cardiac Disorders: Yes Hx Hypertension: Yes - Pulmonary Hx Chronic Obstructive Pulmonary Disease (COPD): Yes - Neurological HX Cerebrovascular Accident: No Hx Seizures: No - Endocrine/Metabolic Hx Hypothyroidism: Yes - Hematological/Oncological Hx Cancer: No - Musculoskeletal/Rheumatological Hx Musculoskeletal Disorders: No - Gastrointestinal Hx Gastrointestinal Disorders: Yes Hx Gall Bladder Disease: Yes Hx Gastroesophageal Reflux: Yes Hx Gastrointestinal Ulcer: Yes - Genitourinary/Gynecological Hx Sexually Transmitted Diseases: No - Psychiatric Hx Substance Use: No - Surgical History Hx Musculoskeletal Surgery: Yes - Anesthesia Hx Anesthesia: Yes Hx Anesthesia Reactions: No Hx Malignant Hyperthermia: No Family/Social History - Physician Review Nursing Documentation Reviewed: Yes Family/Social History: No Known Family HX Smoking Status: Heavy Smoker > 10 Cigarettes Daily Hx Alcohol Use: No Hx Substance Use: No Allergies/Home Meds Allergies/Adverse Reactions: Allergies chocolate flavor Allergy (Verified 01/12/19 19:50) RASH peanut Allergy (Verified 01/12/19 19:50) ANGIOEDEMA Home Medications: Home Meds Medication Instructions Recorded Confirmed Fluticasone/Vilanterol 100/25 1 puff PO DAILY 11/02/18 01/12/19 [Breo Ellipta 100-25 MCG INH] Review of Systems - Review of Systems Constitutional: Normal. absent: Fatigue, Fevers Eyes: Normal. absent: Vision Changes ENT: Normal. absent: Sore Throat, Sinus Congestion Respiratory: Normal. absent: SOB, Cough Cardiovascular: Normal. absent: Chest Pain, Palpitations, Syncope Gastrointestinal: Normal. absent: Abdominal Pain, Nausea, Vomiting Genitourinary Female: Normal. absent: Dysuria, Frequency Musculoskeletal: Normal. absent: Arthralgias, Back Pain Skin: Pruritis Neurological: Normal. absent: Headache, Dizziness Endocrine: Normal Hemo/Lymphatic: Normal Psychiatric: Anxiety, Depression, Suicidal Ideation Physical Exam Vital Signs Reviewed: Yes Temperature: Afebrile Blood Pressure: Hypertensive Pulse: Regular Respiratory Rate: Normal Appearance: Positive for: Non-Toxic, Unkept, Uncomfortable Pain Distress: None Mental Status: Positive for: Alert and Oriented X 3 - Systems Exam Head: Present: Atraumatic, Normocephalic Pupils: Present: PERRL Extroacular Muscles: Present: EOMI Conjunctiva: Present: Normal Mouth: Present: Moist Mucous Membranes Neck: Present: Normal Range of Motion Respiratory/Chest: Present: Clear to Auscultation, Good Air Exchange. No: Respiratory Distress, Accessory Muscle Use Cardiovascular: Present: Regular Rate and Rhythm, Normal S1, S2. No: Murmurs Abdomen: No: Tenderness, Distention, Peritoneal Signs Back: Present: Normal Inspection. No: CVA Tenderness, Paraspinal Tenderness Upper Extremity: Present: Normal ROM, NORMAL PULSES, Neurovascularly Intact, Capillary Refill < 2s, Other (bedbug bites). No: Cyanosis, Edema, Temperature Abnormalties Lower Extremity: Present: NORMAL PULSES, Normal ROM, Neurovascularly Intact, Capillary Refill < 2 s, Other (bedbug bites). No: Edema, Temperature Abnormalties Neurological: Present: GCS=15, CN II-XII Intact, Speech Normal, Motor Func Grossly Intact, Normal Sensory Function, Gait Normal Skin: Present: Warm, Dry, Normal Color, Other (bed bug bites on extremities) Psychiatric: Present: Alert, Oriented x 3, Normal Insight, Normal Concentration, Normal Affect, Normal Mood Medical Decision Making ED Course and Treatment: Initial Plan: * CBC, CMP * Acetaminophen, Alochol, Salicylate * UDS * UA * CXR * EKG * 1:1 - patient is suicidal * PES evaluation EKG shows NSR at 91, normal intervals, no STEMI or other signs of ischemia CXR shows no active disease Bloodwork reviewed, unremarkable UA significant for mild dehydration, allow for PO hydration Patient is medically cleared for psychiatric evaluation. 16:00 Advised by PES worker Debbie that patient is to be admitted to psychiatric floor with diagnosis of depression. Pt updated with change in disposition; resting comfortably in stretcher with stable vital signs at this time. - Lab Interpretations Lab Results: 01/12/19 12:27 01/12/19 12:27 Lab Results 01/12/19 15:20: Urine Opiates Screen Negative, Urine Methadone Screen Negative, Ur Barbiturates Screen Negative, Ur Phencyclidine Scrn Negative, Ur Amphetamines Screen Negative, U Benzodiazepines Scrn Negative, U Oth Cocaine Metabols Negative, U Cannabinoids Screen Negative 01/12/19 15:20: Urine Color Dark yellow, Urine Appearance Clear, Urine pH 6.5, Ur Specific [place] >= 1.030, Urine Protein 30 H, Urine Glucose (UA) Negative, Urine Ketones 40 H, Urine Blood Negative, Urine Nitrate Negative, Urine Bilirubin Moderate H, Urine Urobilinogen 1.0 H, Ur Leukocyte Esterase Trace H, Urine RBC None, Urine WBC 5 - 10 H, Ur Epithelial Cells 10 - 12 H, Urine Bacteria Mod 01/12/19 12:27: Alcohol, Quantitative < 10 01/12/19 12:27: Salicylates < 1 L, Acetaminophen < 10.0 L 01/12/19 12:27: Sodium 141, Potassium 4.1, Chloride 102, Carbon Dioxide 24, Anion Gap 20, BUN 13, Creatinine 0.9, Est GFR ( Amer) > 60, Est GFR (Non- Af Amer) > 60, Random Glucose 98, Calcium 9.9, Total Bilirubin 0.4, AST 24, ALT < 6 L, Alkaline Phosphatase 83, Total Protein 8.3, Albumin 4.2, Globulin 4.1, Albumin/Globulin Ratio 1.0 L 01/12/19 12:27: WBC 7.4, RBC 4.65, Hgb 13.4, Hct 40.3, MCV 86.7, MCH 28.8, MCHC 33.3, RDW 15.4 H, Plt Count 394, MPV 9.7, Neut % (Auto) 53.0, Lymph % (Auto) 23.6, [place] % (Auto) 8.4 H, Eos % (Auto) 13.5 H, Baso % (Auto) 1.5, Lymph # (Auto) 1.8, [place] # (Auto) 0.6, Eos # (Auto) 1.0 H, Baso # (Auto) 0.11, Absolute Neuts (auto) 3.94 I have reviewed the lab results: Yes - EKG Interpretation EKG Interpretation (Text): Rate 91; NSR; normal intervals; no STEMI or other signs of acute ischemia Interpreted by ED Physician: Yes Type: 12 lead EKG Disposition/Present on Arrival - Present on Arrival Any Indicators Present on Arrival: No History of DVT/PE: No History of Uncontrolled Diabetes: No Urinary Catheter: No History Surgical Site Infection Following: None - Disposition Have Diagnosis and Disposition been Completed?: Yes Diagnosis: Depression Disposition: HOSPITALIZED Disposition Time: 16:00 Patient Plan: Admission Patient Problems: Current Active Problems Problem Status Onset Depression Chronic Condition: STABLE
[2019-01-12 12:50] LABS: BASO # 0.11 K/mm3 (0.0-2.0); BASO % 1.5 % (0.0-3.0); EOS % 13.5 % (1.5-5.0); HEMOGLOBIN 13.4 g/dL (12.0-16.0); LYMPH # 1.8 (1.2-3.4); LYMPH % 23.6 % (22.0-35.0); MEAN CELL VOLUME 86.7 fl (80.0-105.0); MEAN CORPUSCULAR HEMOGLOBIN 28.8 pg (25.0-35.0); MEAN CORPUSCULAR HGB CONC 33.3 g/dl (31.0-37.0); MEAN PLATELET VOLUME 9.7 fl (7.0-11.0); MONO # 0.6 (0.1-0.6); MONO % 8.4 % (1.0-6.0); RBC 4.65 10^6/uL (3.5-6.1); RED CELL DISTRIBUTION WIDTH 15.4 % (11.5-14.5); WHITE BLOOD COUNT 7.4 10^3/uL (4.5-11.0)
[2019-01-12 13:00] LABS: ACETAMINOPHEN < 10.0 ug/ml (10.0-20.0); SALICYLATE < 1 mg/dL (2.0-20.0)
[2019-01-12 13:02] LABS: ALBUMIN 4.2 g/dL (3.0-4.8); AST/SGOT 24 U/L (14-36); BLOOD UREA NITROGEN 13 mg/dL (7-21); CALCIUM 9.9 mg/dL (8.4-10.5); GFR NON-AFRICAN AMERICAN > 60
[2019-01-12 13:03] LABS: ALT/SGPT < 6 U/L (7-56)
--- NOTE | 2019-01-12 13:44 | RAD ---
Date of service: 01/12/2019 HISTORY: psych COMPARISON: 11/02/2018 TECHNIQUE: 1 view obtained. FINDINGS: LUNGS: No active pulmonary disease. PLEURA: No significant pleural effusion identified, no pneumothorax apparent. CARDIOVASCULAR: No aortic atherosclerotic calcification present. Normal cardiac size. No pulmonary vascular congestion. OSSEOUS STRUCTURES: No significant abnormalities. VISUALIZED UPPER ABDOMEN: Normal. OTHER FINDINGS: None. IMPRESSION: No active disease.
[2019-01-12 15:51] LABS: PH,URINE 6.5 (4.7-8.0); URINE BILIRUBIN MODERATE (NEGATIVE); URINE BLOOD NEGATIVE (NEGATIVE); URINE GLUCOSE (UA) NEGATIVE (NEGATIVE); URINE LEUKOCYTE ESTERASE TRACE Leu/uL (NEGATIVE); URINE PROTEIN 30 mg/dL (<30 mg/dL)
[2019-01-12 15:57] LABS: URINE APPEARANCE CLEAR (CLEAR); URINE COLOR DARK YELLOW (YELLOW)
[2019-01-12 16:01] LABS: BENZODIAZEPINES, UR NEGATIVE (NEGATIVE)
[2019-01-12 16:05] LABS: BARBITURATES, UR NEGATIVE (NEGATIVE); OPIATES, UR NEGATIVE (NEGATIVE); PHENCYCLIDINE, UR NEGATIVE (NEGATIVE)
[2019-01-12 16:10] LABS: URINE BACTERIA MOD /hpf
[2019-01-12 16:37] VITALS: O2SAT 96
[2019-01-12] MEDS ORDERED: Magnesium Hydroxide Susp 30 ml UD PO PRN (17:20)
[2019-01-12] MEDS ORDERED: Alum-Mag Hydrox-Simethicone Susp (30 mL) PO PRN (17:20)
--- NOTE | 2019-01-12 17:48 | PCM.BM ---
<Sylvester Mi - Last Filed: 01/12/19 17:45> Treatment Plan Problems - Problems identified on initial assessmt ALTERED SLEEP PATTERN Date Initiated: 01/12/19 Time Initiated: 17:45 Assessment reference: HP, NA, Other Status: Active SELFCARE DEFICIT Date Initiated: 01/12/19 Time Initiated: 17:46 Assessment reference: HP, NA, Other Status: Active HOPLESSNESS/HELPLESSNESS Date Initiated: 01/12/19 Time Initiated: 17:47 Assessment reference: HP, NA, Other Status: Active Treatment assets and liabiliti Patient Assests: cooperative, ADL independent, cognitively intact, good interpersonal skills Patient Liabilities: live alone, poor support system, medical problems, imparied memory - Milieu Protocol Maintain good personal hygiene: daily Encourage regular showers, daily Remind patient to perform daily oral care, daily Assist patient to perform ADL's Maintain personal safety: daily Educate patient to report safety concerns to staff, daily Monitor environment for contraband/sharps Medication safety: Monitor for expected outcome, potential side effects: daily, Assess barriers to learning: daily, Assess readiness for medication education: daily Discharge/Continuing Care - Education Needs Education Needs: Patient Medication, Patient Diagnosis/Disease Process, Patient Coping Skills, Patient Placement options, Patient Community resources, Patient Uses of Medical Equipment, Patient Health Practices/Safety, Patient Personal Hygiene/Grooming, Patient Aftercare Safety Plan, Patient Other - Discharge Discharge Criteria: Free of Suicidal thoughts, Free of Homicidal thoughts, Free of paranoid thoughts, Free of agitation, Normal sleep pattern <Teresa Stahl - Last Filed: 01/13/19 14:05> - Diagnosis (1) Depression Status: Chronic Interventions: 01/13/19 14:05 Psychoeducation Psychopharmacology/adjustment of medications as needed/ monitoring possible side effects Evaluate pt on daily basis Compliance with medications and follow up appointments Suicide and homicide risk assessment and prevention Relapse prevention Reduction of symptoms Improve functional status Family involvement As outpatient: cognitive behavioral therapy (2) Anxiety Status: Chronic Interventions: 01/13/19 14:06 Psychoeducation Psychopharmacology/adjustment of medications as needed/ monitoring possible side effects Evaluate pt on daily basis Discussion of importance of being compliant with medications and follow up appointments Suicide and homicide risk assessment and prevention, coping strategies, safety plan Reduction of symptoms Relaxation techniques and breathing exercises Improve functional status Family involvement Cognitive behavioral therapy as outpatient <Maegan Rooney - Last Filed: 01/14/19 11:57> Family Contact Family involvement: Famliy/SO not involved - Outside Agency [facility] Care involvment: Information-sharing Agency contact name: [facility] <Tamara Tello - Last Filed: 01/14/19 12:08> Family Contact - Outside Agency [facility] Care involvment: Information-sharing Agency contact name: [facility] Care involvment: Information-sharing Agency contact name: [facility]. Micky Operating Room Aide
--- NOTE | 2019-01-12 18:46 | CARD ---
APPROVED REPORT Date of service: 01/12/2019 EKG Measurement Heart [id number] <Conclusion> Normal sinus rhythm Possible Left atrial enlargement Borderline ECG
[2019-01-12] MEDS: QUEtiapine 50 mg XR Tab PO SCH (21:24)
[2019-01-13] MEDS: Pantoprazole 40 mg EC Tab PO SCH (06:05)
[2019-01-13 07:59] LABS: GLUCOSE,FASTING 91 mg/dL (65-110); HDL CHOLESTEROL 56 mg/dL (29-60)
[2019-01-13 08:09] LABS: FREE T4 0.89 ng/dL (0.78-2.19)
[2019-01-13 08:10] LABS: LDL CHOLESTEROL 114 mg/dL (0-129)
[2019-01-13] MEDS: QUEtiapine 50 mg XR Tab PO SCH ×2 (09:14→22:19)
[2019-01-13] MEDS: Metoprolol Succinate 50 mg XL Tab PO SCH (09:16)
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
[2019-01-14] MEDS: Pantoprazole 40 mg EC Tab PO SCH (06:08)
[2019-01-14] MEDS ORDERED: LINDANE 1% TOP ONE ×2 (09:21→16:06)
[2019-01-14] MEDS ORDERED: Permethrin 1% Kit 59 ML BOTTLE TOP ONE (09:22)
[2019-01-14] MEDS: Metoprolol Succinate 50 mg XL Tab PO SCH (10:58)
[2019-01-14] MEDS: QUEtiapine 50 mg XR Tab PO SCH ×2 (11:02→21:13)
--- NOTE | 2019-01-14 11:43 | PN ---
DATE: 01/14/2019 MEDICAL NOTE SUBJECTIVE: The patient is in [facility]. This patient is admitted with depression and complex mental disorder. The patient has past history of hypertension. The patient has history of gallbladder disease. The patient has history of coronary artery disease, hyperlipidemia, and longstanding depression. The patient is also a smoker. She had been in boarding home in [place] and she is currently complaining of itching and scratching of the scalp and entire body. The patient is not in active pain. PHYSICAL EXAMINATION GENERAL: The patient has seborrheic dermatitis of the scalp. The patient has pruritic manifestation of the entire body. VITAL SIGNS: This morning, the patient's pulse is 89, blood pressure is 119/69, respirations are 20, and O2 saturation is 98% on room air. The patient's temperature is 97.2. HEENT: The patient's head is as mentioned. She has seborrheic dermatitis. NECK: The thyroid is not enlarged clinically. HEART: Normal sinus rhythm. S1 and S2 present. LUNGS: Tracheal central. Breath sounds are vesicular. No adventitious sounds. ABDOMEN: Soft. Liver and spleen not palpable. CENTRAL NERVOUS SYSTEM: The patient is conscious, rational on questioning. She is depressed. The patient's cranial nerves are intact. Motor sensory functions are within normal limits. The patient has peripheral neuropathy for which the patient gets Neurontin. MEDICATIONS: The patient's list of medications consist of Actigall 300 mg b.i.d. for gallbladder disease. The patient is on aspirin 81 mg daily, Colace 100 mg b.i.d., Geodon p.r.n. for agitation, Lipitor 10 mg daily. The patient is on Lyrica 50 mg b.i.d. The patient gets nicotine patch for withdrawal from cigarettes. The patient is on amlodipine 5 mg daily, Plavix 75 mg daily, pantoprazole 40 mg daily, Seroquel 100 mg daily. The patient is on Sonata 10 mg daily for sleep, metoprolol 50 mg daily, hydroxyzine 50 mg every 8 hours p.r.n. for anxiety. She gets Zoloft 100 mg daily. At the moment the patient needs to be evaluated for possible scabies as she was in a longterm and she has manifestations of generalized itching. We will advise the patient to get a shampoo for the head with antifungal agent. The patient might have been on treatment for scabies. We will discuss with the nursing staff. We will followup medical management. The patient's blood count is normal, hemoglobin is 13.4. The patient's chemistry is within range; thyroid functions, T4 is 0.89, TSH is 3.63 within normal range. The patient's cholesterol is under control , total cholesterol is 200, LDL is 114, HDL is 56. Jose Alfredo Bolanos MD [facility]
--- NOTE | 2019-01-14 15:58 | PCM.PYCHPN ---
Psychiatric Progress Note - Psychiatric Progress Note Patient seen today, length of contact: 30min Patient Chief Complaint: "I feel not so good... " Problems Identified/Issues Discussed: Risk/benefits and alternatives of medications discussed, suicide/ homicide prevention, past psychiatric h/o, current psychiatric symptoms, medical problems, risk/benefits and alternatives of medications, medications compliance, coping strategies, substance abuse h/o, relapse prevention, importance of follow up with psychiatrist and therapist, discharge plan. Medical Problems: see HPI Diagnostic Results: 01/12/19 12:27 01/12/19 12:27 Lab Results 01/13/19 07:15: Free T4 0.89, TSH 3rd Generation 3.63 01/13/19 07:15: Fasting Glucose 91, Triglycerides 73, Cholesterol 201 H, LDL Cholesterol Direct 114, HDL Cholesterol 56 01/13/19 07:00: RPR Nonreactive 01/12/19 15:20: Urine Opiates Screen Negative, Urine Methadone Screen Negative, Ur Barbiturates Screen Negative, Ur Phencyclidine Scrn Negative, Ur Amphetamines Screen Negative, U Benzodiazepines Scrn Negative, U Oth Cocaine Metabols Negative, U Cannabinoids Screen Negative 01/12/19 15:20: Urine Color Dark yellow, Urine Appearance Clear, Urine pH 6.5, Ur Specific [place] >= 1.030, Urine Protein 30 H, Urine Glucose (UA) Negative, Urine Ketones 40 H, Urine Blood Negative, Urine Nitrate Negative, Urine Bilirubin Moderate H, Urine Urobilinogen 1.0 H, Ur Leukocyte Esterase Trace H, Urine RBC None, Urine WBC 5 - 10 H, Ur Epithelial Cells 10 - 12 H, Urine Bacteria Mod 01/12/19 12:27: Alcohol, Quantitative < 10 01/12/19 12:27: Salicylates < 1 L, Acetaminophen < 10.0 L 01/12/19 12:27: Sodium 141, Potassium 4.1, Chloride 102, Carbon Dioxide 24, Anion Gap 20, BUN 13, Creatinine 0.9, Est GFR ( Amer) > 60, Est GFR (Non- Af Amer) > 60, Random Glucose 98, Calcium 9.9, Total Bilirubin 0.4, AST 24, ALT < 6 L, Alkaline Phosphatase 83, Total Protein 8.3, Albumin 4.2, Globulin 4.1, Albumin/Globulin Ratio 1.0 L 01/12/19 12:27: WBC 7.4, RBC 4.65, Hgb 13.4, Hct 40.3, MCV 86.7, MCH 28.8, MCHC 33.3, RDW 15.4 H, Plt Count 394, MPV 9.7, Neut % (Auto) 53.0, Lymph % (Auto) 23.6, [place] % (Auto) 8.4 H, Eos % (Auto) 13.5 H, Baso % (Auto) 1.5, Lymph # (Auto) 1.8, [place] # (Auto) 0.6, Eos # (Auto) 1.0 H, Baso # (Auto) 0.11, Absolute Neuts (auto) 3.94 Vital Signs Temp Pulse Resp BP Pulse Ox 01/14/19 11:01 89 119/69 01/14/19 10:58 89 119/69 01/14/19 07:06 97.2 F L 89 20 119/69 01/13/19 16:00 98 H 104/54 L 01/13/19 09:16 106 H 148/83 01/13/19 07:16 97.6 F 106 H 20 148/83 01/12/19 16:37 98.3 F 92 H 18 129/80 96 01/12/19 12:39 97.7 F 95 H 17 158/87 H 99 01/12/19 12:31 97.7 F 95 H 17 158/87 H 99 DSM 5 Symptoms Update: shortly, pt is 58 year old female, self reported h/o depression and anxiety, two previous psychiatric admission, most recent was in this facility in October 2018, h/o suicidal attempts, most recent was about 7years ago, pt lives in boarding home, pt brought herself to the hospital looking for help for worsening of her depression and anxiety, possible suicidal ideation, passive wish to be . Patient was seen today in her room, as per report pt was found laces, disinfection, room was cleaned, antilice shampoo applied, clothes washed, see RN notes for more detained info. pt presented to be depressed, laying with blanket covered her head. pt refused to sign treatment plan, was fixated on ativan. in regards of meds, confirmed by [facility] [id number] seroquel 100mg po bid zoloft 100mg po daily ambien 10mg hs lorazepam 0.5mg po bid prescriber , filled 12/28/18 pt said that she was on antibiotics, but no report, pt was advised to speak to her PMD, . Impression: Rule out major depressive disorder Rule out generalized anxiety disorder Rule out early stage of dementia Medication Change: Yes (Ativan resumed, Zoloft decreased, Effexor started) Medical Record Reviewed: Yes Consults ordered or reviewed: Medical consult appreciated Mental Status Examination - Cognitive Function Orientation: Person, Place, Situation Memory: Impaired Attention: Poor Concentration: Poor Association: Loose Fund of Knowledge: Poor - Mood Mood: Depressed - Affect Affect: Flat - Formal Thought Process Formal Thought Process: No Impairment - Suicidal Ideation Suicidal Ideation: No - Homicidal Ideation Homicidal Ideation: No Goal/Treatment Plan - Goal/Treatment Plan Need for Continued Stay: Remain at risks for inpatient hospitalization, Severe depression anxiety, Discharge may exacerbated symptoms, Severe functional impairment Progress Toward Problem(s) and Goals/Treatment Plan: Milieu/structure/supportive therapy SW consultation for discharge plan and social issues Med management: Medications confirmed by [facility] [phone] seroquel 100mg po bid will be continued for mood stabilization zoloft 100mg po daily, will be weaned off at present moment patient is on 50 mg daily ambien 10mg hs will be continued lorazepam 0.5mg po bid resumed Effexor 37.5 mg daily started for depression and anxiety Family involvement Follow up on labs Will monitor closely Pt was educated about risk/benefits and alternatives of medications, coping strategies (safety plan, suicide prevention), relapse prevention, importance of follow up with psychiatrist and therapist, stay away from drugs/alcohol/smoking Estimated Date of D/C: 01/21/19
[2019-01-15] MEDS: Pantoprazole 40 mg EC Tab PO SCH (06:43)
[2019-01-15] MEDS: Metoprolol Succinate 50 mg XL Tab PO SCH (08:09)
[2019-01-15] MEDS: QUEtiapine 50 mg XR Tab PO SCH ×2 (09:08→22:26)
--- NOTE | 2019-01-15 09:09 | PCM.PYCHPN ---
Psychiatric Progress Note - Psychiatric Progress Note Patient seen today, length of contact: 30min Problems Identified/Issues Discussed: I reviewed assessment and recent notes. Patient is known to me from intake on 12/27/18 at [facility]. She reports continued depression, still v egetating with low energy and motivation. She feels easily overwhelmed and anxious. Presently she denies AVH, wishes or SI. Tolerating current medications and medication changes. Reports some (tolerable) scalp irritation from the lice treatment. Staff note that patient spends a lot of time by herself and appears withdrawn on the unit. There were no behavioral issues overnight. Diagnostic Results: MDD, recurrent, severe no psychosis DAVID Medication Change: No ( ) Medical Record Reviewed: Yes Mental Status Examination - Cognitive Function Orientation: Person, Place, Situation Memory: Impaired Attention: WNL Concentration: Poor Association: Loose Fund of Knowledge: Poor - Mood Mood: Depressed - Affect Affect: Constricted, Flat - Speech Speech: Appropriate - Formal Thought Process Formal Thought Process: No Impairment - Suicidal Ideation Suicidal Ideation: No - Homicidal Ideation Homicidal Ideation: No Goal/Treatment Plan - Goal/Treatment Plan Need for Continued Stay: Remain at risks for inpatient hospitalization, Severe depression anxiety, Discharge may exacerbated symptoms, Severe functional impairment Progress Toward Problem(s) and Goals/Treatment Plan: * c/w current treatment and plan * d/c zoloft on 01/16/19 * No new weekend lab results thus far * Vitals reviewed and noted below: Selected Entries 01/14/19 01/14/19 07:06 11:01 Temperature 97.2 F L Pulse Rate 89 89 Respiratory 20 Rate Blood Pressure 119/69 119/69 Estimated Date of D/C: 01/21/19
--- NOTE | 2019-01-15 10:13 | PN ---
DATE: 01/15/2019 SUBJECTIVE: The patient is in [facility], Behavioral Care Unit, Room 508, Bed 1. The patient was readmitted for depression. The patient has past history of gallbladder disease, coronary artery disease and chronic lung disease. She was a smoker. She has history of hypertension. It is noted that the patient has infection of the body associated with soft tissue scabies,which is giving her chronic irritation and itching. The patient also has seborrheic dermatitis of the scalp with secondary wound on scalp from constant irritation. PHYSICAL EXAMINATION GENERAL: This morning, she is comfortable, but she says some improvement is noted regarding the pruritus. VITAL SIGNS: The pulse is 90, blood pressure 113/82, respirations are 20 and temperature is 97.6. The patient's scalp shows evidence of dandruff like material, irritation with superficial excoriation. HEENT: Head is normocephalic. NECK: Thyroid is not enlarged. JVP is flat. HEART: Normal sinus rhythm. S1 and S2 present. LUNGS: Trachea is central. Breath sounds are vesicular. No adventitious sounds. ABDOMEN: Soft. Liver and spleen not palpable. CENTRAL NERVOUS SYSTEM: No focal deficit. MEDICATIONS: The patient's medications consist of Actigall for gallbladder disease. The patient gets Ambien 10 mg for sleep and aspirin. The patient is on Ativan, Effexor, Colace and Geodon. The patient gets Lipitor, Lyrica, nicotine patch for withdrawal from nicotine, she is a cigarette smoker. Ketoconazole, Nizoral shampoo for the scalp. Amlodipine 5 mg daily for hypertension, Plavix 75 mg for coronary artery disease. The patient is on a heart healthy diet. We will continue current management. This shows some mild improvement at this point; it has been one day. We will follow up. Jose Alfredo Bolanos MD GEO
[2019-01-15] MEDS ORDERED: LINDANE 1% TOP ONE (12:30)
[2019-01-16] MEDS: Pantoprazole 40 mg EC Tab PO SCH (07:13)
--- NOTE | 2019-01-16 08:44 | PCM.PYCHPN ---
Psychiatric Progress Note - Psychiatric Progress Note Patient seen today, length of contact: 30min Problems Identified/Issues Discussed: I reviewed recent notes and met with her at bedside. Patient has been in isolation due to infestation of lice. Her head was shaved yesterday after two treatments were found to be ineffective. In addition a loose pill was found in patient's bed on Thursday This pill turned out to be ambien. Patient indicated that she wasn't aware of the pill nonetheless staff have been checking patient for cheeking. Today patient reports continued depression, still vegetating with low energy and motivation. She feels easily overwhelmed and anxious. Presently she denies AVH, wishes or SI. Tolerating current medications and medication changes. Reports some (tolerable) scalp irritation from the lice treatment and her scratching. Staff note that patient appears withdrawn on the unit. There were no behavioral issues over the weekend. Diagnostic Results: MDD, recurrent, severe no psychosis DAVID Medication Change: Yes (d/c'ed zoloft, effexor increased) Medical Record Reviewed: Yes Mental Status Examination - Cognitive Function Orientation: Person, Place, Situation Memory: Impaired Attention: WNL Concentration: Poor Association: Loose Fund of Knowledge: Poor - Mood Mood: Depressed - Affect Affect: Constricted, Flat - Speech Speech: Appropriate - Formal Thought Process Formal Thought Process: No Impairment - Suicidal Ideation Suicidal Ideation: No - Homicidal Ideation Homicidal Ideation: No Goal/Treatment Plan - Goal/Treatment Plan Need for Continued Stay: Remain at risks for inpatient hospitalization, Severe depression anxiety, Discharge may exacerbated symptoms, Severe functional impairment Progress Toward Problem(s) and Goals/Treatment Plan: * c/w current treatment and plan * Appreciate f/u by Dr. Bolanos on 01/15/19~no new recommendations * d/c'ed zoloft and increased effexor to 75 mg po daily on 01/16/19 * No new weekend lab results thus far * Vitals reviewed and noted below: Selected Entries 01/15/19 01/15/19 07:24 16:00 Temperature 97.6 F Pulse Rate 90 87 Respiratory 20 Rate Blood Pressure 113/82 118/83 Estimated Date of D/C: 01/21/19
[2019-01-16] MEDS: Metoprolol Succinate 50 mg XL Tab PO SCH (10:35)
[2019-01-16] MEDS: QUEtiapine 50 mg XR Tab PO SCH ×2 (10:35→21:41)
--- NOTE | 2019-01-16 10:35 | PN ---
DATE: 01/16/2019 SUBJECTIVE: The patient is in [facility], Behavioral Care Unit. The patient was admitted with depression. SHE HAS ALLERGY TO CHOCOLATE AND PEANUT. The patient has past history of coronary artery disease, history of hypertension. The patient is also treated for anxiety. The patient is seen this morning, the hair has been completely shaved off, because of the parasitic infection of scalp and the hair and the body due to lice. The patient was given lindane and then the patient is on Ketoconazole shampoo for the scalp. She also has some small wounds on the posterior scalp area. PHYSICAL EXAMINATION: NECK: Thyroid is not enlarged. JVP is flat. LUNGS: Clear. HEART: Normal sinus rhythm. S1 and S2 present. ABDOMEN: Soft. Liver and spleen not palpable. CENTRAL NERVOUS SYSTEM: No focal deficits are noted. MEDICATIONS: The patient's medications consist of Actigall, Ambien, aspirin, Ativan, Effexor, Geodon, Lipitor, Lyrica, nicotine patch, Ketoconazole shampoo, amlodipine, Plavix, pantoprazole, Seroquel, metoprolol. The patient is also getting Vistaril 50 mg every 8 hours p.r.n. for anxiety. LABORATORY DATA: The patient's blood work will be repeated. PLAN: The patient's condition is improving. She still has pruritus involving the body and the scalp. We will place the patient on Ciprofloxacin 500 mg twice a day for superficial skin infection of the scalp. Jose Alfredo Bolanos MD GEO
[2019-01-17] MEDS: Pantoprazole 40 mg EC Tab PO SCH (07:08)
[2019-01-17 08:39] LABS: BASO # 0.05 K/mm3 (0.0-2.0); BASO % 0.9 % (0.0-3.0); EOS # 1.1 (0.0-0.7); HEMOGLOBIN 12.7 g/dL (12.0-16.0); LYMPH # 2.2 (1.2-3.4); LYMPH % 40.8 % (22.0-35.0); MEAN CELL VOLUME 88.2 fl (80.0-105.0); MEAN CORPUSCULAR HEMOGLOBIN 27.7 pg (25.0-35.0); MEAN CORPUSCULAR HGB CONC 31.4 g/dl (31.0-37.0); MEAN PLATELET VOLUME 10.2 fl (7.0-11.0); MONO # 0.4 (0.1-0.6); MONO % 7.7 % (1.0-6.0); PLATELET COUNT 339 10^3/uL (120.0-450.0); RBC 4.58 10^6/uL (3.5-6.1); RED CELL DISTRIBUTION WIDTH 15.5 % (11.5-14.5); WHITE BLOOD COUNT 5.3 10^3/uL (4.5-11.0)
[2019-01-17 08:42] LABS: EOS % 21.5 % (1.5-5.0)
[2019-01-17 08:54] LABS: ALB/GLOB RATIO 1.1 (1.1-1.8); ALT/SGPT 12 U/L (7-56); AST/SGOT 17 U/L (14-36); BLOOD UREA NITROGEN 22 mg/dL (7-21); CALCIUM 9.6 mg/dL (8.4-10.5); GFR NON-AFRICAN AMERICAN > 60
[2019-01-17 09:26] LABS: BASOPHIL 1 % (0.0-1.0); EOSINOPHIL 23 % (0.0-3.0); LYMPHOCYTE 39 % (22.0-35.0); MONOCYTE 11 % (1.0-6.0); NEUTROPHIL 26 % (50.0-70.0); PLATELET ESTIMATE NORMAL (NORMAL)
[2019-01-17] MEDS: QUEtiapine 50 mg XR Tab PO SCH ×2 (11:16→21:18)
[2019-01-17] MEDS: Metoprolol Succinate 50 mg XL Tab PO SCH (11:20)
--- NOTE | 2019-01-17 12:16 | PN ---
DATE: 01/17/2019 SUBJECTIVE: The patient is in Behavioral Care Unit, [facility], room 508,bed 1. The patient was admitted with depression. THE PATIENT IS ALLERGIC TO CHOCOLATE AND PEANUT. The patient has a history of coronary artery disease, gallbladder disease, hypertension, and chronic lung disease. The patient is a smoker. Since this morning, she is lying down in bed. She states that she feels somewhat improved. She was diagnosed with scabies, and there was some excoriation on the scalp that has been treated with antibiotic and ketoconazole shampoo. The patient's lice was treated with lindane. PHYSICAL EXAMINATION: VITAL SIGNS: This morning, the pulse is 101, blood pressure is 136/83, respirations are 17. LUNGS: Clear. HEART: Normal sinus rhythm. ABDOMEN: Soft. Liver and spleen not palpable. CENTRAL NERVOUS SYSTEM: The patient had no focal deficit. MEDICATIONS: The patient's medications is consistent of Actigall, Ambien, aspirin, Ativan, Cipro, Colace, Effexor, Geodon, Lyrica, Nicotine patch, ketoconazole shampoo, amlodipine for blood pressure. The patient get Plavix 75 mg for coronary artery disease, pantoprazole 40 mg daily, Seroquel 100 mg at bedtime, metoprolol 50 mg daily. DIET: The patient's diet is heart-healthy diet. LABORATORY DATA: Lab work was done on 01/12/2019, and is seemed to be within normal range. ASSESSMENT AND PLAN: We will continue with medical management. We will followup. Jose Alfredo Bolanos MD GEO
--- NOTE | 2019-01-17 16:27 | PCM.PYCHPN ---
Psychiatric Progress Note - Psychiatric Progress Note Patient seen today, length of contact: 30min Patient Chief Complaint: "I feel not so good... " Problems Identified/Issues Discussed: Risk/benefits and alternatives of medications discussed, suicide/ homicide prevention, past psychiatric h/o, current psychiatric symptoms, medical problems, risk/benefits and alternatives of medications, medications compliance, coping strategies, substance abuse h/o, relapse prevention, importance of follow up with psychiatrist and therapist, discharge plan. Medical Problems: see HPI Diagnostic Results: 01/12/19 12:27 01/12/19 12:27 Lab Results 01/13/19 07:15: Free T4 0.89, TSH 3rd Generation 3.63 01/13/19 07:15: Fasting Glucose 91, Triglycerides 73, Cholesterol 201 H, LDL Cholesterol Direct 114, HDL Cholesterol 56 01/13/19 07:00: RPR Nonreactive 01/12/19 15:20: Urine Opiates Screen Negative, Urine Methadone Screen Negative, Ur Barbiturates Screen Negative, Ur Phencyclidine Scrn Negative, Ur Amphetamines Screen Negative, U Benzodiazepines Scrn Negative, U Oth Cocaine Metabols Negative, U Cannabinoids Screen Negative 01/12/19 15:20: Urine Color Dark yellow, Urine Appearance Clear, Urine pH 6.5, Ur Specific [place] >= 1.030, Urine Protein 30 H, Urine Glucose (UA) Negative, Urine Ketones 40 H, Urine Blood Negative, Urine Nitrate Negative, Urine Bilirubin Moderate H, Urine Urobilinogen 1.0 H, Ur Leukocyte Esterase Trace H, Urine RBC None, Urine WBC 5 - 10 H, Ur Epithelial Cells 10 - 12 H, Urine Bacteria Mod 01/12/19 12:27: Alcohol, Quantitative < 10 01/12/19 12:27: Salicylates < 1 L, Acetaminophen < 10.0 L 01/12/19 12:27: Sodium 141, Potassium 4.1, Chloride 102, Carbon Dioxide 24, Anion Gap 20, BUN 13, Creatinine 0.9, Est GFR ( Amer) > 60, Est GFR (Non- Af Amer) > 60, Random Glucose 98, Calcium 9.9, Total Bilirubin 0.4, AST 24, ALT < 6 L, Alkaline Phosphatase 83, Total Protein 8.3, Albumin 4.2, Globulin 4.1, Albumin/Globulin Ratio 1.0 L 01/12/19 12:27: WBC 7.4, RBC 4.65, Hgb 13.4, Hct 40.3, MCV 86.7, MCH 28.8, MCHC 33.3, RDW 15.4 H, Plt Count 394, MPV 9.7, Neut % (Auto) 53.0, Lymph % (Auto) 23.6, [place] % (Auto) 8.4 H, Eos % (Auto) 13.5 H, Baso % (Auto) 1.5, Lymph # (Auto) 1.8, [place] # (Auto) 0.6, Eos # (Auto) 1.0 H, Baso # (Auto) 0.11, Absolute Neuts (auto) 3.94 Vital Signs Temp Pulse Resp BP Pulse Ox 01/14/19 11:01 89 119/69 01/14/19 10:58 89 119/69 01/14/19 07:06 97.2 F L 89 20 119/69 01/13/19 16:00 98 H 104/54 L 01/13/19 09:16 106 H 148/83 01/13/19 07:16 97.6 F 106 H 20 148/83 01/12/19 16:37 98.3 F 92 H 18 129/80 96 01/12/19 12:39 97.7 F 95 H 17 158/87 H 99 01/12/19 12:31 97.7 F 95 H 17 158/87 H 99 DSM 5 Symptoms Update: shortly, pt is 58 year old female, self reported h/o depression and anxiety, two previous psychiatric admission, most recent was in this facility in October 2018, h/o suicidal attempts, most recent was about 7years ago, pt lives in boarding home, pt brought herself to the hospital looking for help for worsening of her depression and anxiety, possible suicidal ideation, passive wish to be . Patient was seen today treatment team meeting, patient had was she was patient's head was shaved over the weekend after two treatments for lice were found to be ineffective. Patient reported that she feels depressed, hopeless, helpless, still vegetating with low energy and motivation. She feels easily overwhelmed and anxious. Presently she denies AVH, wishes or SI. Tolerating current medications and medication changes. Patient reported that itchiness are "getting better." As per staff there is no major issues besides Ambien p.o. was found on the pillow over the weekend. Impression: Rule out major depressive disorder Rule out generalized anxiety disorder Rule out early stage of dementia Medication Change: Yes (d/c'ed zoloft, effexor increased) Medical Record Reviewed: Yes Mental Status Examination - Cognitive Function Orientation: Person, Place, Situation Memory: Impaired Attention: WNL Concentration: Poor Association: Loose Fund of Knowledge: Poor - Mood Mood: Depressed - Affect Affect: Constricted, Flat - Speech Speech: Appropriate - Formal Thought Process Formal Thought Process: No Impairment - Suicidal Ideation Suicidal Ideation: No - Homicidal Ideation Homicidal Ideation: No Goal/Treatment Plan - Goal/Treatment Plan Need for Continued Stay: Remain at risks for inpatient hospitalization, Severe depression anxiety, Discharge may exacerbated symptoms, Severe functional impairment Progress Toward Problem(s) and Goals/Treatment Plan: Milieu/structure/supportive therapy SW consultation for discharge plan and social issues Med management: Medications confirmed by [facility] [id number] seroquel 100mg po bid will be continued for mood stabilization zoloft was weaned off ambien 10mg hs will be continued lorazepam 0.5mg po bid resumed Effexor 75 mg daily started for depression and anxiety Family involvement Follow up on labs Will monitor closely Pt was educated about risk/benefits and alternatives of medications, coping strategies (safety plan, suicide prevention), relapse prevention, importance of follow up with psychiatrist and therapist, stay away from drugs/alcohol/smoking Estimated Date of D/C: 01/21/19
[2019-01-18] MEDS: Pantoprazole 40 mg EC Tab PO SCH (05:59)
[2019-01-18] MEDS: QUEtiapine 50 mg XR Tab PO SCH ×2 (10:27→21:26)
[2019-01-18] MEDS: Metoprolol Succinate 50 mg XL Tab PO SCH (10:28)
--- NOTE | 2019-01-18 11:57 | PN ---
DATE: 01/18/2019 LOCATION: The patient is in [facility] Behavioral Care Unit. SUBJECTIVE: She was admitted with depression. She has past history of hypertension, coronary artery disease, gallbladder disease, gastritis, nicotine dependence; she is a cigarette smoker. The patient is seen this morning. She has seborrheic dermatitis of the scalp. She had been treated for lice with lindane. PHYSICAL EXAMINATION: VITAL SIGNS: This morning; the pulse is 75, blood pressure 114/74, and respirations are 20. HEENT: The patient's head is normocephalic. LUNGS: Clear. HEART: Normal sinus rhythm. S1 and S2 present. ABDOMEN: Soft. Liver and spleen not palpable. CENTRAL NERVOUS SYSTEM: No focal deficit. ASSESSMENT AND PLAN: The patient's medications will be continued. She is on Actigall, Ambien, aspirin, Colace, Effexor, and Geodon p.r.n. for agitation. The patient is on Lyrica, Lipitor, nicotine patch, amlodipine, Plavix, and metoprolol. The patient's blood work remains the same. The patient's condition is improving. We will follow up medically. Jose Alfredo Bolanos MD MTDD
--- NOTE | 2019-01-18 15:04 | PCM.PYCHPN ---
Psychiatric Progress Note - Psychiatric Progress Note Patient seen today, length of contact: 30min Patient Chief Complaint: "I do not know, I feel very depressed, very depressed..." Problems Identified/Issues Discussed: Risk/benefits and alternatives of medications discussed, suicide/ homicide prevention, past psychiatric h/o, current psychiatric symptoms, medical problems , risk/benefits and alternatives of medications, medications compliance, coping strategies, substance abuse h/o, relapse prevention, importance of follow up with psychiatrist and therapist, discharge plan. Medical Problems: see HPI Diagnostic Results: 01/12/19 12:27 01/12/19 12:27 Lab Results 01/13/19 07:15: Free T4 0.89, TSH 3rd Generation 3.63 01/13/19 07:15: Fasting Glucose 91, Triglycerides 73, Cholesterol 201 H, LDL Cholesterol Direct 114, HDL Cholesterol 56 01/13/19 07:00: RPR Nonreactive 01/12/19 15:20: Urine Opiates Screen Negative, Urine Methadone Screen Negative, Ur Barbiturates Screen Negative, Ur Phencyclidine Scrn Negative, Ur Amphetamines Screen Negative, U Benzodiazepines Scrn Negative, U Oth Cocaine Metabols Negat john, U Cannabinoids Screen Negative 01/12/19 15:20: Urine Color Dark yellow, Urine Appearance Clear, Urine pH 6.5, Ur Specific [place] >= 1.030, Urine Protein 30 H, Urine Glucose (UA) Negative, Urine Ketones 40 H, Urine Blood Negative, Urine Nitrate Negative, Urine Bilirubin Moderate H, Urine Urobilinogen 1.0 H, Ur Leukocyte Esterase Trace H, Urine RBC None, Urine WBC 5 - 10 H, Ur Epithelial Cells 10 - 12 H, Urine Bacteria Mod 01/12/19 12:27: Alcohol, Quantitative < 10 01/12/19 12:27: Salicylates < 1 L, Acetaminophen < 10.0 L 01/12/19 12:27: Sodium 141, Potassium 4.1, Chloride 102, Carbon Dioxide 24, Anion Gap 20, BUN 13, Creatinine 0.9, Est GFR ( Amer) > 60, Est GFR (Non- Af Amer) > 60, Random Glucose 98, Calcium 9.9, Total Bilirubin 0.4, AST 24, ALT < 6 L, Alkaline Phosphatase 83, Total Protein 8.3, Albumin 4.2, Globulin 4.1, Albumin/Globulin Ratio 1.0 L 01/12/19 12:27: WBC 7.4, RBC 4.65, Hgb 13.4, Hct 40.3, MCV 86.7, MCH 28.8, MCHC 33.3, RDW 15.4 H, Plt Count 394, MPV 9.7, Neut % (Auto) 53.0, Lymph % (Auto) 23.6, [place] % (Auto) 8.4 H, Eos % (Auto) 13.5 H, Baso % (Auto) 1.5, Lymph # (Auto) 1.8, [place] # (Auto) 0.6, Eos # (Auto) 1.0 H, Baso # (Auto) 0.11, Absolute Neuts (auto) 3.94 Vital Signs Temp Pulse Resp BP Pulse Ox 01/14/19 11:01 89 119/69 01/14/19 10:58 89 119/69 01/14/19 07:06 97.2 F L 89 20 119/69 01/13/19 16:00 98 H 104/54 L 01/13/19 09:16 106 H 148/83 01/13/19 07:16 97.6 F 106 H 20 148/83 01/12/19 16:37 98.3 F 92 H 18 129/80 96 01/12/19 12:39 97.7 F 95 H 17 158/87 H 99 01/12/19 12:31 97.7 F 95 H 17 158/87 H 99 DSM 5 Symptoms Update: shortly, pt is 58 year old female, self reported h/o depression and anxiety, two previous psychiatric admission, most recent was in this facility in October 2018, h/o suicidal attempts, most recent was about 7years ago, pt lives in boarding home, pt brought herself to the hospital looking for help for worsening of her depression and anxiety, possible suicidal ideation, passive wish to be . Patient was seen today treatment team meeting room pt c/o depression, "not feeling good, I am depressed, very depressed..", pt reported last time she was feeling "okay was couple of months ago..", reported feeing hopeless and helpless still vegetating with low energy and motivation. She feels easily overwhelmed and anxious. Presently she denies AVH, wishes or SI. Tolerating current medications and medication changes. Patient reported that itchiness are "getting better." As per staff there is no major issues besides Ambien p.o. was found on the pillow over the weekend. Impression: Rule out major depressive disorder Rule out generalized anxiety disorder Rule out early stage of dementia Medication Change: Yes (effexor increased) Medical Record Reviewed: Yes Consults ordered or reviewed: Medical consult appreciated Mental Status Examination - Cognitive Function Orientation: Person, Place, Situation Memory: Impaired Attention: WNL Concentration: Poor Association: Loose Fund of Knowledge: Poor - Mood Mood: Depressed - Affect Affect: Constricted, Flat - Speech Speech: Appropriate - Formal Thought Process Formal Thought Process: No Impairment - Suicidal Ideation Suicidal Ideation: No - Homicidal Ideation Homicidal Ideation: No Goal/Treatment Plan - Goal/Treatment Plan Need for Continued Stay: Remain at risks for inpatient hospitalization, Severe depression anxiety, Discharge may exacerbated symptoms, Severe functional impairment Progress Toward Problem(s) and Goals/Treatment Plan: Milieu/structure/supportive therapy SW consultation for discharge plan and social issues Med management: Medications confirmed by Direct Med [phone] seroquel 100mg po bid will be continued for mood stabilization zoloft was weaned off ambien 10mg hs will be continued lorazepam 0.5mg po bid resumed Effexor 150 mg daily started for depression and anxiety Family involvement Follow up on labs Will monitor closely Pt was educated about risk/benefits and alternatives of medications, coping strategies (safety plan, suicide prevention), relapse prevention, importance of follow up with psychiatrist and therapist, stay away from drugs/alcohol/smoking Estimated Date of D/C: 01/21/19
[2019-01-19] MEDS: Pantoprazole 40 mg EC Tab PO SCH (06:37)
[2019-01-19] MEDS: Metoprolol Succinate 50 mg XL Tab PO SCH (08:56)
[2019-01-19] MEDS: QUEtiapine 50 mg XR Tab PO SCH ×2 (08:59→09:18)
--- NOTE | 2019-01-19 15:19 | PCM.PYCHPN ---
Psychiatric Progress Note - Psychiatric Progress Note Patient seen today, length of contact: 30min Patient Chief Complaint: "I feel on edge, I feel angry and annoyed, I don't feel good today..." Problems Identified/Issues Discussed: Risk/benefits and alternatives of medications discussed, suicide/ homicide prevention, past psychiatric h/o, current psychiatric symptoms, medical problems, risk/benefits and alternatives of medications, medications compliance, coping strategies, substance abuse h/o, relapse prevention, importance of follow up with psychiatrist and therapist, discharge plan. Medical Problems: see HPI Diagnostic Results: 01/12/19 12:27 01/12/19 12:27 Lab Results 01/13/19 07:15: Free T4 0.89, TSH 3rd Generation 3.63 01/13/19 07:15: Fasting Glucose 91, Triglycerides 73, Cholesterol 201 H, LDL Cholesterol Direct 114, HDL Cholesterol 56 01/13/19 07:00: RPR Nonreactive 01/12/19 15:20: Urine Opiates Screen Negative, Urine Methadone Screen Negative, Ur Barbiturates Screen Negative, Ur Phencyclidine Scrn Negative, Ur Amphetamines Screen Negative, U Benzodiazepines Scrn Negative, U Oth Cocaine Metabols Negative, U Cannabinoids Screen Negative 01/12/19 15:20: Urine Color Dark yellow, Urine Appearance Clear, Urine pH 6.5, Ur Specific [place] >= 1.030, Urine Protein 30 H, Urine Glucose (UA) Negative, Urine Ketones 40 H, Urine Blood Negative, Urine Nitrate Negative, Urine Bilirubin Moderate H, Urine Urobilinogen 1.0 H, Ur Leukocyte Esterase Trace H, Urine RBC None, Urine WBC 5 - 10 H, Ur Epithelial Cells 10 - 12 H, Urine Bacteria Mod 01/12/19 12:27: Alcohol, Quantitative < 10 01/12/19 12:27: Salicylates < 1 L, Acetaminophen < 10.0 L 01/12/19 12:27: Sodium 141, Potassium 4.1, Chloride 102, Carbon Dioxide 24, Anio n Gap 20, BUN 13, Creatinine 0.9, Est GFR ( Amer) > 60, Est GFR (Non-Af Amer) > 60, Random Glucose 98, Calcium 9.9, Total Bilirubin 0.4, AST 24, ALT < 6 L, Alkaline Phosphatase 83, Total Protein 8.3, Albumin 4.2, Globulin 4.1, Albumin/Globulin Ratio 1.0 L 01/12/19 12:27: WBC 7.4, RBC 4.65, Hgb 13.4, Hct 40.3, MCV 86.7, MCH 28.8, MCHC 33.3, RDW 15.4 H, Plt Count 394, MPV 9.7, Neut % (Auto) 53.0, Lymph % (Auto) 23.6, [place] % (Auto) 8.4 H, Eos % (Auto) 13.5 H, Baso % (Auto) 1.5, Lymph # (Auto) 1.8, [place] # (Auto) 0.6, Eos # (Auto) 1.0 H, Baso # (Auto) 0.11, Absolute Neuts (auto) 3.94 Vital Signs Temp Pulse Resp BP Pulse Ox 01/14/19 11:01 89 119/69 01/14/19 10:58 89 119/69 01/14/19 07:06 97.2 F L 89 20 119/69 01/13/19 16:00 98 H 104/54 L 01/13/19 09:16 106 H 148/83 01/13/19 07:16 97.6 F 106 H 20 148/83 01/12/19 16:37 98.3 F 92 H 18 129/80 96 01/12/19 12:39 97.7 F 95 H 17 158/87 H 99 01/12/19 12:31 97.7 F 95 H 17 158/87 H 99 DSM 5 Symptoms Update: shortly, pt is 58 year old female, self reported h/o depression and anxiety, two previous psychiatric admission, most recent was in this facility in October 2018, h/o suicidal attempts, most recent was about 7years ago, pt lives in boarding home, pt brought herself to the hospital looking for help for worsening of her depression and anxiety, possible suicidal ideation, passive wish to be . Patient was seen today at the treatment team meeting room pt c/o irritability, being annoyed, angry outburst, patient also reported to feel very depressed and anxious, patient said that today she feels "little suicidal...", Patient denied any intent or plan to kill herself. Patient does not want social insurance analyst to contact boarding home in regards of lice infestation. Tolerating current medications and medication changes. Patient reported that itchiness are "getting better." As per staff there is no major issues besides Ambien p.o. was found on the pillow over the weekend. Impression: Rule out major depressive disorder Rule out generalized anxiety disorder Rule out early stage of dementia Medication Change: Yes (ativan increased, seroquel increased) Medical Record Reviewed: Yes Mental Status Examination - Cognitive Function Orientation: Person, Place, Situation Memory: Impaired Attention: WNL Concentration: Poor Association: Loose Fund of Knowledge: Poor - Mood Mood: Depressed - Affect Affect: Constricted, Flat - Speech Speech: Appropriate - Formal Thought Process Formal Thought Process: No Impairment - Suicidal Ideation Suicidal Ideation: No - Homicidal Ideation Homicidal Ideation: No Goal/Treatment Plan - Goal/Treatment Plan Need for Continued Stay: Remain at risks for inpatient hospitalization, Severe depression anxiety, Discharge may exacerbated symptoms, Severe functional impa irment Progress Toward Problem(s) and Goals/Treatment Plan: Milieu/structure/supportive therapy SW consultation for discharge plan and social issues Med management: Medications confirmed by Direct Med [phone] seroquel 200mg po bid will be continued for mood stabilization zoloft was weaned off ambien 10mg hs will be continued lorazepam 1mg po bid for anxiety Effexor 150 mg daily started for depression and anxiety Family involvement Follow up on labs Will monitor closely Pt was educated about risk/benefits and alternatives of medications, coping stra tegies (safety plan, suicide prevention), relapse prevention, importance of follow up with psychiatrist and therapist, stay away from drugs/alcohol/smoking Estimated Date of D/C: 01/21/19
[2019-01-20] MEDS: Pantoprazole 40 mg EC Tab PO SCH (06:32)
[2019-01-20] MEDS: Metoprolol Succinate 50 mg XL Tab PO SCH (09:38)
--- NOTE | 2019-01-20 11:01 | PN ---
DATE: 01/20/2019 SUBJECTIVE: The patient is a 58-year-old female. She is in the Behavioral Care Unit, [facility] in [place]. She was admitted with depression. She has past history of coronary artery disease. She has history of hypertension and nicotine dependence. The patient has history of gastritis. PHYSICAL EXAMINATION: VITAL SIGNS: Pulse is 97, blood pressure 123/67, and respirations are 20 per minute. HEENT: The patient's head is normocephalic. There is some excoriation of the scalp from lice infection. This has been treated with lindane, and is improving. LUNGS: Clear. HEART: Normal sinus rhythm. S1 and S2 present. No murmurs. ABDOMEN: Soft. Liver and spleen not palpable. CENTRAL NERVOUS SYSTEM: No focal deficits are noted. ASSESSMENT AND PLAN: The patient's medications remained the same. She is on Actigall, Ambien, aspirin, Ativan, and Effexor. The patient is on Lipitor, Lyrica, and nicotine patch. The patient's blood work remains the same. The patient's clinical condition is progressively improving. We will continue current management. We will follow up medically. Jose Alfredo Bolanos MD [facility]
--- NOTE | 2019-01-20 15:38 | PCM.PYCHPN ---
Psychiatric Progress Note - Psychiatric Progress Note Patient seen today, length of contact: 30min Patient Chief Complaint: "I feel a little bit better today" Problems Identified/Issues Discussed: Medications, risk/benefits/alternatives, discharge plan, coping strategies. Medical Problems: see HPI Diagnostic Results: 01/12/19 12:27 01/12/19 12:27 Lab Results 01/13/19 07:15: Free T4 0.89, TSH 3rd Generation 3.63 01/13/19 07:15: Fasting Glucose 91, Triglycerides 73, Cholesterol 201 H, LDL Cholesterol Direct 114, HDL Cholesterol 56 01/13/19 07:00: RPR Nonreactive 01/12/19 15:20: Urine Opiates Screen Negative, Urine Methadone Screen Negative, Ur Barbiturates Screen Negative, Ur Phencyclidine Scrn Negative, Ur Amphetamines Screen Negative, U Benzodiazepines Scrn Negative, U Oth Cocaine Metabols Negative, U Cannabinoids Screen Negative 01/12/19 15:20: Urine Color Dark yellow, Urine Appearance Clear, Urine pH 6.5, Ur Specific [place] >= 1.030, Urine Protein 30 H, Urine Glucose (UA) Negative, Urine Ketones 40 H, Urine Blood Negative, Urine Nitrate Negative, Urine Bilirubin Moderate H, Urine Urobilinogen 1.0 H, Ur Leukocyte Esterase Trace H, Urine RBC None, Urine WBC 5 - 10 H, Ur Epithelial Cells 10 - 12 H, Urine Bacte binh Mod 01/12/19 12:27: Alcohol, Quantitative < 10 01/12/19 12:27: Salicylates < 1 L, Acetaminophen < 10.0 L 01/12/19 12:27: Sodium 141, Potassium 4.1, Chloride 102, Carbon Dioxide 24, Anion Gap 20, BUN 13, Creatinine 0.9, Est GFR ( Amer) > 60, Est GFR (Non- Af Amer) > 60, Random Glucose 98, Calcium 9.9, Total Bilirubin 0.4, AST 24, ALT < 6 L, Alkaline Phosphatase 83, Total Protein 8.3, Albumin 4.2, Globulin 4.1, Albumin/Globulin Ratio 1.0 L 01/12/19 12:27: WBC 7.4, RBC 4.65, Hgb 13.4, Hct 40.3, MCV 86.7, MCH 28.8, MCHC 33.3, RDW 15.4 H, Plt Count 394, MPV 9.7, Neut % (Auto) 53.0, Lymph % (Auto) 23.6, [place] % (Auto) 8.4 H, Eos % (Auto) 13.5 H, Baso % (Auto) 1.5, Lymph # (Auto) 1.8, [place] # (Auto) 0.6, Eos # (Auto) 1.0 H, Baso # (Auto) 0.11, Absolute Neuts (auto) 3.94 Vital Signs Temp Pulse Resp BP Pulse Ox 01/14/19 11:01 89 119/69 01/14/19 10:58 89 119/69 01/14/19 07:06 97.2 F L 89 20 119/69 01/13/19 16:00 98 H 104/54 L 01/13/19 09:16 106 H 148/83 01/13/19 07:16 97.6 F 106 H 20 148/83 01/12/19 16:37 98.3 F 92 H 18 129/80 96 01/12/19 12:39 97.7 F 95 H 17 158/87 H 99 01/12/19 12:31 97.7 F 95 H 17 158/87 H 99 DSM 5 Symptoms Update: shortly, pt is 58 year old female, self reported h/o depression and anxiety, two previous psychiatric admission, most recent was in this facility in October 2018, h/o suicidal attempts, most recent was about 7years ago, pt lives in boarding home, pt brought herself to the hospital looking for help for worsening of her depression and anxiety, possible suicidal ideation, passive wish to be . Patient was seen today in her room, pt presented to be less anxious, reported to feel "little better", less irritable. at the same time pt has transient wish to be . Patient denied hearing voices, denied seeing things, patient denied paranoid ideations but patient presented to be guarded. Tolerating current medications and medication changes. Patient reported that itchiness are "getting better." As per staff there is no major issues besides Ambien p.o. was found on the pillow over the weekend. Impression: Rule out major depressive disorder Rule out generalized anxiety disorder Rule out early stage of dementia Medication Change: No (Adjusted yesterday) Medical Record Reviewed: Yes Mental Status Examination - Cognitive Function Orientation: Person, Place, Situation Memory: Impaired Attention: WNL Concentration: Poor (Somewhat better) Association: WNL Fund of Knowledge: Poor (Baseline) - Mood Mood: Depressed - Affect Affect: Constricted, Flat - Speech Speech: Appropriate - Formal Thought Process Formal Thought Process: No Impairment - Suicidal Ideation Suicidal Ideation: No - Homicidal Ideation Homicidal Ideation: No Goal/Treatment Plan - Goal/Treatment Plan Need for Continued Stay: Remain at risks for inpatient hospitalization, Severe depression anxiety, Discharge may exacerbated symptoms, Severe functional impai rment Progress Toward Problem(s) and Goals/Treatment Plan: Milieu/structure/supportive therapy SW consultation for discharge plan and social issues Med management: Medications confirmed by Direct Med [phone] seroquel 200mg po bid will be continued for mood stabilization zoloft was weaned off ambien 10mg hs will be continued lorazepam 1mg po bid for anxiety Effexor 150 mg daily started for depression and anxiety Family involvement Follow up on labs Will monitor closely Pt was educated about risk/benefits and alternatives of medications, coping strategies (safety plan, suicide prevention), relapse prevention, importance of follow up with psychiatrist and therapist, stay away from drugs/alcohol/smoking Estimated Date of D/C: 01/24/19
[2019-01-21] MEDS: Pantoprazole 40 mg EC Tab PO SCH (05:38)
[2019-01-21] MEDS: Metoprolol Succinate 50 mg XL Tab PO SCH (09:40)
--- NOTE | 2019-01-21 10:41 | PN ---
DATE: 01/21/2019 SUBJECTIVE: The patient is in [facility] in Behavioral Care Unit, room 518, bed 2. The patient is seen this morning. The patient has history of depression. The patient has history of gastritis, coronary artery disease, hypertension, gallbladder disease and hyperlipidemia. The patient was treated for lice on the scalp, the condition is improving. PHYSICAL EXAMINATION VITAL SIGNS: Pulse is 89, blood pressure 103/74 and respirations are 20 per minute. HEENT: The patient's scalp shows evidence of small lesions on the top of the head, dry skin. LUNGS: Clear. HEART: Normal sinus rhythm. ABDOMEN: Soft. Liver and spleen not palpable. CENTRAL NERVOUS SYSTEM: No focal deficit. MEDICATIONS: The patient's list of medications consist of Actigall, Ambien, aspirin, Atrovent, Colace, Effexor, Geodon, Lipitor, Lyrica, nicotine patch, metoprolol, Seroquel, pantoprazole, Plavix and acetaminophen. The patient is on multiple medications. DIET: The patient's diet is heart healthy diet. PLAN: The patient's condition is improving. We will continue current medical management. We will followup the patient medically. Jose Alfredo Bolanos MD [facility]
--- NOTE | 2019-01-21 12:05 | PCM.BM ---
<Maegan Rooney Y - Last Filed: 01/21/19 12:04> Treatment Plan Problems - Problems identified on initial assessmt ALTERED SLEEP PATTERN Date Initiated: 01/12/19 Time Initiated: 17:45 Assessment reference: HP, NA, Other Status: Active SELFCARE DEFICIT Date Initiated: 01/12/19 Time Initiated: 17:46 Assessment reference: HP, NA, Other Status: Active HOPLESSNESS/HELPLESSNESS Date Initiated: 01/12/19 Time Initiated: 17:47 Assessment reference: HP, NA, Other Status: Active Treatment assets and liabiliti Patient Assests: cooperative, ADL independent, cognitively intact, good interpersonal skills Patient Liabilities: live alone, poor support system, medical problems, imparied memory - Milieu Protocol Maintain good personal hygiene: daily Encourage regular showers, daily Remind patient to perform daily oral care, daily Assist patient to perform ADL's Maintain personal safety: daily Educate patient to report safety concerns to staff, daily Monitor environment for contraband/sharps Medication safety: Monitor for expected outcome, potential side effects: daily, Assess barriers to learning: daily, Assess readiness for medication education: daily Milieu Narrative: Milieu/structure/supportive therapy SW consultation for discharge plan and social issues Med management: Medications confirmed by Direct Med [phone] seroquel 200mg po bid will be continued for mood stabilization zoloft was weaned off ambien 10mg hs will be continued lorazepam 1mg po bid for anxiety Effexor 150 mg daily started for depression and anxiety Family involvement Follow up on labs Will monitor closely Pt was educated about risk/benefits and alternatives of medications, coping strategies (safety plan, suicide prevention), relapse prevention, importance of follow up with psychiatrist and therapist, stay away from drugs/alcohol/smoking Family Contact Family involvement: Famliy/SO not involved - Outside Agency [facility] Care involvment: Information-sharing Agency contact name: [facility]. Micky Actuarial Manager [facility] Care involent: Information-sharing Agency contact name: [facility] Discharge/Continuing Care - Education Needs Education Needs: Patient Medication, Patient Diagnosis/Disease Process, Patient Coping Skills, Patient Placement options, Patient Community resources, Patient Uses of Medical Equipment, Patient Health Practices/Safety, Patient Personal Hygiene/Grooming, Patient Aftercare Safety Plan, Patient Other - Discharge Discharge Criteria: Free of Suicidal thoughts, Free of Homicidal thoughts, Free of paranoid thoughts, Free of agitation, Normal sleep pattern - Treatment Team Participation Patient/Family/SO Statement: Milieu/structure/supportive therapy SW consultation for discharge plan and social issues Med management: Medications confirmed by Direct Med [phone] seroquel 200mg po bid will be continued for mood stabilization zoloft was weaned off ambien 10mg hs will be continued lorazepam 1mg po bid for anxiety Effexor 150 mg daily started for depression and anxiety Family involvement Follow up on labs Will monitor closely Pt was educated about risk/benefits and alternatives of medications, coping strategies (safety plan, suicide prevention), relapse prevention, importance of follow up with psychiatrist and therapist, stay away from drugs/alcohol/smoking Treatment Plan Review - Problem ALTERED SLEEP PATTERN Time Initiated: 17:45 SELFCARE DEFICIT Time Initiated: 17:46 HOPLESSNESS/HELPLESSNESS Time Initiated: 17:47 <Shira Loya - Last Filed: 01/21/19 14:59> Treatment Plan Review Patient participation: Yes - Problem ALTERED SLEEP PATTERN Progress toward outcomes: improved SELFCARE DEFICIT Progress toward outcomes: improved HOPLESSNESS/HELPLESSNESS Progress toward outcomes: improved <Teresa Stahl - Last Filed: 01/21/19 15:11> - Diagnosis (1) Depression Status: Chronic Interventions: 01/21/19 15:11 Psychoeducation Psychopharmacology/adjustment of medications as needed/ monitoring possible side effects Evaluate pt on daily basis Patient reported her mood is improving denied thoughts of harm to herself or others Patient tolerates medications well (2) Anxiety Status: Chronic Interventions: 01/21/19 15:12 Patient is less anxious Might benefit from CBT as outpatient <Tamara Tello - Last Filed: 01/21/19 15:58>
--- NOTE | 2019-01-21 15:16 | PCM.PYCHPN ---
Psychiatric Progress Note - Psychiatric Progress Note Patient seen today, length of contact: 30min Patient Chief Complaint: "I feel a little bit better today" Problems Identified/Issues Discussed: Medications, risk/benefits/alternatives, discharge plan, coping strategies. Medical Problems: see HPI Diagnostic Results: 01/12/19 12:27 01/12/19 12:27 Lab Results 01/13/19 07:15: Free T4 0.89, TSH 3rd Generation 3.63 01/13/19 07:15: Fasting Glucose 91, Triglycerides 73, Cholesterol 201 H, LDL Cholesterol Direct 114, HDL Cholesterol 56 01/13/19 07:00: RPR Nonreactive 01/12/19 15:20: Urine Opiates Screen Negative, Urine Methadone Screen Negative, Ur Barbiturates Screen Negative, Ur Phencyclidine Scrn Negative, Ur Amphetamines Screen Negative, U Benzodiazepines Scrn Negative, U Oth Cocaine Metabols Negative, U Cannabinoids Screen Negative 01/12/19 15:20: Urine Color Dark yellow, Urine Appearance Clear, Urine pH 6.5, Ur Specific [place] >= 1.030, Urine Protein 30 H, Urine Glucose (UA) Negative, Urine Ketones 40 H, Urine Blood Negative, Urine Nitrate Negative, Urine Bilirubin Moderate H, Urine Urobilinogen 1.0 H, Ur Leukocyte Esterase Trace H, Urine RBC None, Urine WBC 5 - 10 H, Ur Epithelial Cells 10 - 12 H, Urine Bacte binh Mod 01/12/19 12:27: Alcohol, Quantitative < 10 01/12/19 12:27: Salicylates < 1 L, Acetaminophen < 10.0 L 01/12/19 12:27: Sodium 141, Potassium 4.1, Chloride 102, Carbon Dioxide 24, Anion Gap 20, BUN 13, Creatinine 0.9, Est GFR ( Amer) > 60, Est GFR (Non- Af Amer) > 60, Random Glucose 98, Calcium 9.9, Total Bilirubin 0.4, AST 24, ALT < 6 L, Alkaline Phosphatase 83, Total Protein 8.3, Albumin 4.2, Globulin 4.1, Albumin/Globulin Ratio 1.0 L 01/12/19 12:27: WBC 7.4, RBC 4.65, Hgb 13.4, Hct 40.3, MCV 86.7, MCH 28.8, MCHC 33.3, RDW 15.4 H, Plt Count 394, MPV 9.7, Neut % (Auto) 53.0, Lymph % (Auto) 23.6, Harmon % (Auto) 8.4 H, Eos % (Auto) 13.5 H, Baso % (Auto) 1.5, Lymph # (Auto) 1.8, Harmon # (Auto) 0.6, Eos # (Auto) 1.0 H, Baso # (Auto) 0.11, Absolute Neuts (auto) 3.94 Vital Signs Temp Pulse Resp BP Pulse Ox 01/14/19 11:01 89 119/69 01/14/19 10:58 89 119/69 01/14/19 07:06 97.2 F L 89 20 119/69 01/13/19 16:00 98 H 104/54 L 01/13/19 09:16 106 H 148/83 01/13/19 07:16 97.6 F 106 H 20 148/83 01/12/19 16:37 98.3 F 92 H 18 129/80 96 01/12/19 12:39 97.7 F 95 H 17 158/87 H 99 01/12/19 12:31 97.7 F 95 H 17 158/87 H 99 DSM 5 Symptoms Update: shortly, pt is 58 year old female, self reported h/o depression and anxiety, two previous psychiatric admission, most recent was in this facility in October 2018, h/o suicidal attempts, most recent was about 7years ago, pt lives in boarding home, pt brought herself to the hospital looking for help for worsening of her depression and anxiety, possible suicidal ideation, passive wish to be . Patient was seen today the treatment team meeting, pt presented to be less anxious, more sleepy, reported to feel "little better", less irritable. Patient denied hearing voices, denied seeing things, patient denied paranoid ideations but patient presented to be guarded, patient was observed talking to herself, when was advised and patient is talking with patient became very angry, was upset and left the room. Seroquel will be increased. Tolerating current medications and medication changes. Patient reported that skin itchiness are "getting better." As per staff there is no major issues, patient is compliant with her medications. So far patient tolerates medications well, no side effects observed or reported, [place] 0, no EPS. Impression: Rule out major depressive disorder Rule out generalized anxiety disorder Rule out early stage of dementia Medication Change: Yes (Seroquel increased) Medical Record Reviewed: Yes Mental Status Examination - Cognitive Function Orientation: Person, Place, Situation Memory: Impaired Attention: WNL Concentration: Poor (Somewhat better) Association: WNL Fund of Knowledge: Poor (Baseline) - Mood Mood: Depressed - Affect Affect: Constricted, Flat - Speech Speech: Appropriate - Formal Thought Process Formal Thought Process: No Impairment - Suicidal Ideation Suicidal Ideation: No - Homicidal Ideation Homicidal Ideation: No Goal/Treatment Plan - Goal/Treatment Plan Need for Continued Stay: Remain at risks for inpatient hospitalization, Severe depression anxiety, Discharge may exacerbated symptoms, Severe functional impairment Progress Toward Problem(s) and Goals/Treatment Plan: Milieu/structure/supportive therapy SW consultation for discharge plan and social issues Med management: Medications confirmed by Direct Med [id number] seroquel 200mg po bid will be continued for mood stabilization zoloft was weaned off ambien 10mg hs will be continued lorazepam 1mg po bid for anxiety Effexor 150 mg daily for depression and anxiety Family involvement Follow up on labs Will monitor closely Pt was educated about risk/benefits and alternatives of medications, coping strategies (safety plan, suicide prevention), relapse prevention, importance of follow up with psychiatrist and therapist, stay away from drugs/alcohol/smoking Estimated Date of D/C: 01/24/19
[2019-01-22] MEDS: Pantoprazole 40 mg EC Tab PO SCH (06:42)
[2019-01-22] MEDS: Metoprolol Succinate 50 mg XL Tab PO SCH (09:04)
--- NOTE | 2019-01-22 10:32 | PCM.PYCHPN ---
Psychiatric Progress Note - Psychiatric Progress Note Patient seen today, length of contact: 30min Problems Identified/Issues Discussed: I reviewed recent notes and met with patient at bedside. Patient remains friendly and well-oriented during my questioning. Indicates that mood is improving and she denies any perceptual disturbance. When asked about feeling hopeful about the future "I am hopeful about that". I am aware of reports indicating patient was observed talking to herself, her thought process remains clear and coherent during my interview. She has been more visible and engaging a little more however, overall, her affect remains constricted with low motivation. Patient has many social stressors that cannot be remedied on a psychiatric unit. There were no behavioral issues over the weekend. Diagnostic Results: MDD, recurrent, severe no psychosis DAVID Medication Change: No ( ) Medical Record Reviewed: Yes Mental Status Examination - Cognitive Function Orientation: Person, Place, Situation Memory: Impaired Attention: WNL Concentration: Poor (Somewhat better) Association: WNL Fund of Knowledge: Poor (Baseline) - Mood Mood: Depressed - Affect Affect: Constricted, Flat - Speech Speech: Appropriate - Formal Thought Process Formal Thought Process: No Impairment - Suicidal Ideation Suicidal Ideation: No - Homicidal Ideation Homicidal Ideation: No Goal/Treatment Plan - Goal/Treatment Plan Need for Continued Stay: Remain at risks for inpatient hospitalization, Severe depression anxiety, Discharge may exacerbated symptoms, Severe functional impairment Progress Toward Problem(s) and Goals/Treatment Plan: * c/w current treatment and plan * No new weekend lab results thus far * Vitals reviewed and noted below: Selected Entries 01/21/19 01/21/19 01/21/19 07:30 09:31 09:40 Temperature 97.7 F Pulse Rate 89 89 104 H Respiratory 20 Rate Blood Pressure 97/66 L 104/79 104/79 01/21/19 16:00 Temperature Pulse Rate 88 Respiratory Rate Blood Pressure 131/82 Estimated Date of D/C: 01/24/19
--- NOTE | 2019-01-22 20:49 | CP.PCM.PN ---
Subjective - Date & Time of Evaluation Date of Evaluation: 01/22/19 Time of Evaluation: 08:00 - Subjective Subjective: Patient is admitted to the [facility] Behavioral care unit with anxiety and depression. She has been treated with lindane for lice. Her head was shaved. Objective - Vital Signs/Intake and Output Vital Signs (last 24 hours): Temp Pulse Resp BP Pulse Ox 97.6 F 89 18 94/65 L 96 01/22/19 07:00 01/22/19 15:54 01/22/19 07:00 01/22/19 15:54 01/12/19 16:37 - Medications Medications: Current Medications Acetaminophen (Tylenol 325mg Tab) 650 mg PO Q6H PRN PRN Reason: Pain, moderate (4-7) Last Admin: 01/22/19 15:52 Dose: 650 mg Al Hydrox/Mg Hydrox/Simethicone (Maalox Plus 30 Ml) 30 ml PO DAILY PRN PRN Reason: Indigestion / Heartburn Last Admin: 01/21/19 16:57 Dose: 30 ml Amlodipine Besylate (Norvasc) 5 mg PO DAILY [facility] Last Admin: 01/22/19 09:05 Dose: 5 mg Aspirin (Aspirin Chewable) 81 mg PO DAILY [facility] Last Admin: 01/22/19 09:04 Dose: 81 mg Atorvastatin Calcium (Lipitor) 10 mg PO DIN [facility] Last Admin: 01/22/19 16:32 Dose: 10 mg Clopidogrel Bisulfate (Plavix) 75 mg PO DAILY [facility] Last Admin: 01/22/19 09:04 Dose: 75 mg Docusate Sodium (Colace) 100 mg PO BID [facility] Last Admin: 01/22/19 15:51 Dose: 100 mg Famotidine (Pepcid) 40 mg PO HS [facility] Last Admin: 01/21/19 21:31 Dose: 40 mg Hydroxyzine Pamoate (Vistaril) 50 mg PO Q8 PRN; Protocol PRN Reason: Anxiety Last Admin: 01/20/19 14:00 Dose: 50 mg Ketoconazole (Nizoral) 0 ml TOP MWF [facility] Last Admin: 01/21/19 13:27 Dose: Not Given Lorazepam (Ativan) 1 mg PO BID [facility]; Protocol Last Admin: 01/22/19 15:51 Dose: 1 mg Magnesium Hydroxide (Milk Of Magnesia) 30 ml PO DAILY PRN PRN Reason: Constipation Metoprolol Succinate (Toprol Xl) 50 mg PO BRK [facility] Last Admin: 01/22/19 09:04 Dose: 50 mg Nicotine (Nicoderm Cq) 1 patch TD DAILY [facility] Last Admin: 01/22/19 09:04 Dose: 1 patch Pantoprazole Sodium (Protonix Ec Tab) 40 mg PO 0600 [facility] Last Admin: 01/22/19 06:42 Dose: 40 mg Pregabalin (Lyrica) 50 mg PO BID [facility] Last Admin: 01/22/19 15:52 Dose: 50 mg Quetiapine Fumarate (Seroquel) 200 mg PO HS [facility]; Protocol Last Admin: 01/21/19 21:31 Dose: 200 mg Quetiapine Fumarate (Seroquel) 200 mg PO DAILY [facility]; Protocol Last Admin: 01/22/19 09:02 Dose: 200 mg Ursodiol (Actigall) 300 mg PO BID [facility] Last Admin: 01/22/19 15:52 Dose: 300 mg Venlafaxine HCl (Effexor) 150 mg PO DAILY [facility] Last Admin: 01/22/19 09:05 Dose: 150 mg Ziprasidone (Geodon Cap) 20 mg PO Q6H PRN; Protocol PRN Reason: Agitation Ziprasidone (Geodon Inj) 20 mg IM Q6H PRN; Protocol PRN Reason: Agitation Zolpidem Tartrate (Ambien) 10 mg PO HS PRN; Protocol PRN Reason: Insomnia Last Admin: 01/21/19 21:31 Dose: 10 mg - Labs Labs: 01/17/19 08:20 01/17/19 08:20 - Constitutional Appears: No Acute Distress - Head Exam Head Exam: ATRAUMATIC, NORMOCEPHALIC - Respiratory Exam Respiratory Exam: Clear to Ausculation Bilateral, NORMAL BREATHING PATTERN - Cardiovascular Exam Cardiovascular Exam: +S1, +S2 - Neurological Exam Neurological Exam: Alert, Awake, Oriented x3 Assessment and Plan - Assessment and Plan (Free Text) Assessment: Gastritis CAD HTN HLP Gallbladder disease Anxiety/Depression Plan: continue current medications continue behavioral treatment as per psychiatry
[2019-01-23] MEDS: Pantoprazole 40 mg EC Tab PO SCH (06:42)
[2019-01-23 07:00] VITALS: RESP 20
[2019-01-23] MEDS: Metoprolol Succinate 50 mg XL Tab PO SCH (08:36)
--- NOTE | 2019-01-23 10:16 | PN ---
DATE: 01/23/2019 SUBJECTIVE: The patient is in [facility] in [place] in room 518, bed 2, [facility]. The patient is a 58-year-old female, she was admitted with depression. She also has history of coronary artery disease, gallbladder disease, gastritis and hypertension. The patient has recent history of seborrheic dermatitis of the scalp. The patient has history of lice infection of the scalp and body. The patient was treated for that with lindane. The patient is seen this morning, she is improving very steadily. PHYSICAL EXAMINATION VITAL SIGNS: The patient's pulse is 75, blood pressure 110/75 and respirations are 20. HEENT: The patient's head is normocephalic, except the excoriations that are healing on the scalp. NECK: The thyroid is not enlarged. JVP is flat. LUNGS: Clear. HEART: Normal sinus rhythm. S1 and S2 present. ABDOMEN: Soft. Liver and spleen not palpable. CENTRAL NERVOUS SYSTEM: No focal deficit. MEDICATIONS: The patient's list of medications consist of Actigall, Ambien, aspirin, Atrovent, Colace, Effexor, Geodon p.r.n. The patient is on Lipitor, Lyrica, nicotine patch, amlodipine, Pepcid, Plavix, pantoprazole, Seroquel, metoprolol, and also hydroxyzine. DIET: The patient's diet is heart-healthy diet. LABORATORY DATA: The patient's lab work done on 01/17/2019 are within normal range. CBC and hemoglobin are okay. The patient's chemistries has no abnormalities except for mild BUN elevation and as mentioned the patient is improving steadily. Jose Alfredo Bolanos MD [facility]
--- NOTE | 2019-01-23 10:43 | PCM.PYCHPN ---
Psychiatric Progress Note - Psychiatric Progress Note Patient seen today, length of contact: 30min Problems Identified/Issues Discussed: I reviewed recent notes and met with patient at bedside. Patient remains friendly and well-oriented during my questioning. Indicates that she remains depressed however mood is improving a little and she denies any perceptual disturbance. Patient denies any new side effects and asks for an increase in effexor today due to continued symptoms. Slept well with ambien. I am aware of reports indicating patient was observed talking to herself, her thought process remains clear and coherent during my interview. She has been more visible and engaging a little more however, overall, her affect remains constricted with low motivation. Patient has many social stressors that cannot be remedied on a psychiatric unit. There were no behavioral issues over the weekend. Diagnostic Results: MDD, recurrent, severe no psychosis DAVID Medication Change: Yes (Increased effexor) Medical Record Reviewed: Yes Mental Status Examination - Cognitive Function Orientation: Person, Place, Situation Memory: Impaired Attention: WNL Concentration: Poor (Somewhat better) Association: WNL Fund of Knowledge: Poor (Baseline) - Mood Mood: Depressed - Affect Affect: Constricted, Flat - Speech Speech: Appropriate - Formal Thought Process Formal Thought Process: No Impairment - Suicidal Ideation Suicidal Ideation: No - Homicidal Ideation Homicidal Ideation: No Goal/Treatment Plan - Goal/Treatment Plan Need for Continued Stay: Remain at risks for inpatient hospitalization, Severe depression anxiety, Discharge may exacerbated symptoms, Severe functional impairment Progress Toward Problem(s) and Goals/Treatment Plan: * c/w current treatment and plan * Appreciate f/u by Dr. Bolanos on January 22 and January 23, 2019~patient is improving steadily. * No new weekend lab results * Effexor increased to 150 mg + 37.5 mg on 01/23/19 for continued depression * Vitals reviewed and noted below: Selected Entries 01/22/19 01/22/19 07:00 15:54 Temperature 97.6 F Pulse Rate 86 89 Respiratory 18 Rate Blood Pressure 119/80 94/65 L Estimated Date of D/C: 01/24/19
[2019-01-24] MEDS: Pantoprazole 40 mg EC Tab PO SCH (05:54)
[2019-01-24 07:14] VITALS: BP 100/66; PULSE 97; TEMP 97.9
[2019-01-24] MEDS ORDERED: Venlafaxine 37.5 mg ER Cap PO SCH (08:00)
[2019-01-24] MEDS: Metoprolol Succinate 50 mg XL Tab PO SCH (08:48)
--- NOTE | 2019-01-24 10:09 | PN ---
DATE: 01/24/2019 LOCATION: The patient is in [facility] in [place] in the Behavioral Care Unit. SUBJECTIVE: The patient is seen this morning. She is comfortable. She was admitted with depression. She also has infection of the scalp with lice. She also had excoriating seborrheic keratosis of the scalp. She has past history of coronary artery disease, hypertension, gastritis and gallbladder disease. PHYSICAL EXAMINATION: VITAL SIGNS: This morning, the pulse is 97, blood pressure 100/66 and respirations are 20. The patient's scalp shows evidence of excoriations that are healing. NECK: Within normal limits. LUNGS: Clear. HEART: Normal sinus rhythm. ABDOMEN: Soft. Liver and spleen not palpable. CENTRAL NERVOUS SYSTEM: The patient has no focal deficits. ASSESSMENT AND PLAN: We will continue current management. All her medications will be continued, there are no changes. The patient's blood work is stable. We will follow up medically. Jose Alfredo Bolanos MD [facility]
--- NOTE | 2019-01-24 16:55 | PCM.PYCHDC ---
Mental Status Examination - Mental Status Examination Orientation: Person, Place, Situation, Time Memory: Impaired (Baseline) Mood: Neutral Affect: Constricted Speech: Appropriate Attention: Poor (Improvement) Concentration: Poor (Was) Association: WNL Fund of Knowledge: Poor (Baseline) Formal Thought Process: No Impairment Description of patient's judgement and insight: Pt has improved insight into mental and medical illness, pt was compliant with medications and unit rules and regulations, pt was attending therapy groups minimally, overall was calm, cooperative, socially appropriate, no behavioral incidents, no agitation, no aggression. Psychotic Thoughts and Behaviors: Pt denied v/a/t hallucinations, denied paranoid ideations, pt does not appear to be psychotic, and thought process is goal directed. Suicidal Ideation: No Current Homicidal Ideation?: No Plan: pt adamantly denied thoughts of harming self or others denied intent or plan. Discharge Summary - Discharge Note Reason for Hospitalization: Patient was admitted to the psychiatric inpatient unit for evaluation and stabilization of depressive symptoms and possible suicidal ideations Psychiatric History (includes Medical, Family, Personal Hx): See HPI Laboratory Data: 01/17/19 08:20 01/17/19 08:20 Lab Results 01/17/19 08:20: Sodium 142, Potassium 4.5, Chloride 105, Carbon Dioxide 29, Anion Gap 13, BUN 22 H, Creatinine 0.8, Est GFR ( Amer) > 60, Est GFR (Non-Af Amer) > 60, Random Glucose 88, Calcium 9.6, Total Bilirubin 0.2, AST 17, ALT 12, Alkaline Phosphatase 56, Total Protein 7.5, Albumin 4.0, Globulin 3.5, Albumin/Globulin Ratio 1.1 01/17/19 08:20: WBC 5.3 D, RBC 4.58, Hgb 12.7, Hct 40.4, MCV 88.2, MCH 27.7, MCHC 31.4, RDW 15.5 H, Plt Count 339, MPV 10.2, Neut % (Auto) 29.1 L, Lymph % (Auto) 40.8 H, [place] % (Auto) 7.7 H, Eos % (Auto) 21.5 H, Baso % (Auto) 0.9, Lymph # (Auto) 2.2, [place] # (Auto) 0.4, Eos # (Auto) 1.1 H, Baso # (Auto) 0.05, Absolute Neuts (auto) 1.54, Neutrophils % (Manual) 26 L, Lymphocytes % (Manual) 39 H, Monocytes % (Manual) 11 H, Eosinophils % (Manual) 23 H, Basophils % (Manual) 1, Platelet Evaluation Normal 01/13/19 07:15: Free T4 0.89, TSH 3rd Generation 3.63 01/13/19 07:15: Fasting Glucose 91, Triglycerides 73, Cholesterol 201 H, LDL Cholesterol Direct 114, HDL Cholesterol 56 01/13/19 07:00: RPR Nonreactive 01/12/19 15:20: Urine Opiates Screen Negative, Urine Methadone Screen Negative, Ur Barbiturates Screen Negative, Ur Phencyclidine Scrn Negative, Ur Amphetamines Screen Negative, U Benzodiazepines Scrn Negative, U Oth Cocaine Metabols Negative, U Cannabinoids Screen Negative 01/12/19 15:20: Urine Color Dark yellow, Urine Appearance Clear, Urine pH 6.5, Ur Specific [place] >= 1.030, Urine Protein 30 H, Urine Glucose (UA) Negative, Urine Ketones 40 H, Urine Blood Negative, Urine Nitrate Negative, Urine Bilirubin Moderate H, Urine Urobilinogen 1.0 H, Ur Leukocyte Esterase Trace H, Urine RBC None, Urine WBC 5 - 10 H, Ur Epithelial Cells 10 - 12 H, Urine Juan Jose teria Mod 01/12/19 12:27: Alcohol, Quantitative < 10 01/12/19 12:27: Salicylates < 1 L, Acetaminophen < 10.0 L 01/12/19 12:27: Sodium 141, Potassium 4.1, Chloride 102, Carbon Dioxide 24, Anion Gap 20, BUN 13, Creatinine 0.9, Est GFR ( Amer) > 60, Est GFR (Non- Af Amer) > 60, Random Glucose 98, Calcium 9.9, Total Bilirubin 0.4, AST 24, ALT < 6 L, Alkaline Phosphatase 83, Total Protein 8.3, Albumin 4.2, Globulin 4.1, Albumin/Globulin Ratio 1.0 L 01/12/19 12:27: WBC 7.4, RBC 4.65, Hgb 13.4, Hct 40.3, MCV 86.7, MCH 28.8, MCHC 33.3, RDW 15.4 H, Plt Count 394, MPV 9.7, Neut % (Auto) 53.0, Lymph % (Auto) 23.6, [place] % (Auto) 8.4 H, Eos % (Auto) 13.5 H, Baso % (Auto) 1.5, Lymph # (Auto) 1.8, [place] # (Auto) 0.6, Eos # (Auto) 1.0 H, Baso # (Auto) 0.11, Absolute Neuts (auto) 3.94 Vital Signs Temp Pulse Resp BP Pulse Ox 01/24/19 08:48 97 H 100/66 01/24/19 07:14 97.9 F 97 H 20 100/66 01/23/19 16:20 76 118/80 01/23/19 08:36 75 109/75 01/23/19 08:35 76 109/75 01/23/19 07:00 98.4 F 75 20 109/75 01/22/19 15:54 89 94/65 L 01/22/19 09:05 86 119/80 01/22/19 09:04 86 119/80 01/22/19 07:00 97.6 F 86 18 119/80 01/21/19 16:00 88 131/82 01/21/19 09:40 104 H 104/79 01/21/19 09:31 89 104/79 01/21/19 07:30 97.7 F 89 20 97/66 L 01/20/19 16:00 99 H 103/74 01/20/19 09:38 112 H 127/80 01/20/19 09:37 112 H 127/80 01/20/19 07:15 98.6 F 112 H 20 85/47 L 01/19/19 16:00 97 H 123/67 01/19/19 08:57 68 105/73 01/19/19 08:56 68 105/73 01/19/19 07:19 97.6 F 60 20 105/73 01/18/19 16:00 82 102/66 01/18/19 10:30 75 114/74 01/18/19 10:28 75 114/74 01/18/19 07:25 97.9 F 75 20 114/74 01/17/19 15:59 78 109/77 01/17/19 11:20 101 H 136/83 01/17/19 11:16 101 H 136/83 01/16/19 10:36 101 H 136/83 01/16/19 10:35 101 H 136/83 01/16/19 10:32 98.4 F 101 H 17 136/83 01/15/19 16:00 87 118/83 01/15/19 07:24 97.6 F 90 20 113/82 01/14/19 11:01 89 119/69 01/14/19 10:58 89 119/69 01/14/19 07:06 97.2 F L 89 20 119/69 01/13/19 16:00 98 H 104/54 L 01/13/19 09:16 106 H 148/83 01/13/19 07:16 97.6 F 106 H 20 148/83 01/12/19 16:37 98.3 F 92 H 18 129/80 96 01/12/19 12:39 97.7 F 95 H 17 158/87 H 99 01/12/19 12:31 97.7 F 95 H 17 158/87 H 99 Consultations:: List each consultation separately and include: 1. Reason for request. 2. Findings. 3. Follow-up Consultations: Medical consult appreciated See notes for more detailed information. Summary of Hospital Course include:: 1. Description of specific treatment plan utilized for patients during their course of treatmen. 2. Summarize the time- course for resolution of acute symptoms and/or regressed behaviors. 3. Describe issues identified and worked on during hospitalization. 4. Describe medication utilized. 5. Describe medical problems identified and treated. 6. Reassessment of suicide risk Summary of Hospital Course: shortly, pt is 58 year old female, self reported h/o depression and anxiety, two previous psychiatric admission, most recent was in this facility in October 2018, h/o suicidal attempts, most recent was about 7years ago, pt lives in boarding home, pt brought herself to the hospital looking for help for worsening of her depression and anxiety, possible suicidal ideation, passive wish to be . 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 Patient came to the hospital looking for help for her depressive symptoms, hopelessness, helplessness, wo rthlessness. Patient also had passive wish to be . Patient reported that she has a lot of stress in her life including "money, health, home, property" on further detailed questioning patient was very vague about her concerns, patient did not want to discuss her money situation, patient reported that she lost her house about 30 years ago. Patient presented with flat affect, concrete thought process, no abstractive thinking. On second day of admission, patient was found to be infiltrated with lice, pt needed to be on contact isolation, despite the two treatment with Lindane Shampoo, pt's hair needed to be shaved. Patient was stabilized on the following medications Vistaril 50 mg every 8 hours as needed for anxiety Ativan 1 mg twice a day as needed for anxiety Seroquel 200 mg twice a day for mood stabilization Lyrica 50 mg twice a day Effexor 225 mg daily for depression and anxiety Ambien 10 mg at the nighttime as needed for insomnia Patient tolerated medications well, no side effects observed or reported, AIMS 0, no EPS. Patient was seen by medical team, please see medical team notes for more detailed information. Patient improved, anxiety was much better, patient was not interested to participate in unit activities, was attending therapy groups only as observe, not participating in discussions. Patient reached maximum effect from this acute psychiatric inpatient unit stabilization, patient deemed not in any imminent danger to self or others, can be follow-up with outpatient psychiatrist . At the time of the discharge patient pose no imminent danger to self or others, will be following up at [facility] with , information about follow up appointment, time and address provided to the pt, (see note for more detailed information). It is a patient responsibility to follow up with outpatient clinic, PMD as well as specialists In case patient will need to obtain results of studies pending at discharge, patient was provided with contact information of Psychiatric Inpatient unit [phone] as well as Medical Record Department [phone], as well as [facility] team [phone]. Nicotine patch was provided Patient denied using drugs [facility] smoking cessation treatment program information was provided by the pt was provided with prescriptions (see medication reconciliation form) Pt was educated about safety plan in case of worsening of symptoms or in case of suicidal or homicidal ideation call 911 or go to the nearest ER, also was educated to take meds as prescribed and stay away from drugs, pt verbalized understanding. 01/12/19 12:27 01/12/19 12:27 Lab Results 01/13/19 07:15: Free T4 0.89, TSH 3rd Generation 3.63 01/13/19 07:15: Fasting Glucose 91, Triglycerides 73, Cholesterol 201 H, LDL Cholesterol Direct 114, HDL Cholesterol 56 01/13/19 07:00: RPR Nonreactive 01/12/19 15:20: Urine Opiates Screen Negative, Urine Methadone Screen Negative, Ur Barbiturates Screen Negative, Ur Phencyclidine Scrn Negative, Ur Amphetamines Screen Negative, U Benzodiazepines Scrn Negative, U Oth Cocaine Metabols Negative, U Cannabinoids Screen Negative 01/12/19 15:20: Urine Color Dark yellow, Urine Appearance Clear, Urine pH 6.5, Ur Specific [place] >= 1.030, Urine Protein 30 H, Urine Glucose (UA) Negative, Urine Ketones 40 H, Urine Blood Negative, Urine Nitrate Negative, Urine Bilirubin Moderate H, Urine Urobilinogen 1.0 H, Ur Leukocyte Esterase Trace H, Urine RBC None, Urine WBC 5 - 10 H, Ur Epithelial Cells 10 - 12 H, Urine Bacteria Mod 01/12/19 12:27: Alcohol, Quantitative < 10 01/12/19 12:27: Salicylates < 1 L, Acetaminophen < 10.0 L 01/12/19 12:27: Sodium 141, Potassium 4.1, Chloride 102, Carbon Dioxide 24, Anion Gap 20, BUN 13, Creatinine 0.9, Est GFR ( Amer) > 60, Est GFR (Non- Af Amer) > 60, Random Glucose 98, Calcium 9.9, Total Bilirubin 0.4, AST 24, ALT < 6 L, Alkaline Phosphatase 83, Total Protein 8.3, Albumin 4.2, Globulin 4.1, Albumin/Globulin Ratio 1.0 L 01/12/19 12:27: WBC 7.4, RBC 4.65, Hgb 13.4, Hct 40.3, MCV 86.7, MCH 28.8, MCHC 33.3, RDW 15.4 H, Plt Count 394, MPV 9.7, Neut % (Auto) 53.0, Lymph % (Auto) 23.6, [place] % (Auto) 8.4 H, Eos % (Auto) 13.5 H, Baso % (Auto) 1.5, Lymph # (Auto) 1.8, [place] # (Auto) 0.6, Eos # (Auto) 1.0 H, Baso # (Auto) 0.11, Absolute Neuts (auto) 3.94 Vital Signs Temp Pulse Resp BP Pulse Ox 01/13/19 09:16 106 H 148/83 01/13/19 07:16 97.6 F 106 H 20 148/83 01/12/19 16:37 98.3 F 92 H 18 129/80 96 01/12/19 12:39 97.7 F 95 H 17 158/87 H 99 01/12/19 12:31 97.7 F 95 H 17 158/87 H 99 - Diagnosis (1) Depression Status: Chronic Priority: Medium (2) Anxiety Status: Chronic Priority: High - Final Diagnosis (DSM 5) Condition upon Discharge: STABLE Disposition: HOME/ ROUTINE Follow-up Treatment Plan: At the time of the discharge patient pose no imminent danger to self or others, will [facility] with , information about follow up appointment, time and address provided to the pt, (see SW note for more detailed information). It is a patient responsibility to follow up with outpatient clinic, PMD as well as specialists Prescriptions/Medication Reconciliation: amLODIPine [Norvasc] 5 mg PO DAILY #7 tab Aspirin [Aspirin Chewable] 81 mg PO DAILY #7 chew Atorvastatin [Lipitor] 10 mg PO DIN #7 tab Clopidogrel [Plavix] 75 mg PO DAILY #7 tab Docusate [Colace] 100 mg PO BID #14 cap Famotidine [Pepcid] 40 mg PO HS #7 tab hydrOXYzine Pamoate [Vistaril] 50 mg PO Q8 PRN #45 cap PRN Reason: Anxiety LORazepam [Ativan] 1 mg PO BID #30 tab Metoprolol Succinate XL [Toprol XL] 50 mg PO BRK #7 tab Nicotine 14 mg/24 hr [Nicoderm CQ] 1 patch TD DAILY #14 patch Pantoprazole [Protonix EC Tab] 40 mg PO 0600 #7 ect Pregabalin [Lyrica] 50 mg PO BID #14 cap Quetiapine Fumarate [Seroquel] 200 mg PO AMHS #30 tab Ursodiol [Actigall] 300 mg PO BID #7 cap Venlafaxine [Effexor-XR] 225 mg PO DAILY #45 cer Zolpidem [Ambien] 10 mg PO HS PRN #14 tab PRN Reason: Insomnia - Smoking Cessation Smoking Cessation Medication prescribed: Yes - Antipsychotic Medications Pt discharged on 2 or more routine antipsychotic medications: No
== END 2019-01-24 15:21 | disposition home or self-care (01) | DRG 885 ==
LOC: ED 12:01 → ERH 16:02 → PSYC 17:12
PROVIDERS: ADMIT Psychiatry & Neurology Psychiatry; ATTEND Psychiatry & Neurology Psychiatry
DX: F33.2 Major depressive disorder, recurrent severe without psychotic features (principal); R45.851 Suicidal ideations; E03.9 Hypothyroidism, unspecified; B86 Scabies; B85.2 Pediculosis, unspecified; E78.5 Hyperlipidemia, unspecified; I25.10 Atherosclerotic heart disease of native coronary artery without angina pectoris; I10 Essential (primary) hypertension; J44.9 Chronic obstructive pulmonary disease, unspecified; K21.9 Gastro-esophageal reflux disease without esophagitis; F41.9 Anxiety disorder, unspecified; F17.200 Nicotine dependence, unspecified, uncomplicated; K29.70 Gastritis, unspecified, without bleeding; K82.9 Disease of gallbladder, unspecified; L21.0 Seborrhea capitis; Z81.8 Family history of other mental and behavioral disorders; Z87.11 Personal history of peptic ulcer disease; Z91.010 Allergy to peanuts; Z91.018 Allergy to other foods

== ENCOUNTER 2019-01-26 23:10 | Inpatient (IN) | payer MEDICARE, MEDICAID ==
[2019-01-26 23:10] VITALS: BMI 29.2
[2019-01-26 23:17] VITALS: O2SAT 98
--- NOTE | 2019-01-27 00:32 | ED PDOC ---
Arrival/HPI - General Chief Complaint: Headache Historian: Patient - History of Present Illness Narrative History of Present Illness (Text): 01/27/19 00:28 58 year old female, whose past medical history includes hypertension and depression, presents to the emergency department with headache. Patient informs she was seen here a few days ago and discharged for similar symptoms. Patient states she was treated for a scalp wound which she believes is still not healing. She states she would like to see someone for psychiatric treatment. She states she has been suffering from insomnia and has not been taking her Ativan. Patient denies any fevers, chills, dizziness, chest pain, shortness of breath, cough, diaphoresis, abdominal pain, nausea, vomiting, diarrhea, back pain, neck pain, or any other complaint. Time/Duration: Prior to Arrival Symptom Onset: Gradual Symptom Course: Unchanged Activities at Onset: Light Past Medical History - Provider Review Nursing Documentation Reviewed: Yes - Travel History Have you recently traveled outside [place] w/in the past 3 mons?: No - Infectious Disease Hx of Infectious Diseases: None - Cardiac Hx Cardiac Disorders: Yes Hx Hypertension: Yes - Pulmonary Hx Chronic Obstructive Pulmonary Disease (COPD): Yes - Neurological HX Cerebrovascular Accident: No Hx Seizures: No - HEENT Hx HEENT Disorder: No - Renal Hx Renal Disorder: No - Endocrine/Metabolic Hx Hypothyroidism: Yes - Hematological/Oncological Hx Cancer: No - Integumentary Hx Dermatological Disorder: Yes Other/Comment: contact dermatitis - Musculoskeletal/Rheumatological Hx Musculoskeletal Disorders: No - Gastrointestinal Hx Gastrointestinal Disorders: Yes Hx Gall Bladder Disease: Yes Hx Gastroesophageal Reflux: Yes - Genitourinary/Gynecological Hx Sexually Transmitted Diseases: No - Psychiatric Hx Psychophysiologic Disorder: Yes Hx Substance Use: No - Surgical History Hx Musculoskeletal Surgery: Yes - Anesthesia Hx Anesthesia: Yes Hx Anesthesia Reactions: No Hx Malignant Hyperthermia: No Family/Social History - Physician Review Nursing Documentation Reviewed: Yes Family/Social History: No Known Family HX Smoking Status: Heavy Smoker > 10 Cigarettes Daily Hx Alcohol Use: No Hx Substance Use: No Allergies/Home Meds Allergies/Adverse Reactions: Allergies chocolate flavor Allergy (Verified 01/26/19 23:16) RASH peanut Allergy (Verified 01/26/19 23:16) ANGIOEDEMA Review of Systems - Physician Review All systems were reviewed & negative as marked: Yes - Review of Systems Constitutional: absent: Fevers, Night Sweats Respiratory: absent: SOB, Cough Cardiovascular: absent: Chest Pain Gastrointestinal: absent: Abdominal Pain, Diarrhea, Nausea, Vomiting Musculoskeletal: absent: Back Pain, Neck Pain Neurological: Headache Endocrine: absent: Diaphoresis Physical Exam Vital Signs Reviewed: Yes Vital Signs Temp Pulse Resp BP Pulse Ox 01/26/19 23:16 97.6 F 84 18 131/86 98 Temperature: Afebrile Blood Pressure: Normal Pulse: Regular Respiratory Rate: Normal Appearance: Positive for: Well-Appearing, Non-Toxic, Comfortable Pain Distress: None Mental Status: Positive for: Alert and Oriented X 3 - Systems Exam Head: Present: Atraumatic, Normocephalic, Other (Healing excoriation noted to the occiput, no purulent discharge noted ) Pupils: Present: PERRL Extroacular Muscles: Present: EOMI Conjunctiva: Present: Normal Mouth: Present: Moist Mucous Membranes Neck: Present: Normal Range of Motion Respiratory/Chest: Present: Clear to Auscultation, Good Air Exchange. No: Respiratory Distress, Accessory Muscle Use Cardiovascular: Present: Regular Rate and Rhythm, Normal S1, S2. No: Murmurs Abdomen: No: Tenderness, Distention, Peritoneal Signs Back: Present: Normal Inspection Upper Extremity: Present: Normal Inspection. No: Cyanosis, Edema Lower Extremity: Present: Normal Inspection. No: Edema Neurological: Present: Speech Normal, Motor Func Grossly Intact, Normal Sensory Function Skin: Present: Warm, Dry, Normal Color. No: Rashes Psychiatric: Present: Alert, Oriented x 3, Anxious Medical Decision Making ED Course and Treatment: 01/27/19 00:39 Impression: 58 year old female presents with scalp wound. Plan: -- Bacitracin --Labs --CXR --EKG --Permethrin Cream -- Ativan --Tylenol --Motrin --Zofran -- Reassess and disposition Prior Visits: Notes and results from previous visits were reviewed. Progress Notes: 01/27/19 01:09 Patient refused Motrin, but requests Zofran. PES ultrasound tech called and informed he will see patient shortly. 01/27/19 01:41 PES ultrasound tech Ranjan blackwoodems patient eligible for psychiatric admission at this time. Labs ordered. 01/27/19 03:19 Labs reviewed. Patient is deemed medically cleared and ready for transfer to the floor. - Lab Interpretations Lab Results: 01/27/19 02:25 01/27/19 02:25 Lab Results 01/27/19 02:25: Salicylates < 1 L, Acetaminophen < 10.0 L 01/27/19 02:25: Free T4 1.31 01/27/19 02:25: Sodium 137, Potassium 3.8, Chloride 101, Carbon Dioxide 27, Anion Gap 13, BUN 16, Creatinine 0.7, Est GFR ( Amer) > 60, Est GFR (Non- Af Amer) > 60, Random Glucose 95, Calcium 9.5, Total Bilirubin 0.5, AST 21, ALT 13, Alkaline Phosphatase 71, Total Protein 7.7, Albumin 4.2, Globulin 3.5, Albumin/Globulin Ratio 1.2 01/27/19 02:25: WBC 9.1 D, RBC 4.33, Hgb 12.4, Hct 37.7, MCV 87.1, MCH 28.6, MCHC 32.9, RDW 15.8 H, Plt Count 332, MPV 9.5, Neut % (Auto) 58.1, Lymph % (Auto) 30.8, [place] % (Auto) 7.5 H, Eos % (Auto) 3.3, Baso % (Auto) 0.3, Lymph # (Auto) 2.8, [place] # (Auto) 0.7 H, Eos # (Auto) 0.3, Baso # (Auto) 0.03, Absolute Neuts (auto) 5.29 01/27/19 02:00: Urine Opiates Screen Negative, Urine Methadone Screen Negative, Ur Barbiturates Screen Negative, Ur Phencyclidine Scrn Negative, Ur Amphetamines Screen Negative, U Benzodiazepines Scrn Negative, U Oth Cocaine Metabols Negative, U Cannabinoids Screen Negative 01/27/19 02:00: Urine Color Yellow, Urine Appearance Clear, Urine pH 6.0, Ur S pecific [place] 1.025, Urine Protein Negative, Urine Glucose (UA) Negative, Urine Ketones Trace H, Urine Blood Negative, Urine Nitrate Negative, Urine Bilirubin Small H, Urine Urobilinogen 0.2, Ur Leukocyte Esterase Small H, Urine RBC Pending, Urine WBC Pending I have reviewed the lab results: Yes - EKG Interpretation EKG Interpretation (Text): 01/27/19 02:10 Normal sinus rhythm @ 81bpm No ST elevations, No T wave inversions. Interpreted by ED Physician: Yes Type: 12 lead EKG - Scribe Statement The provider has reviewed the documentation as recorded by the Jayibcaitlin Hancock Provider Scribe Attestation: All medical record entries made by the Scribe were at my direction and personally dictated by me. I have reviewed the chart and agree that the record accurately reflects my personal performance of the history, physical exam, medical decision making, and the department course for this patient. I have also personally directed, reviewed, and agree with the discharge instructions and disposition. Disposition/Present on Arrival - Present on Arrival Any Indicators Present on Arrival: No History of DVT/PE: No History of Uncontrolled Diabetes: No Urinary Catheter: No History of Decub. Ulcer: No History Surgical Site Infection Following: None - Disposition Have Diagnosis and Disposition been Completed?: Yes Diagnosis: Anxiety Disposition: HOSPITALIZED Disposition Time: 03:20 Patient Plan: Admission Condition: STABLE
[2019-01-27] MEDS ORDERED: Bacitracin 500 Units/gm Oint Foilpak UD TOP STA (00:36)
[2019-01-27] MEDS ORDERED: Permethrin 5% Cream(60 gm) TOP ONE (01:39)
[2019-01-27 02:36] LABS: BASO # 0.03 K/mm3 (0.0-2.0); BASO % 0.3 % (0.0-3.0); EOS # 0.3 (0.0-0.7); EOS % 3.3 % (1.5-5.0); HEMOGLOBIN 12.4 g/dL (12.0-16.0); LYMPH # 2.8 (1.2-3.4); LYMPH % 30.8 % (22.0-35.0); MEAN CELL VOLUME 87.1 fl (80.0-105.0); MEAN CORPUSCULAR HEMOGLOBIN 28.6 pg (25.0-35.0); MEAN CORPUSCULAR HGB CONC 32.9 g/dl (31.0-37.0); MEAN PLATELET VOLUME 9.5 fl (7.0-11.0); MONO # 0.7 (0.1-0.6); MONO % 7.5 % (1.0-6.0); RBC 4.33 10^6/uL (3.5-6.1); RED CELL DISTRIBUTION WIDTH 15.8 % (11.5-14.5); WHITE BLOOD COUNT 9.1 10^3/uL (4.5-11.0)
[2019-01-27 02:39] LABS: URINE BILIRUBIN SMALL (NEGATIVE); URINE BLOOD NEGATIVE (NEGATIVE); URINE GLUCOSE (UA) NEGATIVE (NEGATIVE); URINE LEUKOCYTE ESTERASE SMALL Leu/uL (NEGATIVE); URINE PROTEIN NEGATIVE mg/dL (<30 mg/dL); URINE UROBILINOGEN 0.2 E.U./dL (<1 E.U./dL)
[2019-01-27 02:43] LABS: ACETAMINOPHEN < 10.0 ug/ml (10.0-20.0); SALICYLATE < 1 mg/dL (2.0-20.0)
[2019-01-27 02:49] LABS: URINE APPEARANCE CLEAR (CLEAR); URINE COLOR YELLOW (YELLOW)
[2019-01-27 03:01] LABS: BENZODIAZEPINES, UR NEGATIVE (NEGATIVE)
[2019-01-27 03:12] LABS: ALB/GLOB RATIO 1.2 (1.1-1.8); ALBUMIN 4.2 g/dL (3.0-4.8); ALT/SGPT 13 U/L (7-56); AST/SGOT 21 U/L (14-36); BLOOD UREA NITROGEN 16 mg/dL (7-21); CALCIUM 9.5 mg/dL (8.4-10.5); GFR NON-AFRICAN AMERICAN > 60
[2019-01-27 03:13] LABS: BARBITURATES, UR NEGATIVE (NEGATIVE); OPIATES, UR NEGATIVE (NEGATIVE); PHENCYCLIDINE, UR NEGATIVE (NEGATIVE)
[2019-01-27 03:28] LABS: URINE BACTERIA OCC /hpf; URINE RBC 0 - 2 /hpf (0-2)
[2019-01-27] MEDS ORDERED: Alum-Mag Hydrox-Simethicone Susp (30 mL) PO PRN (03:45)
[2019-01-27] MEDS ORDERED: Magnesium Hydroxide Susp 30 ml UD PO PRN (03:45)
--- NOTE | 2019-01-27 04:24 | PCM.BM ---
<Butch Stoddard - Last Filed: 01/27/19 04:20> Treatment Plan Problems - Problems identified on initial assessmt Anxiety Date Initiated: 01/27/19 Time Initiated: : Assessment reference: NA Status: Active Ineffective coping Date Initiated: 01/27/19 Time Initiated: :21 Assessment reference: NA Status: Active Altered sleep pattern Date Initiated: 01/27/19 Time Initiated: : Assessment reference: NA Status: Active Treatment assets and liabiliti Patient Assests: cooperative, motivated, ADL independent, cognitively intact, good interpersonal skills Patient Liabilities: live alone, poor support system, medical problems - Milieu Protocol Maintain good personal hygiene: daily Encourage regular showers, daily Remind patient to perform daily oral care, daily Assist patient to perform ADL's Conduct patient checks and document Observation sheet: Q15 minutes Maintain personal safety: every shift Educate patient to report safety concerns to staff, every shift Monitor environment for contraband/sharps Medication safety: Monitor for expected outcome, potential side effects: every shift, Assess barriers to learning: every shift, Assess readiness for medication education: every shift Family Contact Family involvement: Patient does not wish Family/SO involvement Discharge/Continuing Care - Education Needs Education Needs: Patient Medication, Patient Diagnosis/Disease Process, Patient Coping Skills, Patient Community resources, Patient Activities of Daily Living, Patient Health Practices/Safety, Patient Personal Hygiene/Grooming, Patient Aftercare Safety Plan - Discharge Discharge Criteria: Tolerates medication w/o severe side effects, Free of Suicidal thoughts, Normal sleep pattern, Ability to care for self, Reduction of target symptoms [facility]:: [facility] <Teresa Stahl - Last Filed: 01/27/19 14:55> - Diagnosis (1) Depression Status: Chronic Interventions: 01/27/19 14:55 Psychoeducation Psychopharmacology/adjustment of medications as needed/ monitoring possible side effects Evaluate pt on daily basis Compliance with medications and follow up appointments Suicide and homicide risk assessment and prevention Relapse prevention Reduction of symptoms Improve functional status Family involvement As outpatient: cognitive behavioral therapy <Maegan Rooney - Last Filed: 01/28/19 15:08> Family Contact Family involvement: Famliy/SO not involved - Outside Agency [facility] Care involvment: Information-sharing Agency contact name: [facility]
--- NOTE | 2019-01-27 08:40 | RAD ---
Date of service: 01/27/2019 HISTORY: psych screen COMPARISON: Portable chest 01/12/2019. TECHNIQUE: 1 view obtained. FINDINGS: LUNGS: No active pulmonary disease. PLEURA: No significant pleural effusion identified, no pneumothorax apparent. CARDIOVASCULAR: No aortic atherosclerotic calcification present. Normal cardiac size. No pulmonary vascular congestion. OSSEOUS STRUCTURES: No significant abnormalities. VISUALIZED UPPER ABDOMEN: Normal. OTHER FINDINGS: None. IMPRESSION: No interval acute cardiopulmonary disease appreciated.
--- NOTE | 2019-01-27 09:42 | CARD ---
APPROVED REPORT Date of service: 01/27/2019 EKG Measurement Heart [id number] <Conclusion> Normal sinus rhythm Possible Left atrial enlargement Borderline ECG
[2019-01-27] MEDS: Venlafaxine 75 mg ER Cap PO SCH ×2 (11:12→12:00)
--- NOTE | 2019-01-27 14:55 | PCM.PYCHPN ---
Psychiatric Progress Note - Psychiatric Progress Note Patient seen today, length of contact: 45 minutes Patient Chief Complaint: "I do not know, I was not able to take my medications because of my depression" Problems Identified/Issues Discussed: Symptoms, medication compliance, treatment plan. Medical Problems: ?UTI Diagnostic Results: 01/27/19 02:25 01/27/19 02:25 Lab Results 01/27/19 02:25: Salicylates < 1 L, Acetaminophen < 10.0 L 01/27/19 02:25: Free T4 1.31 01/27/19 02:25: Sodium 137, Potassium 3.8, Chloride 101, Carbon Dioxide 27, Anion Gap 13, BUN 16, Creatinine 0.7, Est GFR ( Amer) > 60, Est GFR (Non- Af Amer) > 60, Random Glucose 95, Calcium 9.5, Total Bilirubin 0.5, AST 21, ALT 13, Alkaline Phosphatase 71, Total Protein 7.7, Albumin 4.2, Globulin 3.5, Albumin/Globulin Ratio 1.2 01/27/19 02:25: WBC 9.1 D, RBC 4.33, Hgb 12.4, Hct 37.7, MCV 87.1, MCH 28.6, MCHC 32.9, RDW 15.8 H, Plt Count 332, MPV 9.5, Neut % (Auto) 58.1, Lymph % (Auto) 30.8, [place] % (Auto) 7.5 H, Eos % (Auto) 3.3, Baso % (Auto) 0.3, Lymph # (Auto) 2.8, [place] # (Auto) 0.7 H, Eos # (Auto) 0.3, Baso # (Auto) 0.03, Absolute Neuts (auto) 5.29 01/27/19 02:00: Urine Opiates Screen Negative, Urine Methadone Screen Negative, Ur Barbiturates Screen Negative, Ur Phencyclidine Scrn Negative, Ur Amphetamines Screen Negative, U Benzodiazepines Scrn Negative, U Oth Cocaine Metabols Negative, U Cannabinoids Screen Negative 01/27/19 02:00: Urine Color Yellow, Urine Appearance Clear, Urine pH 6.0, Ur Specific [place] 1.025, Urine Protein Negative, Urine Glucose (UA) Negative, Urine Ketones Trace H, Urine Blood Negative, Urine Nitrate Negative, Urine Bilirubin Small H, Urine Urobilinogen 0.2, Ur Leukocyte Esterase Small H, Urine RBC 0 - 2, Urine WBC 1 - 3, Ur Epithelial Cells 1 - 3, Urine Bacteria Occ Vital Signs Temp Pulse Pulse Resp BP Pulse Ox 01/27/19 07:16 97.9 F 85 20 118/82 01/27/19 04:20 81 20 01/27/19 04:00 97.9 F 81 20 119/62 01/27/19 01:10 85 18 121/79 98 01/26/19 23:16 97.6 F 84 18 131/86 98 DSM 5 Symptoms Update: Refer to the Psychiatric Assess & History-Initial dated 01/13/19 for this H & P. Reviewed, no changes shortly, pt is 58 year old female, self reported h/o depression and anxiety, 3 previous psychiatric admission, most recent was in this facility, pt was discharged on 01/24/19, h/o suicidal attempts, most recent was about 7years ago, pt lives in boarding home, pt self referred, brought herself to the hospital looking for help for worsening of her depression and anxiety, inability to take care of self, possible suicidal ideation, passive wish to be . This fiction and nonfiction writer prose is very familiar with this patient from the previous hospitalization which took place here in [place]. Patient came to the hospital looking for help for her depressive symptoms, hopelessness, helplessness, worthlessness. Patient also had passive wish to be . washhouse worker contacted Inpatient psych unit SW, reported pt was disorganized, was knocking to other consumers doors in the boarding home, was not able to taker care of self. Pt requires further evaluation, stabilization, medication adjustment. Patient was seen today in her room, patient presented to be depressed, laying down with blanket covering her face, patient seems to be a very poor and unreliable historian, very vague answers for all of the questions, "I do not know, I feel very depressed, I do not know what to say", patient does not know what is the date today but is that she [facility]. Patient complains of the headache during the interview and brushing this fiction and nonfiction writer prose off. Patient seems to be upset over her boarding home, patient said that "I freaked out because another lady was banking on my door, I saw her while walking on the hallway..." This fiction and nonfiction writer prose is not sure what the psychotic symptoms or if there is true fact. Patient denied hearing voices, denied seeing things, but as per staff patient times observed talking to herself. Patient presented with flat affect, concrete thought process, no abstractive thinking. Patient has been infested with lice, pt needed to be on contact isolation, but not this time. Patient was stabilized on the following medications Vistaril 50 mg every 8 hours as needed for anxiety Ativan 1 mg twice a day as needed for anxiety Seroquel 200 mg twice a day for mood stabilization Lyrica 50 mg twice a day Effexor 225 mg daily for depression and anxiety Ambien 10 mg at the nighttime as needed for insomnia This fiction and nonfiction writer prose would like to emphasize the fact that prior to discharge patient presented very well, not psychotic, not depressed, patient reported that she was not taking her medication because of her "severe depression" Impression: Major depressive disorder Rule out early signs of dementia r/o delirium, due to UTI ? Medication Change: Yes (Resumed) Medical Record Reviewed: Yes Consults ordered or reviewed: Medical consult We will consider to call neurology consult Mental Status Examination - Cognitive Function Orientation: Person, Place Memory: Impaired Attention: Poor Concentration: Poor Association: Loose Fund of Knowledge: Poor - Mood Mood: Depressed, Anxious - Affect Affect: Constricted - Speech Speech: Appropriate (But underproductive, poverty of speech) - Formal Thought Process Formal Thought Process: Paranoia (to be ruled out), Loosening of associations - Suicidal Ideation Suicidal Ideation: No - Homicidal Ideation Homicidal Ideation: No Goal/Treatment Plan - Goal/Treatment Plan Need for Continued Stay: Remain at risks for inpatient hospitalization, Severe depression anxiety, Discharge may exacerbated symptoms, Failed transitioning, Severe functional impairment Progress Toward Problem(s) and Goals/Treatment Plan: Milieu/structure/supportive therapy SW consultation for discharge plan and social issues Med management meds resumed medical consult for r/o UTI Family involvement Follow up on labs Will monitor closely Pt was educated about risk/benefits and alternatives of medications, coping strategies (safety plan, suicide prevention), relapse prevention, importance of follow up with psychiatrist and therapist, stay away from drugs/alcohol/smoking
[2019-01-28] MEDS: Venlafaxine 75 mg ER Cap PO SCH (09:40)
--- NOTE | 2019-01-28 15:51 | PCM.PYCHPN ---
Psychiatric Progress Note - Psychiatric Progress Note Patient seen today, length of contact: 45 minutes Patient Chief Complaint: "I don't know, I am very depressed, I have a headache..." Problems Identified/Issues Discussed: Symptoms, medication compliance, treatment plan. Medical Problems: ?UTI Diagnostic Results: 01/27/19 02:25 01/27/19 02:25 Lab Results 01/27/19 02:25: Salicylates < 1 L, Acetaminophen < 10.0 L 01/27/19 02:25: Free T4 1.31 01/27/19 02:25: Sodium 137, Potassium 3.8, Chloride 101, Carbon Dioxide 27, Anion Gap 13, BUN 16, Creatinine 0.7, Est GFR ( Amer) > 60, Est GFR (Non- Af Amer) > 60, Random Glucose 95, Calcium 9.5, Total Bilirubin 0.5, AST 21, ALT 13, Alkaline Phosphatase 71, Total Protein 7.7, Albumin 4.2, Globulin 3.5, Albumin/Globulin Ratio 1.2 01/27/19 02:25: WBC 9.1 D, RBC 4.33, Hgb 12.4, Hct 37.7, MCV 87.1, MCH 28.6, MCHC 32.9, RDW 15.8 H, Plt Count 332, MPV 9.5, Neut % (Auto) 58.1, Lymph % (Auto) 30.8, [place] % (Auto) 7.5 H, Eos % (Auto) 3.3, Baso % (Auto) 0.3, Lymph # (Auto) 2.8, [place] # (Auto) 0.7 H, Eos # (Auto) 0.3, Baso # (Auto) 0.03, Absolute Neuts (auto) 5.29 01/27/19 02:00: Urine Opiates Screen Negative, Urine Methadone Screen Negative, Ur Barbiturates Screen Negative, Ur Phencyclidine Scrn Negative, Ur Amphetamines Screen Negative, U Benzodiazepines Scrn Negative, U Oth Cocaine Metabols Negative, U Cannabinoids Screen Negative 01/27/19 02:00: Urine Color Yellow, Urine Appearance Clear, Urine pH 6.0, Ur Specific [place] 1.025, Urine Protein Negative, Urine Glucose (UA) Negative, Urine Ketones Trace H, Urine Blood Negative, Urine Nitrate Negative, Urine Bilirubin Small H, Urine Urobilinogen 0.2, Ur Leukocyte Esterase Small H, Urine RBC 0 - 2, Urine WBC 1 - 3, Ur Epithelial Cells 1 - 3, Urine Bacteria Occ Vital Signs Temp Pulse Pulse Resp BP Pulse Ox 01/27/19 07:16 97.9 F 85 20 118/82 01/27/19 04:20 81 20 01/27/19 04:00 97.9 F 81 20 119/62 01/27/19 01:10 85 18 121/79 98 01/26/19 23:16 97.6 F 84 18 131/86 98 DSM 5 Symptoms Update: shortly, pt is 58 year old female, self reported h/o depression and anxiety, 3 previous psychiatric admission, most recent was in this facility, pt was discharged on 01/24/19, h/o suicidal attempts, most recent was about 7years ag o, pt lives in boarding home, pt self referred, brought herself to the hospital looking for help for worsening of her depression and anxiety, inability to take care of self, possible suicidal ideation, passive wish to be . This sports book writer is very familiar with this patient from the previous hospitalization which took place here in [place]. Patient came to the hospital looking for help for her de pressive symptoms, hopelessness, helplessness, worthlessness. Patient also had passive wish to be . lavender farm worker contacted Inpatient psych unit SW, reported pt was disorganized, was knocking to other consumers doors in the boarding home, was not able to taker care of self. Pt requires further e valuation, stabilization, medication adjustment. Patient was seen today at the treatment team. Patient presented to be irritable, annoyed, mildly agitated. Patient said that she wants to continue on current medications but for this sports book writer it does not make much sense because patient was readmitted. Patient reported that she feels "anxious and jumpy", but as per report from the nursing staff patient is sleeping whole day long, patient also wants to sleep during the nighttime. Moreover it is not physically possible to feel anxious and jumpy in sleep all day long. Patient is not participating in any group activities, has periods of irritability and cursing at staff. Patient presented with flat affect, concrete thought process, no abstractive thinking. Patient has been infested with lice, pt needed to be on contact isolation, but not this time. This sports book writer would like to emphasize the fact that prior to discharge patient presented very well, not psychotic, not depressed, patient reported that she was not taking her medication because of her "severe depression" Patient complains of headache, patient reported that she has history of migraine headaches, Depakote was started, neurology consult was called. Impression: Major depressive disorder Rule out early signs of dementia r/o delirium, due to UTI ? Medication Change: Yes (Resumed) Medical Record Reviewed: Yes Mental Status Examination - Cognitive Function Orientation: Person, Place Memory: Impaired Attention: Poor Concentration: Poor Association: Loose Fund of Knowledge: Poor - Mood Mood: Depressed, Anxious - Affect Affect: Constricted - Speech Speech: Appropriate (But underproductive, poverty of speech) - Formal Thought Process Formal Thought Process: Paranoia (to be ruled out), Loosening of associations - Suicidal Ideation Suicidal Ideation: No - Homicidal Ideation Homicidal Ideation: No Goal/Treatment Plan - Goal/Treatment Plan Need for Continued Stay: Remain at risks for inpatient hospitalization, Severe depression anxiety, Discharge may exacerbated symptoms, Failed transitioning, Severe functional impairment Progress Toward Problem(s) and Goals/Treatment Plan: Milieu/structure/supportive therapy SW consultation for discharge plan and social issues Med management meds resumed Seroquel discontinued Abilify 5 mg twice a day for mood stabilization Effexor 225 mg daily extended-release for depression anxiety Ativan will be continued Depakote 250 mg twice a day for headaches as well as mood stabilization medical consult for r/o UTI Family involvement Follow up on labs Will monitor closely Pt was educated about risk/benefits and alternatives of medications, coping strategies (safety plan, suicide prevention), relapse prevention, importance of follow up with psychiatrist and therapist, stay away from drugs/alcohol/smoking Estimated Date of D/C: 02/03/19
--- NOTE | 2019-01-28 16:22 | CON ---
DATE: 01/28/2019 NEUROLOGY CONSULTATION CHIEF COMPLAINT: Headache. HISTORY OF PRESENT ILLNESS: This is a 58-year-old woman with history of hypertension, depression, anxiety, who came into the psychiatric department for worsening anxiety and depression symptoms which being managed consult for headache, diffuse pressured type without aura, occasional nausea, and photophobia. No cervical pain. The patient is taking Lyrica 50 mg p.o. twice a day, which will help her headache. We will add Fioricet to acute onset. She is also on Depakote, which does help with chronic headaches as well. Neuro exam is nonfocal. PAST MEDICAL HISTORY: As above. ALLERGIES: TO CHOCOLATE FLAVOR AND PEANUT. REVIEW OF SYSTEMS: A 14-point review of systems is negative except as per the HPI. MEDICATIONS: Reviewed by nurse's reconciliation sheet. FAMILY HISTORY: Noncontributory. PHYSICAL EXAMINATION: GENERAL: The patient is seen up in bed. No acute distress. VITAL SIGNS: Temperature 98.2, pulse rate of 60, blood pressure of 106/71, respiratory rate 20, and oxygen saturation 97% on room air. HEENT: Atraumatic and normocephalic. PERRLA. Extraocular muscles intact. NECK: Supple. No JVD noted. No adenopathy noted. LUNGS: Clear to auscultation. No adventitious sounds. HEART: S1 and S2. Normal rate and rhythm. No murmurs, rubs or gallops. ABDOMEN: Soft, nontender, and nondistended. Bowel sounds present. EXTREMITIES: No clubbing, no cyanosis. Peripheral pulses are 2+ felt bilaterally. NEUROLOGIC: The patient is alert and oriented to person, place, month, and year. Speech is fluent without any errors. Cranial nerves II through XII are intact. Motor exam; moves all extremities equally. Toes are downgoing bilaterally. Sensory exam; light touch and pinprick, proprioception, and vibration is intact. DTRs are 2+ throughout. Coordination; [id number] is intact. No dysmetria noted. Gait is deferred to now. Affect is very flat and anxious. LABORATORY DATA: No new labs done today. IMPRESSION: Headache, more of a tension based headache with migraine component from underlying anxiety and depression. RECOMMENDATIONS: 1. Continue with Lyrica 50 mg p.o. twice a day for neuropathic relief. 2. Fioricet 1 tablet every 6 hours with acute onset of headache p.r.n. 3. Continue with psychiatric management and diet for underlying depression and anxiety. I recommend sleep hygiene. Thank you for this consult follow up as an outpatient. Arie Thompson MD
[2019-01-28] MEDS: Divalproex 250 mg DR (BID formulation) PO SCH (16:41)
[2019-01-28] MEDS: Apap-Butalbital-Caffeine 325-50-40mg Tab PO PRN (16:44)
[2019-01-29] MEDS: Apap-Butalbital-Caffeine 325-50-40mg Tab PO PRN ×5 (00:50→20:15)
[2019-01-29] MEDS: Venlafaxine 75 mg ER Cap PO SCH (08:34)
[2019-01-29] MEDS: Divalproex 250 mg DR (BID formulation) PO SCH ×2 (08:34→16:06)
--- NOTE | 2019-01-29 08:42 | PCM.PYCHPN ---
Psychiatric Progress Note - Psychiatric Progress Note Patient seen today, length of contact: 45 minutes Problems Identified/Issues Discussed: I reviewed recent notes and met with patient at bedside. Patient remains friendly and well-oriented during my questioning. Indicates that she remains de pressed however her headache is improving a little. She still wasn't able to sleep well last night. Her affect is constricted and tired. Patient continues to deny any perceptual disturbance, new side effects or discomfort. She has been visible at times on the unit however, overall, she appears isolative, guarded with low motivation. Patient has many social stressors that cannot be remedied on a psychiatric unit but she is interested in being placed into another boarding home. I am aware of report of [facility] rn field case manager stating patient was "agitated, disruptive, and banging on other resident's doors while in the senior living. Patient became agitated and irritable. Patient stated, "I'm not going through this again!". There have been no behavioral issues thus far over the weekend. Diagnostic Results: Major depressive disorder Rule out early signs of dementia r/o delirium, due to UTI ? Medication Change: No ( ) Medical Record Reviewed: Yes Mental Status Examination - Cognitive Function Orientation: Person, Place Memory: Impaired Attention: Poor Concentration: Poor Association: Loose Fund of Knowledge: Poor - Mood Mood: Depressed, Anxious - Affect Affect: Constricted - Speech Speech: Appropriate (But underproductive, poverty of speech) - Formal Thought Process Formal Thought Process: Paranoia (to be ruled out), Loosening of associations - Suicidal Ideation Suicidal Ideation: No - Homicidal Ideation Homicidal Ideation: No Goal/Treatment Plan - Goal/Treatment Plan Need for Continued Stay: Remain at risks for inpatient hospitalization, Severe depression anxiety, Discharge may exacerbated symptoms, Failed transitioning, Severe functional impairment Progress Toward Problem(s) and Goals/Treatment Plan: * c/w current tx and plan * No new weekend lab results thus far * Vitals reviewed and noted below: Selected Entries 01/28/19 01/28/19 07:05 16:09 Temperature 98.0 F Pulse Rate 60 94 H Respiratory 20 Rate Blood Pressure 106/71 99/63 L Estimated Date of D/C: 02/03/19
--- NOTE | 2019-01-29 14:17 | PN ---
DATE: 01/29/2019 SUBJECTIVE: The patient is in [facility] in room 518, bed 2. The patient was admitted with depression. This is a recurrent admission. The patient has past history of coronary artery disease. The patient has history of depression. The patient has history of hypertension. Also the patient has history of gallbladder disease. ALLERGIES: THE PATIENT IS ALLERGIC TO CHOCOLATE AND PEANUT. The patient is seen this morning. She says she is depressed. She cannot sleep. She does not feel well. The patient's scalp shows some excoriation from previous seborrheic dermatitis, ulceration of the scalp. The patient has had treatment for that not too long ago. The patient has a history of hypertension for which she was treated with metoprolol. The patient has history of cigarette smoking. She was placed on nicotine patch for withdrawal from nicotine. PHYSICAL EXAMINATION VITAL SIGNS: The pulse is 82, blood pressure 142/85, respirations are 20, and O2 sat is 98% on room air. GENERAL: She is able to talk. She says she is very depressed. LUNGS: Clear. HEART: Normal sinus rhythm. ABDOMEN: Soft. Liver and spleen not palpable. CENTRAL NERVOUS SYSTEM: She has no focal neurological deficits. MEDICATIONS: The patient is on Abilify 5 mg b.i.d., Ambien 5 mg daily. The patient is on Ativan 1 mg b.i.d., Depakote 250 mg b.i.d., Effexor 225 mg p.o. daily. The patient is on Fioricet for pain, Lyrica 50 mg b.i.d., magnesium, Maalox for heartburn. The patient is also getting Vistaril 50 mg daily. Currently, the patient is not on any outpatient medications. We will place the patient on metoprolol 25 mg daily. The patient will get shampoo of the scalp for seborrheic dermatitis. Diet will be heart healthy diet. PLAN: We will continue medical management followup. Jose Alfredo Bolanos MD GEO
[2019-01-30] MEDS: Apap-Butalbital-Caffeine 325-50-40mg Tab PO PRN ×6 (00:14→22:26)
[2019-01-30] MEDS: Divalproex 250 mg DR (BID formulation) PO SCH ×2 (07:48→16:28)
[2019-01-30] MEDS: Venlafaxine 75 mg ER Cap PO SCH (07:48)
--- NOTE | 2019-01-30 08:58 | PCM.PYCHPN ---
Psychiatric Progress Note - Psychiatric Progress Note Patient seen today, length of contact: 45 minutes Problems Identified/Issues Discussed: I reviewed recent notes and met with patient in the dayroom. Patient remains friendly and well-oriented during my questioning. Grooming is fair and affect is constricted but not apathetic or hopeless. Headache/migraine continues to improve. She denies any perceptual disturbance, new side effects or discomfort. She has been visible at times on the unit however, overall, she appears isolative, guarded with low motivation. Patient has many social stressors that cannot be remedied on a psychiatric unit however she is showing more interest in her disposition. Expresses some reservations about the stress of being placed into another boarding home because it will be a brand new environment and location. I am aware of report of [facility] case resource manager stating patient was "agitated, disruptive, and banging on other resident's doors while in the intermediate. Patient became agitated and irritable. Patient stated, "I'm not going through t his again!". There have been no behavioral issues thus far over the weekend. Diagnostic Results: Major depressive disorder Rule out early signs of dementia r/o delirium, due to UTI ? Medication Change: No ( ) Medical Record Reviewed: Yes Mental Status Examination - Cognitive Function Orientation: Person, Place, Situation Memory: Impaired Attention: WNL Concentration: Poor Association: Loose Fund of Knowledge: Poor - Mood Mood: Depressed, Anxious - Affect Affect: Constricted - Speech Speech: Appropriate (But underproductive, poverty of speech) - Formal Thought Process Formal Thought Process: Paranoia (to be ruled out) - Suicidal Ideation Suicidal Ideation: No - Homicidal Ideation Homicidal Ideation: No Goal/Treatment Plan - Goal/Treatment Plan Need for Continued Stay: Remain at risks for inpatient hospitalization, Severe depression anxiety, Discharge may exacerbated symptoms, Failed transitioning, Severe functional impairment Progress Toward Problem(s) and Goals/Treatment Plan: * c/w current tx and plan * Appreciate f/u by Dr. Bolanos on 01/29/19~starting metoprolol 25 mg po daily and providing shampoo for patient's scalp for seborrheic dermatitis * No new weekend lab results thus far * Vitals reviewed and noted below: Selected Entries 01/29/19 01/29/19 07:04 16:00 Temperature 97.8 F Pulse Rate 82 83 Respiratory 20 Rate Blood Pressure 142/85 139/86 Estimated Date of D/C: 02/03/19
--- NOTE | 2019-01-30 11:36 | CP.PCM.PN ---
Subjective - Date & Time of Evaluation Date of Evaluation: 01/30/19 Time of Evaluation: 08:00 - Subjective Subjective: Patient has no new complaints. She is in the behavioral care unit. Objective - Vital Signs/Intake and Output Vital Signs (last 24 hours): Temp Pulse Resp BP Pulse Ox 97.9 F 94 H 19 117/75 98 01/30/19 07:00 01/30/19 07:00 01/30/19 07:00 01/30/19 07:00 01/27/19 01:10 - Medications Medications: Current Medications Acetaminophen (Tylenol 325mg Tab) 650 mg PO Q4H PRN PRN Reason: Pain, Mild (1-3) Last Admin: 01/29/19 16:03 Dose: 650 mg Acetaminophen/Butalbital/Caffeine (Fioricet) 1 tab PO Q4H PRN PRN Reason: Headache Last Admin: 01/30/19 10:13 Dose: 1 tab Al Hydrox/Mg Hydrox/Simethicone (Maalox Plus 30 Ml) 30 ml PO DAILY PRN PRN Reason: Upset Stomach Aripiprazole (Abilify) 5 mg PO BID [facility] Last Admin: 01/30/19 07:48 Dose: 5 mg Aspirin (Aspirin Chewable) 81 mg PO DAILY [facility] Atorvastatin Calcium (Lipitor) 10 mg PO DIN [facility] Divalproex Sodium (Depakote Dr (*Bid*)) 250 mg PO BID [facility]; Protocol Last Admin: 01/30/19 07:48 Dose: 250 mg Hydroxyzine Pamoate (Vistaril) 50 mg PO Q8 PRN; Protocol PRN Reason: Anxiety Last Admin: 01/30/19 06:18 Dose: 50 mg Ketoconazole (Nizoral) 0 ml TOP MWF [facility] Lorazepam (Ativan) 1 mg PO BID [facility]; Protocol Last Admin: 01/30/19 07:48 Dose: 1 mg Magnesium Hydroxide (Milk Of Magnesia) 30 ml PO DAILY PRN PRN Reason: Constipation Metoprolol Succinate (Toprol Xl) 25 mg PO BRK [facility] Pregabalin (Lyrica) 50 mg PO BID [facility] Last Admin: 01/30/19 07:48 Dose: 50 mg Venlafaxine HCl (Effexor Xr) 225 mg PO DAILY [facility] Last Admin: 01/30/19 07:48 Dose: 225 mg Zolpidem Tartrate (Ambien) 5 mg PO HS PRN; Protocol PRN Reason: Insomnia Last Admin: 01/29/19 21:57 Dose: 5 mg - Labs Labs: 01/27/19 02:25 01/27/19 02:25 - Constitutional Appears: No Acute Distress - Head Exam Head Exam: ATRAUMATIC, NORMOCEPHALIC - Respiratory Exam Respiratory Exam: Clear to Ausculation Bilateral, NORMAL BREATHING PATTERN - Cardiovascular Exam Cardiovascular Exam: REGULAR RHYTHM, +S1, +S2 - GI/Abdominal Exam GI & Abdominal Exam: Soft, Normal Bowel Sounds. absent: Tenderness Assessment and Plan - Assessment and Plan (Free Text) Assessment: HTN HLP Dermatitis of scalp Plan: Will order Toprol 25 mg daily for hypertension, and Lipitor 10 mg daily for hyperlipidemia. Will also start Nizoral shampoo to be used on the scalp three times a week for seborrheic dermatitis of the scalp.
[2019-01-30] MEDS: Metoprolol Succinate 25 mg XL Tab PO SCH (14:09)
[2019-01-31] MEDS: Apap-Butalbital-Caffeine 325-50-40mg Tab PO PRN ×5 (02:42→18:20)
[2019-01-31] MEDS: Divalproex 250 mg DR (BID formulation) PO SCH (09:03)
[2019-01-31] MEDS: Metoprolol Succinate 25 mg XL Tab PO SCH (09:04)
[2019-01-31] MEDS: Venlafaxine 75 mg ER Cap PO SCH (09:05)
--- NOTE | 2019-01-31 12:15 | PCM.PYCHPN ---
Psychiatric Progress Note - Psychiatric Progress Note Patient seen today, length of contact: 30min Patient Chief Complaint: "I want to speak to the oem sales manager of another boarding home before I will make my decision.." Problems Identified/Issues Discussed: Symptoms, medication compliance, treatment plan. Medical Problems: ?UTI Diagnostic Results: 01/27/19 02:25 01/27/19 02:25 Lab Results 01/27/19 02:25: Salicylates < 1 L, Acetaminophen < 10.0 L 01/27/19 02:25: Free T4 1.31 01/27/19 02:25: Sodium 137, Potassium 3.8, Chloride 101, Carbon Dioxide 27, Anion Gap 13, BUN 16, Creatinine 0.7, Est GFR ( Amer) > 60, Est GFR (Non- Af Amer) > 60, Random Glucose 95, Calcium 9.5, Total Bilirubin 0.5, AST 21, ALT 13, Alkaline Phosphatase 71, Total Protein 7.7, Albumin 4.2, Globulin 3.5, Albumin/Globulin Ratio 1.2 01/27/19 02:25: WBC 9.1 D, RBC 4.33, Hgb 12.4, Hct 37.7, MCV 87.1, MCH 28.6, MCHC 32.9, RDW 15.8 H, Plt Count 332, MPV 9.5, Neut % (Auto) 58.1, Lymph % (Auto) 30.8, Turner % (Auto) 7.5 H, Eos % (Auto) 3.3, Baso % (Auto) 0.3, Lymph # (Auto) 2.8, Turner # (Auto) 0.7 H, Eos # (Auto) 0.3, Baso # (Auto) 0.03, Absolute Neuts (auto) 5.29 01/27/19 02:00: Urine Opiates Screen Negative, Urine Methadone Screen Negative, Ur Barbiturates Screen Negative, Ur Phencyclidine Scrn Negative, Ur Amphetamines Screen Negative, U Benzodiazepines Scrn Negative, U Oth Cocaine Metabols Negative, U Cannabinoids Screen Negative 01/27/19 02:00: Urine Color Yellow, Urine Appearance Clear, Urine pH 6.0, Ur Specific Street 1.025, Urine Protein Negative, Urine Glucose (UA) Negative, Urine Ketones Trace H, Urine Blood Negative, Urine Nitrate Negative, Urine Bilirubin Small H, Urine Urobilinogen 0.2, Ur Leukocyte Esterase Small H, Urine RBC 0 - 2, Urine WBC 1 - 3, Ur Epithelial Cells 1 - 3, Urine Bacteria Occ Vital Signs Temp Pulse Pulse Resp BP Pulse Ox 01/27/19 07:16 97.9 F 85 20 118/82 01/27/19 04:20 81 20 01/27/19 04:00 97.9 F 81 20 119/62 01/27/19 01:10 85 18 121/79 98 01/26/19 23:16 97.6 F 84 18 131/86 98 Temp Pulse Resp BP Pulse Ox 97.3 F L 78 18 120/88 98 01/31/19 07:00 01/31/19 09:04 01/31/19 07:00 01/31/19 09:04 01/27/19 01:10 DSM 5 Symptoms Update: shortly, pt is 58 year old female, self reported h/o depression and anxiety, 3 previous psychiatric admission, most recent was in this facility, pt was discharged on 01/24/19, h/o suicidal attempts, most recent was about 7years ago, pt lives in boarding home, pt self referred, brought herself to the hospital looking for help for worsening of her depression and anxiety, inability to take care of self, possible suicidal ideation, passive wish to be . This television script writer is very familiar with this patient from the previous hospitalization which took place here in [place]. Patient came to the hospital looking for help for her depressive symptoms, hopelessness, helplessness, worthlessness. Patient also had passive wish to be . mesh worker contacted Inpatient psych unit SW, reported pt was disorganized, was knocking to other consumers doors in the boarding home, was not able to taker care of self. Pt requires further evaluation, stabilization, medication adjustment. Patient was seen today at the dinning area, pt presented more alert, less sleepy. pt reported that she feels "okay, but my headache is bothering me", pt was seen by Neurologist , who recommended Firoricet, pt is aware of that. pt was annoyed and irritable based on RN and SW report, pt was making statements such as "girls in the boarding home was making bird noises all night long", most likely pt was psychotic and disorganized. over the weekend pt was more active and minimally participating in groups. so far pt tolerates meds well, no side effects observed or reported, AIMS 0, no EPS. Impression: Major depressive disorder Rule out early signs of dementia r/o delirium, due to UTI ? Medication Change: Yes (depakote increased) Medical Record Reviewed: Yes Consults ordered or reviewed: Medical consult Neurology consult appreciated Mental Status Examination - Cognitive Function Orientation: Person, Place, Situation Memory: Impaired Attention: WNL Concentration: Poor Association: Loose Fund of Knowledge: Poor - Mood Mood: Depressed, Anxious - Affect Affect: Constricted - Speech Speech: Appropriate (But underproductive, poverty of speech) - Formal Thought Process Formal Thought Process: Paranoia (to be ruled out) - Suicidal Ideation Suicidal Ideation: No - Homicidal Ideation Homicidal Ideation: No Goal/Treatment Plan - Goal/Treatment Plan Need for Continued Stay: Remain at risks for inpatient hospitalization, Severe depression anxiety, Discharge may exacerbated symptoms, Failed transitioning, Severe functional impairment Progress Toward Problem(s) and Goals/Treatment Plan: Milieu/structure/supportive therapy SW consultation for discharge plan and social issues Med management meds resumed Seroquel discontinued Abilify 5 mg twice a day for mood stabilization Effexor 225 mg daily extended-release for depression anxiety Ativan will be continued Depakote 500 mg twice a day for headaches as well as mood stabilization medical consult appreciated neurology consult appreciated Family involvement Follow up on labs Will monitor closely Pt was educated about risk/benefits and alternatives of medications, coping strategies (safety plan, suicide prevention), relapse prevention, importance of follow up with psychiatrist and therapist, stay away from drugs/alcohol/smoking Estimated Date of D/C: 02/03/19
[2019-01-31] MEDS: Divalproex 500 mg DR(BID formulation) PO SCH (16:11)
[2019-01-31] MEDS: Pantoprazole 40 mg EC Tab PO SCH (18:12)
[2019-02-01] MEDS: Apap-Butalbital-Caffeine 325-50-40mg Tab PO PRN ×6 (00:33→23:41)
[2019-02-01] MEDS: Pantoprazole 40 mg EC Tab PO SCH ×2 (06:01→16:02)
[2019-02-01 07:16] VITALS: RESP 20
[2019-02-01] MEDS: Venlafaxine 75 mg ER Cap PO SCH (08:27)
[2019-02-01] MEDS: Divalproex 500 mg DR(BID formulation) PO SCH ×2 (08:28→16:02)
[2019-02-01] MEDS: Metoprolol Succinate 25 mg XL Tab PO SCH (08:28)
--- NOTE | 2019-02-01 15:02 | PCM.PYCHPN ---
Psychiatric Progress Note - Psychiatric Progress Note Patient seen today, length of contact: 30min Patient Chief Complaint: "I feel fine..." Problems Identified/Issues Discussed: Symptoms, medication compliance, treatment plan. Medical Problems: ?UTI Diagnostic Results: 01/27/19 02:25 01/27/19 02:25 Lab Results 01/27/19 02:25: Salicylates < 1 L, Acetaminophen < 10.0 L 01/27/19 02:25: Free T4 1.31 01/27/19 02:25: Sodium 137, Potassium 3.8, Chloride 101, Carbon Dioxide 27, Anion Gap 13, BUN 16, Creatinine 0.7, Est GFR ( Amer) > 60, Est GFR (Non- Af Amer) > 60, Random Glucose 95, Calcium 9.5, Total Bilirubin 0.5, AST 21, ALT 13, Alkaline Phosphatase 71, Total Protein 7.7, Albumin 4.2, Globulin 3.5, Albumin/Globulin Ratio 1.2 01/27/19 02:25: WBC 9.1 D, RBC 4.33, Hgb 12.4, Hct 37.7, MCV 87.1, MCH 28.6, MCHC 32.9, RDW 15.8 H, Plt Count 332, MPV 9.5, Neut % (Auto) 58.1, Lymph % (Auto) 30.8, [place] % (Auto) 7.5 H, Eos % (Auto) 3.3, Baso % (Auto) 0.3, Lymph # (Auto) 2.8, [place] # (Auto) 0.7 H, Eos # (Auto) 0.3, Baso # (Auto) 0.03, Absolute Neuts (auto) 5.29 01/27/19 02:00: Urine Opiates Screen Negative, Urine Methadone Screen Negative, Ur Barbiturates Screen Negative, Ur Phencyclidine Scrn Negative, Ur Amphetamines Screen Negative, U Benzodiazepines Scrn Negative, U Oth Cocaine Metabols Negative, U Cannabinoids Screen Negative 01/27/19 02:00: Urine Color Yellow, Urine Appearance Clear, Urine pH 6.0, Ur Specific [place] 1.025, Urine Protein Negative, Urine Glucose (UA) Negative, Urine Ketones Trace H, Urine Blood Negative, Urine Nitrate Negative, Urine Bilirubin Small H, Urine Urobilinogen 0.2, Ur Leukocyte Esterase Small H, Urine RBC 0 - 2, Urine WBC 1 - 3, Ur Epithelial Cells 1 - 3, Urine Bacteria Occ Vital Signs Temp Pulse Pulse Resp BP Pulse Ox 01/27/19 07:16 97.9 F 85 20 118/82 01/27/19 04:20 81 20 01/27/19 04:00 97.9 F 81 20 119/62 01/27/19 01:10 85 18 121/79 98 01/26/19 23:16 97.6 F 84 18 131/86 98 Temp Pulse Resp BP Pulse Ox 97.3 F L 78 18 120/88 98 01/31/19 07:00 01/31/19 09:04 01/31/19 07:00 01/31/19 09:04 01/27/19 01:10 DSM 5 Symptoms Update: shortly, pt is 58 year old female, self reported h/o depression and anxiety, 3 previous psychiatric admission, most recent was in this facility, pt was discharged on 01/24/19, h/o suicidal attempts, most recent was about 7years ago, pt lives in boarding home, pt self referred, brought herself to the hospital looking for help for worsening of her depression and anxiety, inability to take care of self, possible suicidal ideation, passive wish to be . This copy writer is very familiar with this patient from the previous hospitalization which took place here in [place]. Patient came to the hospital looking for help for her depressive symptoms, hopelessness, helplessness, worthlessness. Patient also had passive wish to be . footwear factory worker contacted Inpatient psych unit SW, reported pt was disorganized, was knocking to other consumers doors in the boarding home, was not able to taker care of self. Pt requires further evaluation, stabilization, medication adjustment. Patient was seen today at the dinning area, pt presented more alert, less sleepy. [facility] no final decision yet. As per staff patient is fixated on Fioricet right now, keep asking for that medication even at the nighttime. Patient was educated about possible rebound headache, patient verbalized understanding. Patient is less annoyed and less irritable. pt was making statements such as "girls in the boarding home was making bird noises all night long", most likely pt was psychotic and disorganized. so far pt tolerates meds well, no side effects observed or reported, AIMS 0, no EPS. Impression: Major depressive disorder Rule out early signs of dementia r/o delirium, due to UTI ? Medication Change: No (depakote increased yesterday) Medical Record Reviewed: Yes Mental Status Examination - Cognitive Function Orientation: Person, Place, Situation Memory: Impaired Attention: WNL Concentration: Poor Association: Loose Fund of Knowledge: Poor - Mood Mood: Depressed, Anxious - Affect Affect: Constricted - Speech Speech: Appropriate (But underproductive, poverty of speech) - Formal Thought Process Formal Thought Process: Paranoia (to be ruled out) - Suicidal Ideation Suicidal Ideation: No - Homicidal Ideation Homicidal Ideation: No Goal/Treatment Plan - Goal/Treatment Plan Need for Continued Stay: Remain at risks for inpatient hospitalization, Severe depression anxiety, Discharge may exacerbated symptoms, Failed transitioning, Severe functional impairment Progress Toward Problem(s) and Goals/Treatment Plan: Milieu/structure/supportive therapy SW consultation for discharge plan and social issues Med management meds resumed Seroquel discontinued Abilify 5 mg twice a day for mood stabilization Effexor 225 mg daily extended-release for depression anxiety Ativan will be continued Depakote 500 mg twice a day for headaches as well as mood stabilization Depakote level tomorrow 02/02/2019 medical consult appreciated neurology consult appreciated Family involvement Follow up on labs Will monitor closely Pt was educated about risk/benefits and alternatives of medications, coping strategies (safety plan, suicide prevention), relapse prevention, importance of follow up with psychiatrist and therapist, stay away from drugs/alcohol/smoking Estimated Date of D/C: 02/03/19
[2019-02-02] MEDS: Apap-Butalbital-Caffeine 325-50-40mg Tab PO PRN ×2 (04:45→11:07)
[2019-02-02] MEDS: Pantoprazole 40 mg EC Tab PO SCH (05:39)
[2019-02-02 07:06] VITALS: TEMP 97.8
[2019-02-02] MEDS: Metoprolol Succinate 25 mg XL Tab PO SCH (08:38)
[2019-02-02] MEDS: Divalproex 500 mg DR(BID formulation) PO SCH (08:39)
[2019-02-02] MEDS: Venlafaxine 75 mg ER Cap PO SCH (08:39)
[2019-02-02 08:45] VITALS: BP 126/62; PULSE 68
--- NOTE | 2019-02-02 10:14 | PN ---
DATE: 02/02/2019 SUBJECTIVE: The patient is in [facility] in room 516, bed 1. She was admitted with depression. She has history of hypertension, coronary artery disease, gallbladder disease. The patient has history of dependence on nicotine. The patient lives in a boarding house; however, she was complaining of irritation of the skin and pruritus on the scalp. The patient was recently treated for body lice. PHYSICAL EXAMINATION VITAL SIGNS: This morning, the patient's pulse is 76, blood pressure 120/60, respirations are 20 and O2 sat is 98% on room air. HEENT The patient's examination of scalp, the scalp shows evidence of excoriation with dandruff. NECK: The thyroid is not enlarged. JVP is flat. Carotid pulses are present. LUNGS: Trachea central. Breath sounds vesicular. No adventitious sounds are heard. HEART: Normal sinus rhythm. S1 and S2 present. No murmurs. ABDOMEN: Soft. Liver and spleen not palpable. CENTRAL NERVOUS SYSTEM: The patient has no focal neurological deficits. Cranial nerves are intact. The patient's motor and sensory functions are clinically normal. Ambulates fairly well. DIAGNOSTIC DATA: The patient's blood work; hemoglobin 12.4. The patient's chemistries; free T4 is 1.31, all other chemical parameters are within normal limits. The patient's chest x-ray was clear. MEDICATION LIST: The patient is on Abilify 5 mg b.i.d., Ambien 5 mg at bedtime, aspirin 81 mg daily, Ativan 1 mg b.i.d. The patient is on Colace three times a day. The patient is on Depakote 500 mg b.i.d., Effexor 225 mg daily, Lipitor 10 mg daily and Lyrica 50 mg b.i.d. The patient gets ketoconazole shampoo three times a week and metoprolol 25 mg daily. The patient is also on hydroxyzine, Vistaril 50 mg every 8 hours, Zofran p.r.n. for nausea, and Protonix 40 mg daily. PLAN: Diet is heart healthy diet. The patient is improving clinically. We will continue current medical management. Follow up in the behavioral care unit. Jose Alfredo Bolanos MD [facility] # [id number] GEO
--- NOTE | 2019-02-02 15:41 | PCM.PYCHDC ---
Mental Status Examination - Mental Status Examination Orientation: Person, Place, Situation, Time Memory: Intact Mood: Neutral Affect: Constricted (But reactive and mood congruent) Speech: Appropriate Attention: Poor (Much improved) Concentration: Poor (Much improved) Association: WNL Fund of Knowledge: Poor (Baseline) Formal Thought Process: No Impairment (Patient's thought process is more or ganized) Description of patient's judgement and insight: Insight into her mental illness as well as medical issues improved significantly, patient was compliant with her medications and unit rules and regulations, no agitation, no aggression. Psychotic Thoughts and Behaviors: At the time of admission patient presented to be disorganized, possibly psychotic, by the end of this hospitalization patient's thought process is goal- directed, organized, patient denied hearing voices denied seeing things, denied paranoid ideations, patient does not appear to be psychotic. Suicidal Ideation: No Current Homicidal Ideation?: No Plan: Patient adamantly denied thoughts of harming herself or denied intent or plan. Discharge Summary - Discharge Note Reason for Hospitalization: Disorganized thoughts and disorganized behavior. Psychiatric History (includes Medical, Family, Personal Hx): See HPI Laboratory Data: 01/27/19 02:25 01/27/19 02:25 Lab Results 01/27/19 02:25: Salicylates < 1 L, Acetaminophen < 10.0 L 01/27/19 02:25: Free T4 1.31 01/27/19 02:25: Sodium 137, Potassium 3.8, Chloride 101, Carbon Dioxide 27, Anion Gap 13, BUN 16, Creatinine 0.7, Est GFR ( Amer) > 60, Est GFR (Non- Af Amer) > 60, Random Glucose 95, Calcium 9.5, Total Bilirubin 0.5, AST 21, ALT 13, Alkaline Phosphatase 71, Total Protein 7.7, Albumin 4.2, Globulin 3.5, Albumin/Globulin Ratio 1.2 01/27/19 02:25: WBC 9.1 D, RBC 4.33, Hgb 12.4, Hct 37.7, MCV 87.1, MCH 28.6, MCHC 32.9, RDW 15.8 H, Plt Count 332, MPV 9.5, Neut % (Auto) 58.1, Lymph % (Auto) 30.8, Lee % (Auto) 7.5 H, Eos % (Auto) 3.3, Baso % (Auto) 0.3, Lymph # (Auto) 2.8, Lee # (Auto) 0.7 H, Eos # (Auto) 0.3, Baso # (Auto) 0.03, Absolute Neuts (auto) 5.29 01/27/19 02:00: Urine Opiates Screen Negative, Urine Methadone Screen Negative, Ur Barbiturates Screen Negative, Ur Phencyclidine Scrn Negative, Ur Amphetamines Screen Negative, U Benzodiazepines Scrn Negative, U Oth Cocaine Metabols Negative, U Cannabinoids Screen Negative 01/27/19 02:00: Urine Color Yellow, Urine Appearance Clear, Urine pH 6.0, Ur S pecific [place] 1.025, Urine Protein Negative, Urine Glucose (UA) Negative, Urine Ketones Trace H, Urine Blood Negative, Urine Nitrate Negative, Urine Bilirubin Small H, Urine Urobilinogen 0.2, Ur Leukocyte Esterase Small H, Urine RBC 0 - 2, Urine WBC 1 - 3, Ur Epithelial Cells 1 - 3, Urine Bacteria Occ Vital Signs Temp Pulse Pulse Resp BP Pulse Ox 02/02/19 08:38 68 126/62 02/02/19 07:05 97.8 F 76 20 119/56 L 02/01/19 16:00 78 116/74 02/01/19 08:28 58 L 116/81 02/01/19 07:14 97.6 F 58 L 20 116/81 01/31/19 09:04 78 120/88 01/31/19 07:00 97.3 F L 78 18 120/88 01/30/19 16:00 76 128/90 01/30/19 07:00 97.9 F 94 H 19 117/75 01/29/19 16:00 83 139/86 01/29/19 07:04 97.8 F 82 20 142/85 01/28/19 16:09 94 H 99/63 L 01/28/19 07:05 98.0 F 60 20 106/71 01/27/19 16:00 80 120/80 01/27/19 07:16 97.9 F 85 20 118/82 01/27/19 04:20 81 20 01/27/19 04:00 97.9 F 81 20 119/62 01/27/19 01:10 85 18 121/79 98 01/26/19 23:16 97.6 F 84 18 131/86 98 Consultations:: List each consultation separately and include: 1. Reason for request. 2. Findings. 3. Follow-up Consultations: Medical consult Neurology consult appreciated See notes for more detailed information Summary of Hospital Course include:: 1. Description of specific treatment plan utilized for patients during their course of treatmen. 2. Summarize the time- course for resolution of acute symptoms and/or regressed behaviors. 3. Describe issues identified and worked on during hospitalization. 4. Describe medication utilized. 5. Describe medical problems identified and treated. 6. Reassessment of suicide risk Summary of Hospital Course: shortly, pt is 58 year old female, self reported h/o depression and anxiety, 3 previous psychiatric admission, most recent was in this facility, pt was discharged on 01/24/19, h/o suicidal attempts, most recent was about 7years ago, pt lives in boarding home, pt self referred, brought herself to the hospital looking for help for worsening of her depression and anxiety, inability to take care of self, possible suicidal ideation, passive wish to be . This field underwriter is very familiar with this patient from the previous hospitalization which took place here in [place]. Patient came to the hospital looking for help for her depressive symptoms, hopelessness, helplessness, worthlessness. Patient also had passive wish to be . circulation worker contacted Inpatient psych unit SW, reported pt was disorganized, was knocking to other consumers doors in the boarding home, was not able to taker care of self. Pt requires further evaluation, stabilization, medication adjustment. At the time of initial evaluation patient presented to be depressed, laying down with blanket covering her face, patient seems to be a very poor and unreliable historian, very vague answers for all of the questions, "I do not know, I feel very depressed, I do not know what to say", patient does not know what is the date today but is that [facility]. Patient complains of the headache during the interview and brushing this field underwriter off. "I freaked out because another lady was banking on my door, I saw her while walking on the hallway..." Patient appeared to be psychotic and disorganized. Patient was stabilized on the following medications: Abilify 5 mg daily for psychosis Depakote was initiated and titrated up to 500 mg twice a day for mood stabilization as well as migraine headaches Vistaril 50 mg daily as needed for anxiety Ativan 1 mg twice a day as needed for anxiety Lyrica was started by medical team 50 mg twice a day Effexor was continued 225 mg daily for depression anxiety at nighttime as needed for insomnia Seroquel was discontinued this admission Patient tolerated changes with her medications well, denied any side effects, AIMS 0, no EPS. this field underwriter had an impression that pt most likely delirious, or patient was noncompliant with her medications or Rule out early signs of dementia Overall patient improved significantly, patient is more active, less sleepy, process is more organized and goal-directed, depression is much better, patient is less anxious. In regards of psychosis it is improved significantly, patient was compliant with her medications, unit rules and regulations, by the end of this hospitalization patient started to attend groups, no agitation, no aggression. Patient reached maximum effect from this acute hospitalization, was considered to pose no imminent danger to self or others, patient will be discharged back to the boarding home, with the plan to transfer herself from her current boarding home to [facility] meanwhile patient will be followed up with Dr. Razo at [facility]. At the time of the discharge patient was considered to pose no imminent danger to self or others, information about follow up appointment, time and address provided to the pt, (see SW note for more detailed information). It is a patient responsibility to follow up with outpatient clinic, PMD as well as specialists In case patient will need to obtain results of studies pending at discharge, patient was provided with contact information of Psychiatric Inpatient unit [phone] as well as Medical Record Department [phone], as well as [facility] team [phone]. Patient denies smoking, denies using drugs pt was provided with prescriptions (see medication reconciliation form) Pt was educated about safety plan in case of worsening of symptoms or in case of suicidal or homicidal ideation call 911 or go to the nearest ER, also was educated to take meds as prescribed and stay away from drugs, pt verbalized understanding. - Diagnosis (1) Depression Status: Chronic Priority: High - Final Diagnosis (DSM 5) Condition upon Discharge: IMPROVED DSM 5: Rule out delirium due to general medical condition, urinary tract infection Disposition: HOME/ ROUTINE Follow-up Treatment Plan: [facility] . Prescriptions/Medication Reconciliation: Acetaminophen/Butalbital/Caf [Fioricet] 1 tab PO Q4H PRN #21 tab PRN Reason: Headache ARIPiprazole [Abilify] 5 mg PO BID #30 tab Aspirin [Aspirin Chewable] 81 mg PO DAILY #7 chew Atorvastatin [Lipitor] 10 mg PO DIN #7 tab Divalproex [Depakote DR(*BID*)] 500 mg PO BID #30 tcp Docusate [Colace] 100 mg PO BID #14 cap hydrOXYzine Pamoate [Vistaril] 50 mg PO DAILY PRN #14 cap PRN Reason: Anxiety Ketoconazole 2% Shampoo [Nizoral] 2 ml TOP MWF #1 ml LORazepam [Ativan] 1 mg PO BID PRN #30 tab PRN Reason: Anxiety Metoprolol Succinate XL [Toprol XL] 25 mg PO BRK #7 tab Pantoprazole [Protonix EC Tab] 40 mg PO 0600,1600 #14 ect Pregabalin [Lyrica] 50 mg PO BID #14 cap Venlafaxine [Effexor XR] 225 mg PO DAILY #45 cer Zolpidem [Ambien] 5 mg PO HS PRN #14 tab PRN Reason: Insomnia - Smoking Cessation Smoking Cessation Medication prescribed: No Reason for not providing: Denies smoking - Antipsychotic Medications Pt discharged on 2 or more routine antipsychotic medications: No
== END 2019-02-02 15:04 | disposition home or self-care (01) | DRG 881 ==
LOC: ED 23:10 → ERH 01-27 03:03 → PSYC 01-27 03:51
PROVIDERS: ADMIT Psychiatry & Neurology Psychiatry; ATTEND Psychiatry & Neurology Psychiatry
PROC: GZ3ZZZZ Medication Management (ICD-10-PCS; principal; 2019-01-27)
DX: F32.9 Major depressive disorder, single episode, unspecified (principal); N39.0 Urinary tract infection, site not specified; Z91.14 Patient's other noncompliance with medication regimen; I10 Essential (primary) hypertension; L21.9 Seborrheic dermatitis, unspecified; I25.10 Atherosclerotic heart disease of native coronary artery without angina pectoris; G43.909 Migraine, unspecified, not intractable, without status migrainosus; E78.5 Hyperlipidemia, unspecified; G47.00 Insomnia, unspecified; K21.9 Gastro-esophageal reflux disease without esophagitis

== ENCOUNTER 2019-03-06 22:40 | Emergency (ER) | payer MEDICARE, MEDICAID ==
[2019-03-06 22:40] VITALS: BMI 29.2
--- NOTE | 2019-03-06 23:03 | ED PDOC ---
Arrival/HPI - General Chief Complaint: Chest Pain Time Seen by Provider: 03/06/19 22:41 Historian: Patient, EMS EM Caveat: Uncooperative - History of Present Illness Narrative History of Present Illness (Text): 03/06/19 23:03 Nicole Prado is a 58 year old female, whose past medical history includes COPD, CVA, [place], GERD, chronic back pain, anxiety, and depression, who presents to the ED brought in by [facility] paramedics complaining of chest pain. As per EMS, patient has been experiencing chest pain and anxiety this evening, however patient is agitated, verbally abusive to staff, and refusing any testing /evaluation or answer questions, states she does not want to be at this hospital. Limited HPI and ROS as patient is uncooperative. Symptom Onset: Gradual Symptom Course: Unchanged Activities at Onset: Light Context: Home Past Medical History - Provider Review Nursing Documentation Reviewed: Yes - Infectious Disease Hx of Infectious Diseases: None - Cardiac Hx Hypertension: Yes - Pulmonary Hx Chronic Obstructive Pulmonary Disease (COPD): Yes - Neurological Hx Seizures: No - HEENT Hx HEENT Disorder: No - Renal Hx Renal Disorder: No - Endocrine/Metabolic Hx Hypothyroidism: Yes - Hematological/Oncological Hx Cancer: No - Integumentary Hx Dermatological Disorder: Yes Other/Comment: contact dermatitis - Musculoskeletal/Rheumatological Hx Musculoskeletal Disorders: No - Gastrointestinal Hx Gall Bladder Disease: Yes - Genitourinary/Gynecological Hx Sexually Transmitted Diseases: No - Psychiatric Hx Anxiety: Yes Hx Depression: Yes Hx Substance Use: No - Surgical History Hx Tonsillectomy: Yes - Anesthesia Hx Anesthesia: Yes Hx Anesthesia Reactions: No Hx Malignant Hyperthermia: No Family/Social History - Physician Review Nursing Documentation Reviewed: Yes Family/Social History: Unknown Family HX Smoking Status: Heavy Smoker > 10 Cigarettes Daily Hx Alcohol Use: No Hx Substance Use: No Allergies/Home Meds Allergies/Adverse Reactions: Allergies chocolate flavor Allergy (Verified 02/23/19 20:50) RASH peanut Allergy (Verified 02/23/19 20:50) ANGIOEDEMA Review of Systems - Review of Systems Systems not reviewed;Unavailable: Uncooperative Physical Exam - Physical Exam Physical Exam Limitations: Uncooperative Medical Decision Making ED Course and Treatment: 03/06/19 23:03 Impression: 58 year old female brought in by [facility] paramedics for chest pain. Plan: -- EKG -- Reassess and disposition Prior Visits: Notes and results from previous visits were reviewed. Progress Notes: On arrival to ED, pt is agitated, verbally abusive to staff, and refusing to answer any questions. Pt agreed to EKG, which showed NSR at 74 bpm, non-specific ST/T wave changes. Pt stating she did not want to be brought to this hospital and wanted to be seen at [facility]. Pt yelling and abusive to staff, continuing to refuse any attempts at labwork or physical examination. Pt proceeded to walk out from ED. - EKG Interpretation Interpreted by ED Physician: Yes Type: 12 lead EKG - Scribe Statement The provider has reviewed the documentation as recorded by the Scribe Ashlyn Villalobos Provider Scribe Attestation: All medical record entries made by the Scribe were at my direction and personally dictated by me. I have reviewed the chart and agree that the record accurately reflects my personal performance of the history, physical exam, medical decision making, and the department course for this patient. I have also personally directed, reviewed, and agree with the discharge instructions and disposition. Disposition/Present on Arrival - Present on Arrival Any Indicators Present on Arrival: No History of DVT/PE: No History of Uncontrolled Diabetes: No Urinary Catheter: No History of Decub. Ulcer: No History Surgical Site Infection Following: None - Disposition Have Diagnosis and Disposition been Completed?: Yes Diagnosis: Chest pain Disposition: LEFT W/O TREATMENT - ER ONLY Disposition Time: 23:10 Condition: STABLE Discharge Instructions (ExitCare): Chest Pain (ED) Forms: Retrace (Icelandic)
--- NOTE | 2019-03-07 11:40 | CARD ---
APPROVED REPORT Date of service: 03/06/2019 EKG Measurement Heart [id number] <Conclusion> Normal sinus rhythm Possible Left atrial enlargement Borderline ECG
== END 2019-03-07 06:31 | disposition left against medical advice (07) ==
LOC: ED 22:40
DX: R07.9 Chest pain, unspecified (principal); J44.9 Chronic obstructive pulmonary disease, unspecified; Z86.73 Personal history of transient ischemic attack (TIA), and cerebral infarction without residual deficits; I25.2 Old myocardial infarction

== ENCOUNTER 2019-03-06 23:35 | Emergency (ER) | payer MEDICARE, MEDICAID ==
[2019-03-06 23:36] VITALS: BMI 29.2
== END 2019-03-06 23:43 | disposition left against medical advice (07) ==
LOC: ED 23:35
DX: Z02.89 Encounter for other administrative examinations (principal); R07.9 Chest pain, unspecified